=== PATIENT | female | born 2005 | race Two or more races ===

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

== ENCOUNTER 2023-04-12 14:16 | Outpatient (OUT) | payer OTHER, SELFPAY ==
--- NOTE | 2023-04-12 14:18 | US_ITS ---
[address] [address] Patient Name: YVON SYED MRN: [id number] date: 2005 Sex: F Assigned Patient Location: US Current Patient Location: US Accession/Order Number: [id number] Exam Date: 04/12/2023 14:18 Report Date: 04/12/2023 15:01 At the request of: PAPI LESTER Procedure: US OB transvaginal EXAMINATION: US OB transvaginal HISTORY: MISSED MENSES COMPARISON: No relevant comparison available. FINDINGS: Rivero intrauterine gestation Gestational sac: 4.32 cm, 9 weeks 5 days CRL: 3.27 cm, 10 weeks 1 day Yolk sac: 4 mm Heart rate: 157 bpm Cervix: Closed, 4.6 cm The uterus is normal, anteverted The ovaries are normal Clinical age: 9 weeks 3 days Clinical ROB: 11/12/2023 Ultrasound age: 10 weeks 1 day Ultrasound ROB: 11/07/2023 US/US OB transvaginal IMPRESSION: Viable rivero intrauterine gestation measuring 10 weeks 1 day Electronically authenticated by: CHARLES BONDS Date: 04/12/2023 15:01
== END 2023-04-12 14:17 | disposition home or self-care (01) ==
LOC: US 14:16
PROVIDERS: Visit Provider Obstetrics & Gynecology
DX: O20.0 Threatened abortion (principal); Z3A.10 10 weeks gestation of pregnancy; N92.6 Irregular menstruation, unspecified
CPT/HCPCS: 76817

== ENCOUNTER 2023-04-20 11:00 | Outpatient (OUT) | payer OTHER, SELFPAY ==
[2023-04-20 11:36] LABS: BOX Test Sent Out Y
[2023-04-20 11:39] LABS: Basophils Percent Auto 0.1 % (0.2-2.0); Eosinophils Percent Auto 0.4 % (0.9-7.0); Hematocrit 39.9 % (36.0-48.0); Hemoglobin 13.5 g/dL (12.0-16.0); Immature Granulocytes Abs Auto 0.02 10^3/uL (0.00-0.03); Immature Granulocytes Pct Auto 0.2 % (0.0-0.5); Lymphocytes Absolute Auto 1.9 10^3/uL (1.2-3.8); Lymphocytes Percent Auto 23.4 % (20.5-60.0); Mean Corpuscular HGB Conc 33.8 g/dL (29.9-35.2); Mean Corpuscular Hemoglobin 31.9 pg (26.7-34.0); Mean Corpuscular Volume 94.3 fL (81.0-99.0); Mean Platelet Volume 9.5 fL (9.5-13.5); Monocytes Absolute Auto 0.4 10^3/uL (0.3-0.8); Monocytes Percent Auto 4.7 % (1.7-12.0); Neutrophils Absolute Auto 5.8 10^3/uL (1.4-6.5); Neutrophils Percent Auto 71.2 % (43.0-75.0); Platelet Count 313 10^3/uL (150-450); Red Blood Count 4.23 10^6/uL (4.20-5.40); Red Cell Distribution Width 11.4 % (11.0-15.0); White Blood Count 8.1 10^3/uL (4.0-11.0)
[2023-04-20 12:38] LABS: Thyroid Stimulating Hormone 0.124 uIU/mL (0.516-4.130)
[2023-04-20 12:46] LABS: Estimated Average Glucose 74 mg/dL; Glycohemoglobin A1C 4.2 % (4.5-6.2)
[2023-04-21 10:49] LABS: HBsAg Screen Negative (Negative); HCV Ab Non Reactive (Non Reactive); HIV Ab/p24 Ag Screen Non Reactive (Non Reactive)
[2023-04-21 11:04] LABS: Rapid Plasma Reagin, Quant Non Reactive titer (NonRea<1:1)
== END 2023-04-20 11:01 | disposition home or self-care (01) ==
LOC: LAB 11:02
PROVIDERS: Visit Provider Obstetrics & Gynecology
DX: N92.6 Irregular menstruation, unspecified (principal); Z36.0 Encounter for antenatal screening for chromosomal anomalies
CPT/HCPCS: 36415; 83036; 84443; 85025; 86592; 86762; 86803; 86850; 86900; 86901; 87086; 87340; 87389

== ENCOUNTER 2023-07-02 08:09 | Outpatient (OUT) | payer OTHER, SELFPAY ==
--- NOTE | 2023-07-02 08:13 | US_ITS ---
[address] [address] Patient Name: YVON SYED MRN: [id number] date: 2005 Sex: F Assigned Patient Location: [facility] Current Patient Location: [facility] Accession/Order Number: [id number] Exam Date: 07/02/2023 08:13 Report Date: 07/02/2023 09:16 At the request of: SHIVAM BLACK Procedure: US OB cervical length EXAMINATION: US OB cervical length, US OB anatomy HISTORY: CERVICAL LENGTH COMPARISON: No relevant comparison available. TECHNIQUE: Transabdominal sonographic examination was performed for obstetrical and evaluation. FINDINGS: Number: 1 Heart Rate: 140.0 bpm H.B. /min Amniotic Fluid Volume: Subjectively normal position: Cephalic presentation. Longitudinal lie Placental Location: ANTERIOR, the placental edge is 1.7 cm from the internal os Cervix Length: 4 cm , closed Normal anatomy: Lateral ventricles, cerebellum, posterior fossa, nose, lips, orbits, four-chamber heart, RVOT, LVOT, diaphragm, stomach, kidneys, abdominal insertion, bladder, umbilical arteries, three-vessel cord, spine, extremities BIOMETRY: BPD: 5.2 cm 21 weeks 5 days , 74% HC: 19.5 cm 21 weeks 5 days, 71% AC: 17.5 cm 22 weeks 3 days, 85% FL: 3.9 cm 22 weeks 3 days , 86% EFW:494.7 grams; 1 lb. 1 oz., greater than 97% FL/AC: 22.2 FL/BPD: 75.2 HC/AC: 1.1 GESTATIONAL AGE: Age by EDC: 21 weeks 0 days Age by current US: 22 weeks 1 days ROB by current US: 11/04/2023 ROB by EDC: 11/12/2023 US/US OB cervical length IMPRESSION: Marginal placenta previa. The placental edge is 1.7 cm from the internal os Closed cervix measuring 4 cm Otherwise normal anatomy scan *Reference: [employer] Practice Guideline for the performance of Obstetric Ultrasound Examinations, January 07, 2007. Electronically authenticated by: CHARLES BONDS Date: 07/02/2023 09:16
--- NOTE | 2023-07-02 08:13 | US_ITS ---
[address] [address] Patient Name: YVON SYED MRN: [id number] date: 2005 Sex: F Assigned Patient Location: [facility] Current Patient Location: [facility] Accession/Order Number: [id number] Exam Date: 07/02/2023 08:13 Report Date: 07/02/2023 09:16 At the request of: SHIVAM BLACK Procedure: US OB anatomy EXAMINATION: US OB cervical length, US OB anatomy HISTORY: CERVICAL LENGTH COMPARISON: No relevant comparison available. TECHNIQUE: Transabdominal sonographic examination was performed for obstetrical and evaluation. FINDINGS: Number: 1 Heart Rate: 140.0 bpm H.B. /min Amniotic Fluid Volume: Subjectively normal position: Cephalic presentation. Longitudinal lie Placental Location: ANTERIOR, the placental edge is 1.7 cm from the internal os Cervix Length: 4 cm , closed Normal anatomy: Lateral ventricles, cerebellum, posterior fossa, nose, lips, orbits, four-chamber heart, RVOT, LVOT, diaphragm, stomach, kidneys, abdominal insertion, bladder, umbilical arteries, three-vessel cord, spine, extremities BIOMETRY: BPD: 5.2 cm 21 weeks 5 days , 74% HC: 19.5 cm 21 weeks 5 days, 71% AC: 17.5 cm 22 weeks 3 days, 85% FL: 3.9 cm 22 weeks 3 days , 86% EFW:494.7 grams; 1 lb. 1 oz., greater than 97% FL/AC: 22.2 FL/BPD: 75.2 HC/AC: 1.1 GESTATIONAL AGE: Age by EDC: 21 weeks 0 days Age by current US: 22 weeks 1 days ROB by current US: 11/04/2023 ROB by EDC: 11/12/2023 US/US OB anatomy IMPRESSION: Marginal placenta previa. The placental edge is 1.7 cm from the internal os Closed cervix measuring 4 cm Otherwise normal anatomy scan *Reference: [facility] Practice Guideline for the performance of Obstetric Ultrasound Examinations, January 07, 2007. Electronically authenticated by: CHARLES BONDS Date: 07/02/2023 09:16
--- OUTSIDE RECORDS SUMMARY | 2023-07-02 08:13 | XMS_ITS | CCD ---
Author Organization [facility] Care Team Providers Care Dip Stand Loader Name Role Phone Rosalinda Rodrigues Primary Care Provider DANELLE SALDAÑA Primary Care Unavailable SELF, REFERRED Referring Unavailable RONNY ARAUJO Attending Unavailable URIAH LEUNG Admitting Unavailable Lilia VISUAL MERCHANDISING MANAGER - TESTER/LIFT TRUCKER, Rosalinda C Primary Care Provi rashaad Unavailable LILIA, ROSALINDA C Primary Care Unavailable VIJAY RUSSELL Attending Unavailable LILIA, ROSALINDA C Primary Care Unavailable VIJAY RUSSELL Attending Unavailable LILIA, ROSALINDA C Referring Unavailable LILIA, ROSALINDA C Primary Care Unavailable LILIA, ROSALINDA C Referring Unavailable LILIA, ROSALINDA C Primary Care Unavailable LILIA, ROSALINDA C Primary Care Unavailable SHIVA BAILEY Attending Unavailable Dayanara HARRELL, Roland Primary Care Provider RICKY ALBERT Referring Unavailable ROLAND KRAUS Primary Care UnavailROLAND Martines Referring Unavailabl ROLAND Sanchez Primary Care Unavailabl ROULA Vaughan Referring Unavailable ROLAND KRAUS Primary Care Unavailivory KUMAR, DR SHAHEEN Nassar Admitting Unavailabl e SOFIA .SHIVAM Consulting Unavailable JOSÉ, DR SHAHEEN Nassar Attending Unavailabl e KARDANITZA ., DR HESTER Attending Unavailabl e KARASIK ., DR HESTER Admitting Unavailabl e KARASIK ., DR HESTER Consulting Unavailabl e KARASIK ., DR HESTER Consulting Unavailabl e KARASIK ., DR HESTER Attending Unavailabl e KARASIK ., DR HESTER Admitting Unavailabl e NONE, XXXX Primary Care Physician Unavailab Marvin Roque Attending Unavailable PAPI LESTER Attending Unavailable SHIVAM BLACK Attending Unavailable Medications Current Medications Medication Drug Class(es) Dates Sig (Normalized) Sig (Original) acetaminophen 500 mg oral tablet (3 sources) Start: 04-10-2020 take 1 tablet by mouth every six hours as needed for pain acetaminophen (TYLENOL) 500 MG tablet Take 1 tablet by mouth every 6 hours as needed for Pain 60 tablet 0 04/10/2020 Active [id number] 200 actuat albuterol 0.09 mg/actuat metered dose inhaler (2 sources) beta2-Adrenergic Agonist Start: 03-04-2021 take 2 puff(s) by inhalation every four hours as needed for wheezing albuterol sulfate HFA 108 (90 Base) MCG/ACT inhaler Indications: Mild intermittent asthma without complication Inhale 2 puffs into the lungs every 4 hours as needed for Wheezing or Shortness of Breath 1 each 1 03/04/2021 Active Start: 03-20-2019 take 2 puff(s) by in halation every six hours as needed for wheezing albuterol sulfate HFA 108 (90 Base) MCG/ACT inhaler Indications: Acute bronchitis, unspecified organism Inhale 2 puffs into the lungs every 6 hours as needed for Wheezing 1 Inhaler 0 03/20/2019 Active albuterol sulfate HFA 108 (90 Base) MCG/ACT inhaler (6 sources) Start: 03-20-2019 take 2 puff(s) by inhalation every six hours as needed for wheezing albuterol sulfate HFA 108 (90 Base) MCG/ACT inhaler Indications: Acute bronchitis, unspecified organism Inhale 2 puffs into the lungs every 6 hours as needed for Wheezing 1 Inhaler 0 03/20/2019 Active cetirizine hydrochloride 10 mg oral tablet (1 source) Histamine-1 Receptor Antagonist Start: 09-27-2022 take 1 tablet by mouth once daily cetirizine 10 mg Tab 10 mg = 1 tab(s), Oral, Daily, # 30 tab(s), Refills(s) 0 Start Date: 09/27/22 Status: Ordered docusate sodium 50 mg / sennosides, intermediate 8.6 mg oral tablet (3 sources) Start: 04-14-2020 take 8.6-50 mg by mouth once as needed senna-docusate (PERICOLACE) 8.6-50 MG per tablet Indications: Constipation, unspecified constipation type Take 1 tablet by mouth daily as needed for Constipation 20 tablet 0 04/14/2020 Active fluconazole 100 mg oral tablet (1 source) Azole Antifungal Start: 09-14-2020 End: 09-21-2020 take 1 tablet by mouth once daily fluconazole (DIFLUCAN) 100 MG tablet Indications: Acute vaginitis Take 1 tablet by mouth daily for 7 days 7 tablet 0 09/14/2020 09/21/2020 Active ibuprofen 400 mg oral tablet (5 sources) Nonsteroidal Anti-inflammatory Drug Start: 03-31-2020 End: 04-10-2020 take 1 tablet by mouth every six hours as needed for pain ibuprofen (IBU) 400 MG tablet Take 1 tablet by mouth every 6 hours as needed for Pain 30 tablet 0 04/10/2020 Active 1 ml medroxyPROGESTERone acetate 150 mg/ml injection (6 sources) Progestin Start: 04-10-2019 medroxyPROGESTERone (DEPO-PROVERA) 150 MG/ML injection Inject 1 mL into the muscle every 3 months for 1 dose 1 mL 1 04/10/2019 Active metroNIDAZOLE 500 mg oral tablet (1 source) Nitroimidazole Antimicrobial Start: 09-14-2020 End: 09-21-2020 take 1 tablet by mouth twice daily metroNIDAZOLE (FLAGYL) 500 MG tablet Indications: Acute vaginitis Take 1 tablet by mouth 2 times daily for 7 days 14 tablet 0 09/14/2020 09/21/2020 Active 3 ml sodium chloride 9 mg/ml injection (3 sources) Start: 04-10-2020 sodium chloride flush 0.9 % injection 10 mL Start: 04-10-2020 End: 04-10-2020 0.9 % sodium chloride bolus Completed/Discontinued Medications Medication Drug Class(es) Dates Sig (Normalized) Sig (Original) cephalexin 250 mg oral capsule (3 sources) Cephalosporin Antibacterial Start: 04-10-2020 End: 04-10-2020 cephALEXin (KEFLEX) capsule 500 mg Start: 04-10-2020 End: 04-15-2020 take 1 capsule by mouth three times daily cephALEXin (KEFLEX) 500 MG capsule Take 1 capsule by mouth 3 times daily for 5 days 15 capsule 0 04/10/2020 04/15/2020 Active iopamidol (ISOVUE-370) 76 % injection 75 mL (1 source) Start: 04-10-2020 End: 04-10-2020 iopamidol (ISOVUE-370) 76 % injection 75 mL 1 ml morphine sulfate 4 mg/ml injection (1 source) Opioid Agonist Start: 04-10-2020 End: 04-10-2020 morphine sulfate (PF) injection 4 mg 2 ml ondansetron 2 mg/ml injection (3 sources) Serotonin-3 Receptor Antagonist Start: 04-10-2020 End: 04-10-2020 ondansetron (ZOFRAN) injection 4 mg Start: 03-31-2020 ondansetron (Z OFRAN ODT) [address] 1 tablet under the tongue every 8 hours as needed for Nausea or Vomiting 10 tablet 0 03/31/2020 Active predniSONE 20 mg oral tablet (1 source) Start: 09-27-2022 take 1 tablet by mouth once daily predniSONE 20 mg Tab 20 mg = 1 tab(s), Oral, As Directed, Take two tabs by mouth daily for three days, then one tab daily for three days, # 9 tab(s), Refills(s) 0 Start Date: 09/27/22 Status: Ordered Problems Active Problems Problem Classification Problem Date Documented Date Episodic/Chronic Abdominal pain (3 sources) Right lower quadrant pain; Translations: [Suprapubic pain] Episodic Allergic reactions (2 sources) Urticaria; Translations: [Contact dermatitis] Onset: 09-27-2022 Episodic Asthma (8 sources) Exercise-induced asthma; Translations: [Exercise induced bronchospasm] Onset: 01-02-2018 01-02-2018 Chronic Headache; including migraine (3 sources) Headache; including migraine; Translations: [HEADACHE UNSPECIFIED] Onset: 03-19-2022 Other female genital disorders (1 source) Vaginal discharge; Translations: [Other specified noninflammatory disorders of vagina] Episodic Other female genital disorders (4 sources) Other specified noninflammatory disorders of vagina; Translations: [OTH SPEC NONINFLAMMATORY D/O VAGINA] Onset: 07-10-2022 Episodic Other upper respiratory infections (1 source) Viral upper respiratory tract infection; Translations: [Viral URI with cough] Episodic Ovarian cyst (1 source) Cyst of ovary; Translations: [Cyst of ovary, unspecified laterality] Episodic Residual codes; unclassified (1 source) Unprotected sexual intercourse; Translations: [Unprotected sexual intercourse] Episodic Unclassified (1 source) Patient encounter status; Translations: [Well adolescent visit] Urinary tract infections (1 source) Acute cystitis; Translations: [Acute cystitis with hematuria] Episodic Past or Other Problems Problem Classification Problem Date Documented Date Episodic/Chronic Genitourinary symptoms and ill-defined conditions (3 sources) Dysuria; Translations: [Dysuria] Onset: 07-26-2020 07-26-2020 Episodic Immunizations and screening for infectious disease (5 sources) Patient encounter status; Translations: [Encounter for screening for infections with a predominantly sexual mode of transmission] Onset: 03-28-2022 Episodic Inflammatory diseases of female pelvic organs (3 sources) Acute vaginitis; Translations: [Acute vaginitis] Onset: 03-18-2021 Episodic Influenza (1 source) Influenza due to other identified influenza virus with other respiratory manifestations; Translations: [FLU D/T OTH ID FLU VIR OTH RSP MANF] Onset: 03-22-2022 Episodic Other lower respiratory disease (8 sources) Dyspnea on exertion; Translations: [Dyspnea, unspecified] Onset: 12-26-2016 12-26-2016 Episodic Other screening for suspected conditions (not mental disorders or infectious disease) (8 sources) Special examination status; Translations: [Encounter for examination for participation in sport] Onset: 01-02-2018 01-02-2018 Episodic Other skin disorders (8 sources) Dry skin; Translations: [Xerosis cutis] Onset: 12-26-2016 12-26-2016 Episodic Results Test Name Value Interpretation Reference Range [facility] ED Note-Physicianon 10-08-19 ED Note-Physician Basic Information Time Seen: Be XIONG, Ruperto Luna. 09/27/2022 11:08 Chief Complaint c/o intermittent rash and itching ponset 2 days ago no relief carly houston denied any difficulty breathing History of Present Illness 17-year-old female reports emerged department with chief complaint of a rash with itching that started about 2 days ago. States that she has no relief. Denies any known contact with anything. Denies any new soaps detergents or shampoos. States it just itches. Reports that is not really helping with Benadryl, she does not like to take Benadryl. Denies any trouble breathing, nausea or vomiting. Denies any other symptoms at this time. Reports that mostly behind her ears, neck, goes down onto her chest. States is on her hands as well. Review of Systems A 10 point review of systems is negative except as noted above. Medical and Surgical History: Reviewed and noted Social history: Lives at home Family History: Reviewed. Tobacco: Denies Physical Exam Vitals & Measurements T: 37.0 ?C(Oral) HR: 80(Peripheral) RR: 16 BP: 103/63 SpO2: 98% HT: 162.56 cm WT: 55.3 kg BMI: 20.93 General: The patient appears well and in no apparent distress. Patient is resting comfortably in chair. Afebrile Skin: Warm, dry, no pallor noted. There is very mild erythema, and a urticarial type fashion around the patient's bilateral ears, and extending onto her chest. Small areas around the arm. No warmth with palpation. Blanches when palpated. Head: Normocephalic, atraumatic Neck: No JVD Eye: PERRLA, EOMI ENT: Moist mucus membranes Cardiovascular: Regular rate normal peripheral perfusion Respiratory: No respiratory distress no accessory muscle use no obvious audible wheezing Chest Wall: no deformity Musculoskeletal: normal ROM, no deformity, no swelling GI: No obvious distention soft nontender nondistended no guarding rebounding or rigidity Neurological: A&O moves all extremities equal strength and symmetry Psychiatric: Cooperative and appropriate Medical Decision Making MEDICAL DECISION MAKING Number and Complexity of Problems Differential Diagnosis: [] [facility] Data External documents reviewed: [] My EKG interpretation: [] My CT interpretation: [] My X-ray interpretation: [] My Ultrasound interpretation: [] Decision rules/scores evaluated: [] Discussed with: [] Treatment and Disposition ED Course: 17-year-old female reports emergency department with chief complaint of a rash on her ears, going down onto her face and chest. States that she is not sure why she got into. Reports itching. States been gone for 2 days. Denies any other symptoms with this. Denies any fevers chills nausea or vomiting. On physical exam it does appear to be urticarial. Blanches when palpated. I believe that this is a contact dermatitis that she may have gotten something into. Unknown what she may have been exposed to. Nevertheless, patient be started on cetirizine, as well as prednisone to help with symptoms. Discussed return precautions. Follow-up with your primary care provider in 3 to 5 days. If symptoms worsen, do not improve, or new symptoms arise please report back to emergency department for further evaluation. The patient was understanding and agreeable to plan moving forward. Shared decision making: [] Code status: [] Assessment/Plan Contact dermatitis (L25.9: Unspecified contact dermatitis, unspecified cause) Orders: cetirizine, 10 mg = 1 tab(s), Oral, Daily, # 30 tab(s), Refills(s) 0 predniSONE, 20 mg = 1 tab(s), Oral, As Directed, Take two tabs by mouth daily for three days, then one tab daily for three days, # 9 tab(s), Refills(s) 0 Disposition Plan Patient Discharge Condition Stable Discharge Disposition To home Discharge Prescription List Prescriptions cetirizine 10 mg Tab, 10 mg= 1 tab(s), Oral, Daily predniSONE 20 mg Tab, 20 mg= 1 tab(s), Oral, As Directed Follow-up With When Contact Information Anaid LUTZ In 3 days 09/30/2022 EDT [address] [facility] [address] [place] [id number] Business (1) Additional Instructions: Follow-up with your primary care provider in 3 to 5 days. If symptoms worsen, do not improve, or new symptoms arise please report back to emergency department for further evaluation. Patient Education Contact Dermatitis, [id number] Attestation Patient seen and evaluated by the physician resident programs assistant. Attending physician was present in the emergency department and supervised care. This visit was performed by both the physician and an APC. I performed all aspects of the MDM as documented. This report was transcribed using voice recognition software. Every effort was made to ensure accuracy, however, inadvertently computerized ent physician mistakes may be present. Appropriate healthcare PPE was used in evaluating this patient. The patient was placed in a mask. The healthcare provider was wearing mask, gloves, an (more content not included)... [facility] Comment on above: Result Comment: Elec tronically Signed By: Ruperto Lr PA-C\.br\Date and Time Signed: 09/27/22 11:48 EDT\.br\Electronically Co-Signed By: Marvin Bartlett MD\.br\Date and Time Co-Signed: 10/07/22 08:14 EDT Consent for Treatmenton 09-08 Consent for Treatment [id number] .[id number]:127 [facility] Discharge Instructionson Discharge Instructions [id number] 1.00CD:127 [facility] ED Clinical Summaryon 2022 ED Clinical Summary [place] [id number] ED Clinical Summary Person Information Name: YVON SMALLS [facility] Age: 17 Years : 2005 Sex: Female Language: Estonian PCP: NONE, XXXX Marital Status: Single Visit Id: Visit Reason: Rash; RASH ON FACE Speciality: Acuity: 4 Enc Type: Emergency Med Service: Emergency Arrival: 09/27/2022 10:57:13 Discharge: 09/27/2022 11:39:30 LOS: 000 00:42 Checkin: 09/27/2022 10:57:13 Checkout: 09/27/2022 11:39:30 Dispo Type: Home (Routine DC) EVENTS: Event Name Event Status Request Date/Time Start Date/Time Complete Date/Time Arrive Complete 09/27/2022 10:57:13 09/27/2022 10:57:13 09/27/2022 10:57:13 Document Home Meds Request 09/27/2022 10:57:13 Triage Complete 09/27/2022 10:57:13 09/27/2022 11:05:49 09/27/2022 11:05:49 Bed Assign Complete 09/27/2022 11:06:00 09/27/2022 11:06:00 09/27/2022 11:06:00 Dr Exam Complete 09/27/2022 11:06:00 09/27/2022 11:08:06 09/27/2022 11:08:06 RN Exam Complete 09/27/2022 11:06:00 09/27/2022 11:38:49 09/27/2022 11:38:49 Registration Complete 09/27/2022 11:08:06 09/27/2022 11:30:19 09/27/2022 11:30:19 Discharge Complete 09/27/2022 11:28:23 09/27/2022 11:39:35 09/27/2022 11:39:35 Reg Complete Request 09/27/2022 11:30:19 Reg Bed Request Complete 09/27/2022 11:30:19 09/27/2022 11:30:19 09/27/2022 11:30:19 Transfer Complete 09/27/2022 11:39:35 09/27/2022 11:39:35 09/27/2022 11:39:35 ADDRESS: [address] [place] [phone] PHYS DOC NOTES: MEDICAL INFORMATION: Prescriptions Given: New Medications Printed Prescriptions cetirizine (cetirizine 10 mg Tab) 1 Tablets By Mouth every day. Refills: 0. predniSONE (predniSONE 20 mg Tab) 1 Tablets By Mouth As Directed. Take two tabs by mouth daily for three days, then one tab daily for three days. Refills: 0. PATIENT EDUCATION INFORMATION: Instructions: Contact Dermatitis, [id number] Follow up: With: Address: When: Anaid LUTZ [address] [place] [address] [address], [place] [address] Business (1) In 3 days 09/30/2022 Comments: Follow-up with your primary care provider in 3 to 5 days. If symptoms worsen, do not improve, or new symptoms arise please report back to emergency department for further evaluation. DIAGNOSIS: Contact dermatitis [facility] ED Patient Education Noteon 09-27-2022 ED Patient Education Note Dermatology Contact Dermatitis Dermatitis is redness, soreness, and swelling (inflammation) of the skin. Contact dermatitis is a reaction to something that touches the skin. There are two types of contact dermatitis: ? Irritant contact dermatitis. This happens when something bothers (irritates) your skin, like soap. ? Allergic contact dermatitis. This is caused when you are exposed to something that you are allergic to, such as poison joaquin. What are the causes? ? Common causes of irritant contact dermatitis include: ? Makeup. ? Soaps. ? Detergents. ? Bleaches. ? Acids. ? Metals, such as nickel. ? Common causes of allergic contact dermatitis include: ? Plants. ? Chemicals. ? Jewelry. ? Latex. ? Medicines. ? Preservatives in products, such as clothing. What increases the risk? ? Having a job that exposes you to things that bother your skin. ? Having asthma or eczema. What are the signs or symptoms? Symptoms may happen anywhere the irritant has touched your skin. Symptoms include: ? Dry or flaky skin. ? Redness. ? Cracks. ? Itching. ? Pain or a burning feeling. ? Blisters. ? Blood or clear fluid draining from skin cracks. With allergic contact dermatitis, swelling may occur. This may happen in places such as the eyelids, mouth, or genitals. How is this treated? ? This condition is treated by checking for the cause of the reaction and protecting your skin. Treatment may also include: ? Steroid creams, ointments, or medicines. ? Antibiotic medicines or other ointments, if you have a skin infection. ? Lotion or medicines to help with itching. ? A bandage (dressing). Follow these instructions at home: Skin care ? Moisturize your skin as needed. ? Put cool cloths on your skin. ? Put a baking soda paste on your skin. Stir water into baking soda until it looks like a paste. ? Do not scratch your skin. ? Avoid having things rub up against your skin. ? Avoid the use of soaps, perfumes, and dyes. Medicines ? Take or apply lnxz-web-qnxyscj and prescription medicines only as told by your doctor. ? If you were prescribed an antibiotic medicine, take or apply it as told by your doctor. Do not stop using it even if your condition starts to get better. Bathing ? Take a bath with: ? Epsom salts. ? Baking soda. ? Colloidal oatmeal. ? Bathe less often. ? Bathe in warm water. Avoid using hot water. Bandage care ? If you were given a bandage, change it as told by your doctor. ? Wash your hands with soap and water before and after you change your bandage. If soap and water are not available, use hand rotary kiln operator. General instructions ? Avoid the things that caused your reaction. If you do not know what caused it, keep a journal. Write down: ? What you eat. ? What skin products you use. ? What you drink. ? What you wear in the area that has symptoms. This includes jewelry. ? Check the affected areas every day for signs of infection. Check for: ? More redness, swelling, or pain. ? More fluid or blood. ? Warmth. ? Pus or a bad smell. ? Keep all follow-up visits as told by your doctor. This is important. Contact a doctor if: ? You do not get better with treatment. ? Your condition gets worse. ? You have signs of infection, such as: ? More swelling. ? Tenderness. ? More redness. ? Soreness. ? Warmth. ? You have a fever. ? You have new symptoms. Get help right away if: ? You have a very bad headache. ? You have neck pain. ? Your neck is stiff. ? You throw up (vomit). ? You feel very sleepy. ? You see red streaks coming from the area. ? Your bone or joint near the area hurts after the skin has healed. ? The area turns darker. ? You have trouble breathing. Summary ? Dermatitis is redness, soreness, and swelling of the skin. ? Symptoms may occur where the irritant has touched you. ? Treatment may include medicines and skin care. ? If you do not know what caused your reaction, keep a journal. ? Contact a doctor if your condition gets worse or you have signs of infection. This information is not intended to replace advice given to you by your health care provider. Make sure you discuss any questions you have with your health care provider. Document Revised: 01/09/2022 Document Reviewed: 01/09/2022 [employer] Content Patient Education ? 2022 [employer]. [facility] ED Patient Summaryon 023 ED Patient Summary [address] [address] Patient Discharge Instructions Person Information Name: YVON SMALLS Age: 17 Years Arrival Date: 09/27/2022 10:57:13 Discharge Diagnosis: Contact dermatitis Primary Care Physician: NONE, XXXX Provider Information Primary Provider: Advanced Fare Enforcement Officer:None The exam and treatment you received in the Emergency Department were for an urgent problem and are not intended as complete care. It is important that you follow up with a doctor, nurse practitioner, or physician?s resident programs assistant for ongoing care. If your symptoms become worse or you do not improve as expected and you are unable to reach your usual health care provider, you should return to the Emergency Department. We are available 24 hours a day. YVON SMALLS has been given the following list of patient education materials, prescriptions and follow-up instructions: Follow-up Instructions: With: Address: When: Anaid LUTZ [address] [place] [address] [address] [phone] Business (1) In 3 days 09/30/2022 Comments: Follow-up with your primary care provider in 3 to 5 days. If symptoms worsen, do not improve, or new symptoms arise please report back to emergency department for further evaluation. In the event that this physician does not participate in your insurance network, please consult with your insurance company to find a nearby participating provider. Patient Education Materials: Contact Dermatitis, Yicx-vz-Jhyn A MESSAGE TO ALL PATIENTS REGARDING OPIOIDS PRESCRIPTION OPIOIDS: WHAT YOU NEED TO KNOW Prescription opioids can be used to help relieve rydkwele-zc-fziqnn pain and are often prescribed following a surgery or injury, or for certain health conditions. These medications can be an important part of the treatment but also come with serious risks. It is important to work with your healthcare provider to make sure you are getting the safest, most effective care. WHAT ARE THE RISKS AND SIDE EFFECTS OF OPIOID USE? Prescription opioids carry serious risks of addiction and overdose, especially with prolonged use. An opioid overdose, often marked by slowed breathing, can cause sudden . The use of prescription opioids can have a number of side effects as well, even when taken as directed: ? Tolerance?meaning you might need to take more of the medication for the same pain relief ? Physical dependence?meaning you have symptoms of withdrawal when a medication is stopped ? Increased sensitivity to pain ? Constipation ? Nausea, vomiting, and dry mouth ? Sleepiness and dizziness ? Confusion ? Depression ? Low levels of testosterone that can result in lower sex drive, energy, and strength ? Itching and sweating RISKS ARE GREATER WITH: ? History of drug misuse, substance use disorder, or overdose ? Mental health conditions (such as depression or anxiety) ? Sleep apnea ? Older age (65 years and older) ? Avoid alcohol while taking prescription opioids. Also, unless specifically advised by your health care provider, medications to avoid include: ? Benzodiazepines (such as Xanax or Valium) ? Muscle relaxants (such as Soma or Flexeril) ? Hypnotics (such as Ambien or Lunesta) ? Other prescription opioids KNOW YOUR OPTIONS Talk to your health care provider about ways to manage your pain that don?t involve prescription opioids. Some of these options may actually work better and have fewer risks and side effects. Options may include: ? Pain relievers such as acetaminophen, ibuprofen, and naproxen ? Some medication that are also used for depression or seizures ? Physical therapy and exercise ? Cognitive behavioral therapy, a psychological, goal-directed approach, in which patients learn how to modify physical, behavioral, and emotional triggers of pain and stress. IF YOU ARE PRESCRIBED OPIOIDS FOR PAIN: ? Never take opioids in greater amounts or more often than prescribed. ? Follow up with your primary health care provider. o Work together to create a plan on how to manage your pain. o Talk about ways to help manage your pain that don?t involve prescription opioids. o Talk about any and all concerns and side effects. ? Help prevent misuse and abuse o Never sell or share prescription opioids. o Never use another person?s prescription opioids. ? Store prescription opioids in a secure place and out of reach of others (this may include visitors, children, friends, and family). ? Safely dispose of unused prescription opioids: Find your community drug take-back program or your pharmacy mail-back program, or flush them down the toilet, following guidance from the Food and Drug Administration (www.fda.gov/Drugs/Re sourcesForYou). ? Visit www.cdc.gov/drugoverd ose to learn about the (more content not included)... Normal [facility] CHLAMYDIA/GONOCOCCUS RANJAN (SW AB/URINE/PAPon 07-13-2022 Chlamydia trachomatis, RANJAN Negative Normal Negative [facility] Comment on above: Performed By: #### C T/NGNA #### [facility] [address] [place] [address] Dr. Marbella Campos Neisseria gonorrhoeae, RANJAN Negative Normal Negative [facility] Comment on above: Performed By: #### C T/NGNA #### [facility] [address] [place] [address] Dr. Marbella Campos VAGINITIS/VAGINOSIS DNA PROB David 07-12-2022 Otto species Negative Normal Negative [facility] Comment on above: Performed By: #### V AGINT #### [facility] [address] [place] [address] Dr. Marbella Campos Gardnerella vaginalis Positive Abnormal Negative [facility] Comment on above: Performed By: #### V AGINT #### [facility] [address] [place] [address] Dr. Marbella Campos Trichomonas vaginalis Negative Normal Negative [facility] Comment on above: Performed By: #### V AGINT #### [facility] [address] [place] [address] Dr. Marbella Campos CHLAMYDIA/GONOCOCCUS RANJAN (SW AB/URINE/PAPon 03-31-2022 Chlamydia trachomatis, RANJAN Negative Normal Negative [facility] Comment on above: Performed By: #### C T/NGNA #### [facility] [address] [place] [address] Dr. Marbella Campos Neisseria gonorrhoeae, RANJAN Negative Normal Negative [facility] Comment on above: Performed By: #### C T/NGNA #### [facility] [address] [place] [address] Dr. Marbella Campos VAGINITIS/VAGINOSIS DNA PROB David 03-30-2022 Otto species Negative Normal Negative [facility] Comment on above: Performed By: #### V AGINT #### [facility] [address] [place] [address] Dr. Marbella Campos Gardnerella vaginalis Positive Abnormal Negative [facility] Comment on above: Performed By: #### V AGINT #### [facility] [address] [place] [address] Dr. Marbella Campos Trichomonas vaginalis Negative Normal Negative [facility] Comment on above: Performed By: #### V AGINT #### [facility] [address] [place] [address] Dr. Marbella Campos INFLUENZA A AND B AGon 03-19 INFLUBNEG SEE BELOW Normal [facility] Comment on above: Result Comment: Nega tive for Flu B protein antigen. Infection due to Flu B cannot be ruled out. Flu B antigen in the sample may be below the detection limit of the test. Performed By: #### I NFLUAB #### [facility] [address] [place] [address] Dr. Marbella Campos INFLUENZA A AG Positive Abnormal NEGATIVE SEE COMMENT [facility] Comment on above: Performed By: #### I NFLUAB #### [facility] [address] [place] [address] Dr. Marbella Campos INFLUENZA B AG Negative Normal NEGATIVE SEE COMMENT [facility] Comment on above: Performed By: #### I NFLUAB #### [facility] [address] [place] [address] Dr. Marbella Campos INFLUPOS SEE BELOW Normal [facility] Comment on above: Result Comment: NOTE : Live attenuated influenzae vaccine viruses can cause a positive result for a rapid influenza diagnostic test if administered up to 7 days prior to rapid testing. Performed By: #### I NFLUAB #### [facility] [address] [place] [address] Dr. Marbella Campos INTERNAL CONTROLS Within Normal Limits Normal Wi thin Normal Limits [facility] Comment on above: Performed By: #### I NFLUAB #### [facility] [address] [place] [address] Dr. Marbella Campos C.trachomatis N.gonorrhoeae DNAon 01-17-2022 C. trachomatis DNA RANJAN+probe Ql (Genital specimen) POSITIVE: CHLAMYDIA TRACHOMATIS DNA detected by nucleic acid amplification. Abnormal NEGATIVE [facility] Comment on above: This test is intended for medical purposes only and is not valid for the evaluation of suspected sexual abuse or for other forensic purposes. In certain contexts, culture may be required to meet applicable laws and regulations for diagnosis of C. trachomatis and N. gonorrhoeae infections. Per 2014 CDC recommendations, this test does not include confirmation of positive results by an alternative nucleic acid target. Results reported to the appropriate Health Department Interpretation and review of laboratory results Abnormal [facility] N. gonorrhoeae DNA Negative NEGATIVE [facility] Comment on above: NEISSERIA GONORRHOEA E DNA not detected by nucleic acid amplification. This test is intended for medical purposes only and is not valid for the evaluation of suspected sexual abuse or for other forensic purposes. In certain contexts, culture may be required to meet applicable laws and regulations for diagnosis of C. trachomatis and N. gonorrhoeae infections. Per 2014 CDC recommendations, this test does not include confirmation of positive results by an alternative nucleic acid target. Specimen Description .CERVIX [facility] Chlamydia/GC,DNA Ampon 01-17 Chlamydia Probe POSITIVE: CHLAMYDIA TRACHOMATIS DNA detected by nucleic acid amplification. Abnormal NEG [facility] Comment on above: Result Comment: This test is intended for medical purposes only and is not valid for the evaluation of suspected sexual abuse or for other forensic purposes. In certain contexts, culture may be required to meet applicable laws and regulations for diagnosis of C. trachomatis and N. gonorrhoeae infections. Per 2014 CDC recommendations, this test does not include confirmation of positive results by an alternative nucleic acid target. Results reported to the appropriate Health Department Performed By: #### S [facility] #### [facility] [place] [address] Metal Trimmer: Yeyo Spencer MD Gonorrhea Probe Negative Normal NEG [facility] Comment on above: Result Comment: NEIS SERIA GONORRHOEAE DNA not detected by nucleic acid amplification. This test is intended for medical purposes only and is not valid for the evaluation of suspected sexual abuse or for other forensic purposes. In certain contexts, culture may be required to meet applicable laws and regulations for diagnosis of C. trachomatis and N. gonorrhoeae infections. Per 2014 CDC recommendations, this test does not include confirmation of positive results by an alternative nucleic acid target. Performed By: #### S WCGP #### [facility] [address] [place] [id number] Metal Trimmer: Yeyo Spencer MD Vaginitis DNA Probeon 2021 Otto Negative Normal NEG [facility] Comment on above: Result Comment: for Otto sp. Method of testing is a DNA probe intended for detection and identification of Otto species, Gardnerella vaginalis, and Trichomonas vaginalis nucleic acid in vaginal fluid specimens from patients with symptoms of vaginitis/vaginosis. Performed By: #### V AGP #### [facility] [address] [place] [id number] Metal Trimmer: Yeyo Spencer MD Gardnerella Positive Abnormal NEG [facility] Comment on above: Result Comment: for Gardnerella vaginalis Performed By: #### V AGP #### [facility] [address] [place] [address] Metal Trimmer: Yeyo Spencer MD Trichomonas Negative Normal NEG [facility] Comment on above: Result Comment: for Trichomonas Vaginalis Performed By: #### V AGP #### [facility] [address] [place] [id number] Metal Trimmer: Yeyo Spencer MD OTTO SPECIES, DNA PROBE Negative NEGATIVE [facility] Comment on above: for Otto sp. Method of testing is a DNA probe intended for detection and identification of Otto species, Gardnerella vaginalis, and Trichomonas vaginalis nucleic acid in vaginal fluid specimens from patients with symptoms of vaginitis/vaginosis. GARDNERELLA VAGINALIS, DNA PROBE Positive Abnormal NEGATIVE [facility] Comment on above: for Gardnerella vagi nalis Interpretation and review of laboratory results Abnormal [facility] Source .VAGINAL SWAB [facility] Trichomonas Vaginalis DNA Negative NEGATIVE [facility] Comment on above: for Trichomonas Vagi nalis [facility] Source .VAGINAL SWAB Normal [facility] Comment on above: Performed By: #### V AGP #### [facility] [address] [id number] Metal Trimmer: Yeyo Spencer MD Chlamydia/GC,DNA Ampon 03-21 Chlamydia Probe Negative Normal NEG [facility] Comment on above: Result Comment: CHLA MYDIA TRACHOMATIS DNA not detected by nucleic acid amplification. This test is intended for medical purposes only and is not valid for the evaluation of suspected sexual abuse or for other forensic purposes. In certain contexts, culture may be required to meet applicable laws and regulations for diagnosis of C. trachomatis and N. gonorrhoeae infections. Per 2014 CDC recommendations, this test does not include confirmation of positive results by an alternative nucleic acid target. Performed By: #### S WCGP #### [facility] [address] [place] [address] [id number] Metal Trimmer: Yeyo Spencer MD Gonorrhea Probe Negative Normal NEG [facility] Comment on above: Result Comment: NEIS SERIA GONORRHOEAE DNA not detected by nucleic acid amplification. This test is intended for medical purposes only and is not valid for the evaluation of suspected sexual abuse or for other forensic purposes. In certain contexts, culture may be required to meet applicable laws and regulations for diagnosis of C. trachomatis and N. gonorrhoeae infections. Per 2014 CDC recommendations, this test does not include confirmation of positive results by an alternative nucleic acid target. Performed By: #### S WCGP #### [facility] [address] [place] [id number] Metal Trimmer: Yeyo Spencer MD Vaginitis DNA Probeon 2020 Vaginitis DNA Probe Specimen Description .VAGINA Special Requests NOT REPORTED Direct Exam POSITIVE for Otto sp. NEGATIVE for Gardnerella vaginalis NEGATIVE for Trichomonas vaginalis Method of testing is a DNA probe intended for detection and identification of Otto species, Gardnerella vaginalis, and Trichomonas vaginalis nucleic acid in vaginal fluid specimens from patients with symptoms of vaginitis/vaginosis. Report Status FINAL 03/18/2021 Normal [facility] Comment on above: Performed By: #### V AGDNA #### [address] [address] Metal Trimmer: Yeyo Spencer MD Cult,Urineon 03-05-2021 Cult,Urine Specimen Description .CLEAN CATCH URINE Special Requests NOT REPORTED Culture NO SIGNIFICANT GROWTH Report Status FINAL 03/05/2021 Normal [facility] Comment on above: Performed By: #### U RC #### [address] [address] Metal Trimmer: Yeyo Spencer MD Urinalysis w/ Microon 2020 ----- Normal [facility] Comment on above: Performed By: #### U AMIC #### [address] [address] Metal Trimmer: Yeyo Spencer MD Bacteria None Normal NONE [facility] Comment on above: Performed By: #### U AMIC #### [address] [address] Metal Trimmer: Yeyo Spencer MD Casts 0 TO 2 Normal 0-2 [facility] Comment on above: Result Comment: HYAL INE Performed By: #### U AMIC #### [address] [address] Metal Trimmer: Yeyo Spencer MD Crystals LM Nom (Urine sed) FEW Abnormal NONE [facility] Comment on above: Result Comment: CALC IUM OXALATE Performed By: #### U AMIC #### [address] [address] Metal Trimmer: Yeyo Spencer MD Epithelial cells LM Ql (Urine sed) 2 TO 5 Normal 0-5 [facility] Comment on above: Performed By: #### U AMIC #### [address] [address] Metal Trimmer: Yeyo Spencer MD Mucus Strands 2+ Abnormal NONE [facility] Comment on above: Performed By: #### U AMIC #### [address] [address] Metal Trimmer: Yeyo Spencer MD Urine RBC's 0 TO 2 Normal 0-2 [facility] Comment on above: Performed By: #### U AMIC #### [address] [address] Metal Trimmer: Yeyo Spencer MD Urine WBC's 0 TO 2 Normal 0-5 [facility] Comment on above: Performed By: #### U AMIC #### [address] [address] Metal Trimmer: Yeyo Spencer MD Bilirubin, SemiQt,Ur Negative Normal NEG [facility] Comment on above: Performed By: #### U AMIC #### [address] [address] Metal Trimmer: Yeyo Spencer MD Blood, Urine Negative Normal NEG [facility] Comment on above: Performed By: #### U AMIC #### [address] [address] Metal Trimmer: Yeyo Spencer MD Clarity (U) Clear Normal CLEAR [facility] Comment on above: Performed By: #### U AMIC #### [address] [address] Metal Trimmer: Yeyo Spencer MD Color (U) Yellow Normal YEL [facility] Comment on above: Performed By: #### U AMIC #### [address] [address] Metal Trimmer: Yeyo Spencer MD Glucose Ql (U) Negative Normal NEG [facility] Comment on above: Performed By: #### U AMIC #### [address] [address] Metal Trimmer: Yeyo Spencer MD Ketones Ql (U) Negative Normal NEG [facility] Comment on above: Performed By: #### U AMIC #### [address] [address] Metal Trimmer: Yeyo Spencer MD Leukocyte esterase Test strip Ql (U) Negative Normal NEG [facility] Comment on above: Performed By: #### U AMIC #### [address] [address] Metal Trimmer: Yeyo Spencer MD Nitrite,Ur Negative Normal NEG [facility] Comment on above: Performed By: #### U AMIC #### [address] [address] Metal Trimmer: Yeyo Spencer MD PH,Ur 6.0 Normal 5.0-8.0 [facility] Comment on above: Performed By: #### U AMIC #### [address] [address] Metal Trimmer: Yeyo Spencer MD Protein Ql (U) Negative Normal NEG [facility] Comment on above: Performed By: #### U AMIC #### [address] [address] Metal Trimmer: Yeyo Spencer MD Spec. Manti,Ur 1.027 Normal 1.005-1.030 [facility] Comment on above: Performed By: #### U AMIC #### [address] [address] Metal Trimmer: Yeyo Spencer MD Urobilinogen,Ur Normal Normal NORM [facility] Comment on above: Performed By: #### U AMIC #### [address] [address] Metal Trimmer: Yeyo Spencer MD Amorphous sediment LM Ql (Urine sed) NOT REPORTED Normal NONE [facility] Comment on above: Performed By: #### U AMIC #### [address] [address] Metal Trimmer: Yeyo Spencer MD Epithelial, Renal NOT REPORTED Normal 0 [facility] Comment on above: Performed By: #### U AMIC #### [address] [address] Metal Trimmer: Yeyo Spencer MD Other Observations NOT REPORTED Normal NREQ [facility] Comment on above: Performed By: #### U AMIC #### [address] [address] Metal Trimmer: Yeyo Spencer MD Trichomonas NOT REPORTED Normal NONE [facility] Comment on above: Performed By: #### U AMIC #### [address] [address] Metal Trimmer: Yeyo Spencer MD Yeast NOT REPORTED Normal NONE [facility] Comment on above: Performed By: #### U AMIC #### [address] [address] Metal Trimmer: Yeyo Spencer MD [id number] 12-07-2020 SARS-CoV-2 (COVID-19) RNA RANJAN+probe Ql (Unsp spec) Detected Abnormal NOTDET [facility] Comment on above: Result Comment: Rapid NAAT: The specimen is POSITIVE for SARS-Cov-2, the novel coronavirus associated with COVID-19. This test has been authorized by the FDA under an Emergency Use Authorization (EUA) for use by authorized laboratories. The ID NOW COVID-19 assay is designed to detect the virus that causes COVID-19 in patients with signs and symptoms of infection who are suspected of COVID-19. An individual without symptoms of COVID-19 and who is not shedding SARS-CoV-2 virus would expect to have a negative (not detected) result in this assay. Fact sheet for Healthcare Providers: https://www.fda.gov/media/786068/download Fact sheet for Patients: https://www.fda.gov/media/860728/download Methodology: Isothermal Nucleic Acid Amplification Results reported to the appropriate Health Department Performed By: #### C OVRB ####[facility] [id number] [place] [address] Lab Director: Gamaliel Calderon DO HIV Ag/Abon 04-27-2020 HIV Ag/Ab Non-Reactive Normal NR [facility] Comment on above: Result Comment: No l aboratory evidence of HIV infection. If acute HIV infection is suspected, consider testing for HIV-1 RNA. Performed By: #### H IVCMB #### [facility] [address] [place] [address] Metal Trimmer: Yeyo Spencer MD HIV Screenon 04-27-2020 HIV Ag/Ab NONREACTIVE NONREACTIVE [place], [place] Comment on above: No laboratory eviden ce of HIV infection. If acute HIV infection is suspected, consider testing for HIV-1 RNA. US PELVIS COMPLETEon 021 US PELVIS COMPLETE EXAMINATION: PELVIC ULTRASOUND 04/27/2020 TECHNIQUE: Transabdominal pelvic ultrasound was performed. COMPARISON: CT 04/10/2020 HISTORY: ORDERING SYSTEM PROVIDED HISTORY: Abdominal pain, suprapubic TECHNOLOGIST PROVIDED HISTORY: This procedure can be scheduled via [facility]. Access your [facility] account by visiting [employer]. ovarian cyst, abdominal pain FINDINGS: Measurements: Uterus: 7.9 x 3.2 x 4.7 cm Endometrial stripe: 7.6 mm Right Ovary: 2.3 x 2.4 x 2 cm Left Ovary: 2.2 x 1.2 x 2 cm Ultrasound Findings: Uterus: Uterus demonstrates normal myometrial echotexture. Endometrial stripe: Endometrial stripe is within normal limits. Right Ovary: Right ovary is within normal limits. Left Ovary: Left ovary is within normal limits. Free Fluid: Minimal free fluid in the cul-de-sac is likely physiologic IMPRESSION: Unremarkable pelvic ultrasound. Interpreted by: Juan Melgar MD Signed by: Juan Melgar MD 1/19/21 Final result Normal [facility] Unremarkable pelvic ultrasound. [place], [place] EXAMINATION: PELVIC ULTRASOUND 04/27/2020 TECHNIQUE: Transabdominal pelvic ultrasound was performed. COMPARISON: CT 04/10/2020 HISTORY: ORDERING SYSTEM PROVIDED HISTORY: Abdominal pain, suprapubic TECHNOLOGIST PROVIDED HISTORY: This procedure can be scheduled via [facility]. Access your [employer] account by visiting [employer]. ovarian cyst, abdominal pain FINDINGS: Measurements: Uterus: 7.9 x 3.2 x 4.7 cm Endometrial stripe: 7.6 mm Right Ovary: 2.3 x 2.4 x 2 cm Left Ovary: 2.2 x 1.2 x 2 cm Ultrasound Findings: Uterus: Uterus demonstrates normal myometrial echotexture. Endometrial stripe: Endometrial stripe is within normal limits. Right Ovary: Right ovary is within normal limits. Left Ovary: Left ovary is within normal limits. Free Fluid: Minimal free fluid in the cul-de-sac is likely physiologic [place], [place], [employer] Incoming Radiant Results From [employer] - 04/27/2020 11:11 AM EST EXAMINATION: PELVIC ULTRASOUND 04/27/2020 TECHNIQUE: Transabdominal pelvic ultrasound was performed. COMPARISON: CT 04/10/2020 HISTORY: ORDERING SYSTEM PROVIDED HISTORY: Abdominal pain, suprapubic TECHNOLOGIST PROVIDED HISTORY: This procedure can be scheduled via [facility]. Access your [employer] account by visiting [employer]. ovarian cyst, abdominal pain FINDINGS: Measurements: Uterus: 7.9 x 3.2 x 4.7 cm Endometrial stripe: 7.6 mm Right Ovary: 2.3 x 2.4 x 2 cm Left Ovary: 2.2 x 1.2 x 2 cm Ultrasound Findings: Uterus: Uterus demonstrates normal myometrial echotexture. Endometrial stripe: Endometrial stripe is within normal limits. Right Ovary: Right ovary is within normal limits. Left Ovary: Left ovary is within normal limits. Free Fluid: Minimal free fluid in the cul-de-sac is likely physiologic IMPRESSION: Unremarkable pelvic ultrasound. [place], [place] Microscopic Urinalysison Amorphous, UA NOT REPORTED None [place], [place] Bacteria, UA MODERATE Abnormal None [place], [place] Casts UA 5 TO 10 HYALINE Reference range defined for non-centrifuged specimen. [place], [place] Crystals, UA NOT REPORTED None /HPF [place], [place] Epithelial Cells UA 20 TO 50 [place], [place] Interpretation and review of laboratory results Abnormal [place], [place] Mucus, UA NOT REPORTED None [place], [place] Other Observations UA NOT REPORTED NOT REQ. [place], [place] RBC (U) [#/Vol] 2 TO 5 [place], [place] Comment on above: Reference range defi marlen for non-centrifuged specimen. Renal Epithelial, UA NOT REPORTED 0 /HPF [place], [place] Trichomonas, UA NOT REPORTED None [place], [place] WBC, UA 10 TO 20 [place], [place] Yeast, UA NOT REPORTED None [place], [place] - [place], [place] Urinalysison 04-14-2020 Bilirubin Urine Negative NEGATIVE [place], [place] Color, UA YELLOW YELLOW [place], [place] Glucose, Ur Negative NEGATIVE [place] Interpretation and review of laboratory results Abnormal [place], [place] Ketones Ql (U) Negative NEGATIVE [place], [place] Leukocyte esterase Test strip Ql (U) TRACE Abnormal NEGATIVE [place] Nitrite, Urine Negative NEGATIVE [place], [place] pH, UA 6.5 [place], [place] Protein (U) [Mass/Vol] Negative NEGATIVE [place], [place] Specific Manti, UA 1.026 [place], [place] Turbidity UA CLOUDY Abnormal CLEAR [place], [place] Urinalysis Comments NOT REPORTED [place], [place] Urine Hgb Negative NEGATIVE [place] Urobilinogen, Urine Normal Normal [place] Chlamydia/GC,DNA Ampon 04-12 Chlamydia Probe Negative Normal NEG [facility] Comment on above: Result Comment: CHLA MYDIA TRACHOMATIS DNA not detected by nucleic acid amplification. This test is intended for medical purposes only and is not valid for the evaluation of suspected sexual abuse or for other forensic purposes. In certain contexts, culture may be required to meet applicable laws and regulations for diagnosis of C. trachomatis and N. gonorrhoeae infections. Per 2014 CDC recommendations, this test does not include confirmation of positive results by an alternative nucleic acid target. Performed By: #### S WCGP #### [facility] HeTexted [address] [place], [place] [id number] Metal Trimmer: Yeyo Spencer MD Gonorrhea Probe Negative Normal NEG [facility] Comment on above: Result Comment: NEIS SERIA GONORRHOEAE DNA not detected by nucleic acid amplification. This test is intended for medical purposes only and is not valid for the evaluation of suspected sexual abuse or for other forensic purposes. In certain contexts, culture may be required to meet applicable laws and regulations for diagnosis of C. trachomatis and N. gonorrhoeae infections. Per 2014 CDC recommendations, this test does not include confirmation of positive results by an alternative nucleic acid target. Performed By: #### S WCGP #### [facility] HeTexted [address] [place], [place] [id number] Metal Trimmer: Yeyo Spencer MD CBC Auto Differentialon Basophils (Bld) [#/Vol] 0.00 10*3/uL [place] Basophils/100 WBC (Bld) 0 % 0 - 2 % [place] Differential Type NOT REPORTED [place] Eosinophils (Bld) [#/Vol] 0.10 10*3/uL [place] Eosinophils/100 WBC (Bld) 1 % 0 - 4 % [place] Erythrocyte distribution width (RBC) [Ratio] 11.7 % 11.5 - 14.9 % [place] Hematocrit (Bld) [Volume fraction] 39.8 % 36 - 46 % [place] Hemoglobin (Bld) [Mass/Vol] 13.3 g/dL 12 - 16 g/dL [place] Interpretation and review of laboratory results Abnormal [place] Lymphocytes (Bld) [#/Vol] 1.60 10*3/uL [place] Lymphocytes/100 WBC (Bld) 15 % Low 25 - 45 % [place] MCH (RBC) [Entitic mass] 31.7 pg 25 - 35 pg [place] MCHC (RBC) [Mass/Vol] 33.5 g/dL 31 - 37 g/dL [place] MCV (RBC) [Entitic vol] 94.5 fL 78 - 102 fL [place] Monocytes (Bld) [#/Vol] 0.60 10*3/uL [place] Monocytes/100 WBC (Bld) 6 % 2 - 8 % [place] Platelet mean volume (Bld) [Entitic vol] 7.1 fL 6 - 12 fL [place] Platelets (Bld) [#/Vol] 322 10*3/uL [place] Platelets (Bld) [#/Vol] NOT REPORTED [place] RBC (Bld) [#/Vol] 4.21 10*6/uL 4 - 5.2 m/uL [place] RBC morphology finding Nom (Bld) NOT REPORTED [place] Segmented neutrophils/100 WBC (Bld) 78 % High 34 - 64 % [place] Segs Absolute 8.50 [place] WBC (Bld) [#/Vol] NOT REPORTED per 100 WBC [place] WBC (Bld) [#/Vol] 10.8 10*3/uL [place] WBC Morphology NOT REPORTED [place], [place] CBC with Diffon 04-10-2020 Abs. Basophil 0.00 k/uL Normal 0.0-0.2 [facility] Comment on above: Performed By: #### M Cesario, CDP, CP, HCG, LIP ####[facility] Wft[address] [place] [address] Lab Director: Gamaliel Calderon DO Abs.Neutrophil (Seg) 8.50 k/uL Normal 1.3-9.1 [facility] Comment on above: Performed By: #### M Cesario, CDP, CP, HCG, LIP ####[facility] Zfk3709 [place] [address] Lab Director: Gamaliel Calderon DO Basophils/100 WBC (Bld) 0 % Normal 0-2 [facility] Comment on above: Performed By: #### M G, CDP, CP, HCG, LIP ####[facility] [address], [place] [phone] Director: Gamaliel Calderon DO Eosinophils (Bld) [#/Vol] 0.10 10*3/uL Normal 0.0-0.4 [facility] Comment on above: Performed By: #### M G, CDP, CP, HCG, LIP ####[facility] [id number], [place] [phone] Director: Gamaliel Calderon DO Eosinophils/100 WBC (Bld) 1 % Normal 0-4 [facility] Comment on above: Performed By: #### M G, CDP, CP, HCG, LIP ####[facility] [address], [place] [phone] Director: Gamaliel Calderon DO Erythrocyte distribution width (RBC) [Ratio] 11.7 % Normal 11.5-14.9 [facility] Comment on above: Performed By: #### M G, CDP, CP, HCG, LIP ####[facility] [address], [place] [phone] Director: Gamaliel Calderon DO Hematocrit (Bld) [Volume fraction] 39.8 % Normal 36-46 [facility] Comment on above: Performed By: #### M G, CDP, CP, HCG, LIP ####[facility] [address], [place] [phone] Director: Gamaliel Calderon DO Hemoglobin (Bld) [Mass/Vol] 13.3 g/dL Normal 12.0-16.0 [facility] Comment on above: Performed By: #### M G, CDP, CP, HCG, LIP ####[facility] [address] [place] [address] Lab Director: Gamaliel Calderon DO Lymphocytes (Bld) [#/Vol] 1.60 10*3/uL Normal 1.2-5.2 [facility] Comment on above: Performed By: #### M G, CDP, CP, HCG, LIP ####[facility] [address] [place] [address] lab Director: Gamaliel Calderon DO Lymphocytes/100 WBC (Bld) 15 % Low 25-45 [facility] Comment on above: Performed By: #### M G, CDP, CP, HCG, LIP ####[facility] [address] [facility].[place], [place] [phone] Director: Gamaliel Calderon DO MCH (RBC) [Entitic mass] 31.7 pg Normal 25-35 [facility] Comment on above: Performed By: #### Prateek G, CDP, CP, HCG, LIP ####[facility] Cue[address] [facility], [place] [phone] Director: Gamaliel Calderon DO MCHC (RBC) [Mass/Vol] 33.5 g/dL Normal 31-37 [facility] Comment on above: Performed By: #### Prateek G, CDP, CP, HCG, LIP ####[facility] Rms[address] [facility].[place], [place] [phone] Director: Gamaliel Calderon DO MCV (RBC) [Entitic vol] 94.5 fL Normal 78-102 [facility] Comment on above: Performed By: #### M G, CDP, CP, HCG, LIP ####[facility] [id number] [facility].[place], [place] [phone] Director: Gamaliel Calderon DO Monocytes (Bld) [#/Vol] 0.60 10*3/uL Normal 0.1-1.3 [facility] Comment on above: Performed By: #### M G, CDP, CP, HCG, LIP ####[facility] [address] [place] [address] Lab Director: Gamaliel Calderon DO Monocytes/100 WBC (Bld) 6 % Normal 2-8 [facility] Comment on above: Performed By: #### M G, CDP, CP, HCG, LIP ####[facility] [address], [place] [phone] Director: Gamaliel Calderon DO Neutrophil (Seg) 78 % High 34-64 [facility] Comment on above: Performed By: #### M G, CDP, CP, HCG, LIP ####[facility] [address], [place] [phone] Director: Gamaliel Calderon DO Platelet mean volume (Bld) [Entitic vol] 7.1 fL Normal 6.0-12.0 [facility] Comment on above: Performed By: #### Prateek G, CDP, CP, HCG, LIP ####[facility] [address] [facility].[place], [place] [phone] Director: Gamaliel Calderon DO Platelets (Bld) [#/Vol] 322 10*3/uL Normal 150-450 [facility] Comment on above: Performed By: #### M G, CDP, CP, HCG, LIP ####[facility] [address], [place] [phone] Director: Gamaliel Calderon DO RBC (Bld) [#/Vol] 4.21 10*6/uL Normal 4.0-5.2 [facility] Comment on above: Performed By: #### M G, CDP, CP, HCG, LIP ####[facility] [address], [place] [phone] Director: Gamaliel Calderon DO WBC (Bld) [#/Vol] 10.8 10*3/uL Normal 4.5-13.5 [facility] Comment on above: Performed By: #### M G, CDP, CP, HCG, LIP ####[facility] [address] [facility].[place], [place] [phone] Director: Gamaliel Calderon DO Abs.Imm.Granulocyte NOT REPORTED Normal 0.00-0.30 [facility] Comment on above: Performed By: #### M G, CDP, CP, HCG, LIP ####[facility] Feg[address] [facility] [place] [address] Lab Director: Gamaliel Calderon DO Auto Diff Performed NOT REPORTED Normal [facility] Comment on above: Performed By: #### M G, CDP, CP, HCG, LIP ####[facility] [id number] [place] [address].[place], [place] [phone] Director: Gamaliel Calderon DO Immature Granulocyte NOT REPORTED Normal 0 [facility] Comment on above: Performed By: #### M G, CDP, CP, HCG, LIP ####[facility] [address] [place], [place] [phone] Director: Gamaliel Calderon DO NRBC Automated NOT REPORTED Normal [facility] Comment on above: Performed By: #### M G, CDP, CP, HCG, LIP ####[facility] [address] [place] [address] Lab Director: Gamaliel Calderon DO Platelet Estimate NOT REPORTED Normal [facility] Comment on above: Performed By: #### M G, CDP, CP, HCG, LIP ####[facility] Wgk0769 [place], [place] [phone] Director: Gamaliel Calderon DO RBC morphology finding Nom (Bld) NOT REPORTED Normal [facility] Comment on above: Performed By: #### M G, CDP, CP, HCG, LIP ####[facility] [address] [place] [address] Lab Director: Gamaliel Calderon DO WBC Morphology NOT REPORTED Normal [facility] Comment on above: Performed By: #### M G, CDP, CP, HCG, LIP ####[facility] [address] [place] [address] Lab Director: Gamaliel Calderon DO CT ABDOMEN PELVIS W IV CONTR Gino 04-10-2020 CT ABDOMEN PELVIS W IV CONTRAST EXAMINATION: CT OF THE ABDOMEN AND PELVIS WITH CONTRAST 04/10/2020 3:23 pm TECHNIQUE: CT of the abdomen and pelvis was performed with the administration of intravenous contrast. Multiplanar reformatted images are provided for review. COMPARISON: None. HISTORY: ORDERING SYSTEM PROVIDED HISTORY: rlq pain, appendicitis TECHNOLOGIST PROVIDED HISTORY: rlq pain, appendicitis Reason for Exam: RLQ pain, pt denies any n/v/d/c Acuity: Acute Type of Exam: Initial Relevant Medical/Surgical History: no known surgeries to area of interest FINDINGS: Lower Chest: No acute abnormality in the included lung bases. Organs: Liver, spleen, pancreas, gallbladder,, adrenals and kidneys are unremarkable. GI/Bowel: Increased colonic stool is noted with constipated appearance. No free fluid, free air or bowel obstruction is noted. Scattered fluid-filled bowel loops are present which may be related to enteritis. Appendix is visualized. Appendix is normal in diameter without evidence of appendicitis, best visualized on coronal reconstructed images. Pelvis: Uterus is deviated to the right of midline. Multiple adnexal hypodensities are noted, largest of 15 mm in the right side, consistent with ovarian cysts. No further ultrasound follow-up is advised. Bladder is unremarkable. No free pelvic fluid, pelvic or inguinal adenopathy is seen. Peritoneum/Retroperit oneum: No aortic aneurysm, retroperitoneal or mesenteric adenopathy is seen. Bones/Soft Tissues: No acute osseous or soft tissue abnormality. IMPRESSION: Scattered fluid-filled small bowel loops favoring enteritis. No small bowel obstruction, gallstones, or appendicitis. No urinary obstruction. Hypodensities in the adnexal areas compatible with cysts. RECOMMENDATIONS: No further ultrasound evaluation for appearance of ovarian cysts of less than 2 cm. Interpreted by: Radhika Sloan MD Signed by: Radhika Sloan MD 04/10/20 Final result Normal [facility] CT ABDOMEN PELVIS W IV CONTR AST Additional Contrast? Noneon 04-10-2020 [place], Mhpn Incoming Radiant Results From [place]acs - 04/10/2020 3:44 PM EST EXAMINATION: CT OF THE ABDOMEN AND PELVIS WITH CONTRAST 04/10/2020 3:23 pm TECHNIQUE: CT of the abdomen and pelvis was performed with the administration of intravenous contrast. Multiplanar reformatted images are provided for review. COMPARISON: None. HISTORY: ORDERING SYSTEM PROVIDED HISTORY: rlq pain, appendicitis TECHNOLOGIST PROVIDED HISTORY: rlq pain, appendicitis Reason for Exam: RLQ pain, pt denies any n/v/d/c Acuity: Acute Type of Exam: Initial Relevant Medical/Surgical History: no known surgeries to area of interest FINDINGS: Lower Chest: No acute abnormality in the included lung bases. Organs: Liver, spleen, pancreas, gallbladder,, adrenals and kidneys are unremarkable. GI/Bowel: Increased colonic stool is noted with constipated appearance. No free fluid, free air or bowel obstruction is noted. Scattered fluid-filled bowel loops are present which may be related to enteritis. Appendix is visualized. Appendix is normal in diameter without evidence of appendicitis, best visualized on coronal reconstructed images. Pelvis: Uterus is deviated to the right of midline. Multiple adnexal hypodensities are noted, largest of 15 mm in the right side, consistent with ovarian cysts. No further ultrasound follow-up is advised. Bladder is unremarkable. No free pelvic fluid, pelvic or inguinal adenopathy is seen. Peritoneum/Retroperit oneum: No aortic aneurysm, retroperitoneal or mesenteric adenopathy is seen. Bones/Soft Tissues: No acute osseous or soft tissue abnormality. IMPRESSION: Scattered fluid-filled small bowel loops favoring enteritis. No small bowel obstruction, gallstones, or appendicitis. No urinary obstruction. Hypodensities in the adnexal areas compatible with cysts. RECOMMENDATIONS: No further ultrasound evaluation for appearance of ovarian cysts of less than 2 cm. [facility] [place], [place] EXAMINATION: CT OF THE ABDOMEN AND PELVIS WITH CONTRAST 04/10/2020 3:23 pm TECHNIQUE: CT of the abdomen and pelvis was performed with the administration of intravenous contrast. Multiplanar reformatted images are provided for review. COMPARISON: None. HISTORY: ORDERING SYSTEM PROVIDED HISTORY: rlq pain, appendicitis TECHNOLOGIST PROVIDED HISTORY: rlq pain, appendicitis Reason for Exam: RLQ pain, pt denies any n/v/d/c Acuity: Acute Type of Exam: Initial Relevant Medical/Surgical History: no known surgeries to area of interest FINDINGS: Lower Chest: No acute abnormality in the included lung bases. Organs: Liver, spleen, pancreas, gallbladder,, adrenals and kidneys are unremarkable. GI/Bowel: Increased colonic stool is noted with constipated appearance. No free fluid, free air or bowel obstruction is noted. Scattered fluid-filled bowel loops are present which may be related to enteritis. Appendix is visualized. Appendix is normal in diameter without evidence of appendicitis, best visualized on coronal reconstructed images. Pelvis: Uterus is deviated to the right of midline. Multiple adnexal hypodensities are noted, largest of 15 mm in the right side, consistent with ovarian cysts. No further ultrasound follow-up is advised. Bladder is unremarkable. No free pelvic fluid, pelvic or inguinal adenopathy is seen. Peritoneum/Retroperit oneum: No aortic aneurysm, retroperitoneal or mesenteric adenopathy is seen. Bones/Soft Tissues: No acute osseous or soft tissue abnormality. [place] Scattered fluid-filled small bowel loops favoring enteritis. No small bowel obstruction, gallstones, or appendicitis. No urinary obstruction. Hypodensities in the adnexal areas compatible with cysts. RECOMMENDATIONS: No further ultrasound evaluation for appearance of ovarian cysts of less than 2 cm. [place], [place] Comp Metabolic Profon 2020 (cont.) Normal [facility] Comment on above: Result Comment: Aver age GFR for <20 years old not available. Chronic Kidney Disease: <60 mL/min/1.73sq m Kidney failure: <15 mL/min/1.73sq m eGFR calculated using average adult body mass. Additional eGFR calculator available at: http://www.[employer].com/multiple_crcl_2011.htm Performed By: #### M G, CDP, CP, HCG, LIP ####[facility] [id number] [place] [address] Lab Director: Fanelly, Gamaliel, DO Albumin [Mass/Vol] 4.1 g/dL Normal 3.2-4.5 [facility] Comment on above: Performed By: #### M G, CDP, CP, HCG, LIP ####[facility] [address] [place] [address] Lab Director: Gamaliel Calderon DO Alkaline Phos 77 U/L Normal 47-119 [facility] Comment on above: Performed By: #### M G, CDP, CP, HCG, LIP ####[facility] [address], [place] [phone] Director: Gamaliel Calderon DO ALT [Catalytic activity/Vol] 10 U/L Normal 5-33 [facility] Comment on above: Performed By: #### M G, CDP, CP, HCG, LIP ####[facility] [address], [place] [phone] Director: Gamaliel Calderon DO Anion gap [Moles/Vol] 9 mmol/L Normal 9-17 [facility] Comment on above: Performed By: #### M G, CDP, CP, HCG, LIP ####[facility] [address], [place] [phone] Director: Gamaliel Calderon DO AST [Catalytic activity/Vol] 14 U/L Normal <32 [facility] Comment on above: Performed By: #### M G, CDP, CP, HCG, LIP ####[facility] [address], [place] [phone] Director: Gamaliel Calderon DO Bilirubin [Mass/Vol] 0.54 mg/dL Normal 0.3-1.2 [facility] Comment on above: Performed By: #### M G, CDP, CP, HCG, LIP ####[facility] [address] [address] lab Director: Gamaliel Calderon DO Calcium [Mass/Vol] 9.2 mg/dL Normal 8.4-10.2 [facility] Comment on above: Performed By: #### M G, CDP, CP, HCG, LIP ####[facility] [address] [place] [address] lab Director: Gamaliel Calderon DO Chloride [Moles/Vol] 105 mmol/L Normal 98-107 [facility] Comment on above: Performed By: #### M G, CDP, CP, HCG, LIP ####[facility] [address]ex[address] [facility] [place] [address] lab Director: Gamaliel Calderon DO CO2 [Moles/Vol] 25 mmol/L Normal 20-31 [facility] Comment on above: Performed By: #### M G, CDP, CP, HCG, LIP ####[facility] Vhc[address] [facility] [place] [address] lab Director: Gamaliel Calderon DO Creatinine [Mass/Vol] 0.54 mg/dL Normal 0.50-0.90 [facility] Comment on above: Performed By: #### M G, CDP, CP, HCG, LIP ####[facility] [address] [facility] [place] [address] Lab Director: Gamaliel Calderon DO GFR,non Amer Pediatric GFR requires additional information. Refer to NKDEP website for Normal >60 [facility] Comment on above: Result Comment: calc ulator. Performed By: #### M G, CDP, CP, HCG, LIP ####[facility] [address] [facility] [place] [address] lab Director: Gamaliel Calderon DO Glucose [Mass/Vol] 98 mg/dL Normal 60-100 [facility] Comment on above: Performed By: #### M G, CDP, CP, HCG, LIP ####[facility] [address] [place] [address] Lab Director: Gamaliel Calderon DO Potassium [Moles/Vol] 4.2 mmol/L Normal 3.6-4.9 [facility] Comment on above: Performed By: #### M G, CDP, CP, HCG, LIP ####[facility] [address], [place] [phone] Director: Gamaliel Calderon DO Protein [Mass/Vol] 6.8 g/dL Normal 6.0-8.0 [facility] Comment on above: Performed By: #### M G, CDP, CP, HCG, LIP ####[facility] [id number], [place] [phone] Director: Gamaliel Calderon DO Sodium [Moles/Vol] 139 mmol/L Normal 135-144 [facility] Comment on above: Performed By: #### M G, CDP, CP, HCG, LIP ####[facility] [address] [place] [address] Lab Director: Gamaliel Calderon DO Urea nitrogen [Mass/Vol] 10 mg/dL Normal 5-18 [facility] Comment on above: Performed By: #### M G, CDP, CP, HCG, LIP ####[facility] [address] [facility] [place] [address] Lab Director: Gamaliel Calderon DO Albumin/Glob Ratio NOT REPORTED Normal 1.0-2.5 [facility] Comment on above: Performed By: #### M G, CDP, CP, HCG, LIP ####[facility] [address], [place] [phone] Director: Gamaliel Calderon DO BUN/CRE Ratio NOT REPORTED Normal 9-20 [facility] Comment on above: Performed By: #### M G, CDP, CP, HCG, LIP ####[facility] [address] [facility] [place] [address] Lab Director: Gamaliel Calderon DO GFR, Amer NOT REPORTED Normal >60 [facility] Comment on above: Performed By: #### M G, CDP, CP, HCG, LIP ####[facility] Gad[address] [facility] [place] [address] Lab Director: Gamaliel Calderon DO Staging: NOT REPORTED Normal [facility] Comment on above: Performed By: #### M G, CDP, CP, HCG, LIP ####[facility] Eet[address] [facility] [place] [address] Lab Director: Gamaliel Calderon DO Comprehensive Metabolic Pane tommy 04-10-2020 Albumin [Mass/Vol] 4.1 g/dL 3.2 - 4.5 g/dL [place], [place] Albumin/Globulin [Mass ratio] NOT REPORTED [place] ALP [Catalytic activity/Vol] 77 U/L 47 - 119 U/L [place] ALT [Catalytic activity/Vol] 10 U/L 5 - 33 U/L [place] Anion gap [Moles/Vol] 9 mmol/L 9 - 17 mmol/L [place] AST [Catalytic activity/Vol] 14 U/L <32 [place] Bilirubin Ql (U) 0.54 mg/dL 0.3 - 1.2 mg/dL [place] Bun/Cre Ratio NOT REPORTED [place], [place] Calcium [Mass/Vol] 9.2 mg/dL 8.4 - 10.2 mg/dL [place] Chloride [Moles/Vol] 105 mmol/L 98 - 107 mmol/L [place] CO2 [Moles/Vol] 25 mmol/L 20 - 31 mmol/L [place] Creatinine [Mass/Vol] 0.54 mg/dL 0.5 - 0.9 mg/dL [place] GFR NOT REPORTED >60 mL/min [place] GFR Non- Pediatric GFR requires additional information. Refer to NKDEP website for calculator. >60 mL/min [place] GFR/1.73 sq M predicted among non-blacks MDRD (S/P/Bld) [Vol rate/Area] [place] Comment on above: Average GFR for <20 years old not available. Chronic Kidney Disease: <60 mL/min/1.73sq m Kidney failure: <15 mL/min/1.73sq m eGFR calculated using average adult body mass. Additional eGFR calculator available at: http://www.[employer]/multiple_crcl_2012.htm GFR/1.73 sq M predicted among non-blacks MDRD (S/P/Bld) [Vol rate/Area] NOT REPORTED [place] Glucose [Mass/Vol] 98 mg/dL 60 - 100 mg/dL [place] Potassium [Moles/Vol] 4.2 mmol/L 3.6 - 4.9 mmol/L [place] Protein [Mass/Vol] 6.8 g/dL 6 - 8 g/dL [place] Sodium [Moles/Vol] 139 mmol/L 135 - 144 mmol/L [place] Urea nitrogen [Mass/Vol] 10 mg/dL 5 - 18 mg/dL [place] HCG Qualitative, Serumon hCG Qual Negative NEGATIVE [place] Comment on above: Specimens with hCG l evels near the threshold of the test (25 mIU/mL) may give a negative or indeterminate result. In such cases, another test should be performed with a new specimen in 48-72 hours. If early is suspected clinically in this setting, correlation with quantitative serum b-hCG level is suggested. HCG Screen, Bloodon 04-10-19 HCG Screen, Blood Negative Normal [facility] Comment on above: Result Comment: Spec imens with hCG levels near the threshold of the test (25 mIU/mL) may give a negative or indeterminate result. In such cases, another test should be performed with a new specimen in 48-72 hours. If early is suspected clinically in this setting, correlation with quantitative serum b-hCG level is suggested. Performed By: #### M G, CDP, CP, HCG, LIP ####[facility] [address] [facility] [place] [address] Lab Director: Gamaliel Cadleron DO Lipaseon 04-10-2020 Lipase [Catalytic activity/Vol] 16 U/L Normal 13-60 [facility] Comment on above: Performed By: #### M G, CDP, CP, HCG, LIP ####[facility] [id number] [facility] [place] [address] Lab Director: Gamaliel Calderon DO Lipase [Catalytic activity/Vol] 16 U/L 13 - 60 U/L [place] Magnesiumon 04-10-2020 Magnesium [Mass/Vol] 2.0 mg/dL Normal 1.7-2.2 [facility] Comment on above: Performed By: #### M G, CDP, CP, HCG, LIP ####[facility] K[address] [facility] [place] [address] Lab Director: Gamaliel Calderon DO Magnesium [Mass/Vol] 2.0 mg/dL 1.7 - 2.2 mg/dL [place] Microscopic Urinalysison Amorphous, UA 1+ Abnormal None [place] Bacteria, UA FEW Abnormal None [facility], [place] Casts UA NOT REPORTED /LPF [place] Crystals, UA NOT REPORTED None /HPF [place], [place] Epithelial Cells UA 0 TO 2 /HPF [place], [place] Interpretation and review of laboratory results Abnormal [place], [place] Mucus, UA NOT REPORTED None [place], [place] Other Observations UA NOT REPORTED NOT REQ. [place], [place] RBC (U) [#/Vol] 20 TO 50 /HPF [place], [place] Renal Epithelial, UA NOT REPORTED 0 /HPF [place], [place] Trichomonas, UA NOT REPORTED None [facility] [place] WBC, UA 10 TO 20 /HPF [place], [place] Yeast, UA NOT REPORTED None [facility], [place] Otheron 04-10-2020 Direct Exam Negative [place], [place] Immature granulocytes (Bld) [#/Vol] NOT REPORTED [place] Urinalysison 04-10-2020 Bilirubin Urine Negative NEGATIVE [facility] [place] Color, UA YELLOW YELLOW [place], [place] Glucose, Ur Negative NEGATIVE [place] Interpretation and review of laboratory results Abnormal [place], [place] Ketones Ql (U) Negative NEGATIVE [place], [place] Leukocyte esterase Test strip Ql (U) MOD Abnormal NEGATIVE [place], [place] Nitrite, Urine Positive Abnormal NEGATIVE [place], [place] pH, UA 7.0 [place], [place] Protein (U) [Mass/Vol] 1+ Abnormal NEGATIVE [place], [place] Specific Manti, UA 1.018 [place], [place] Turbidity UA CLEAR CLEAR [place] Urinalysis Comments NOT REPORTED [place], [place] Urine Hgb LARGE Abnormal NEGATIVE [place], [place] Urobilinogen, Urine Normal Normal [place], [place] Urinalysis, Routineon 2020 Acetoacetic Acid,Ur Negative Normal NEG [facility] Comment on above: Performed By: #### CHASE Delaney #### [facility] [address] [place] [address] [phone] Metal Trimmer: Gamaliel Calderon DO Bilirubin, SemiQt,Ur Negative Normal NEG [facility] Comment on above: Performed By: #### CHASE Delaney #### [facility] [address] [place], [place] [phone] Metal Trimmer: Gamaliel Calderon DO Color (U) YELLOW Normal YEL [facility] Comment on above: Performed By: #### CHASE Delaney #### [facility] [address] [place] [address] Metal Trimmer: Gamaliel Calderon DO Glucose Ql (U) Negative Normal NEG [facility] Comment on above: Performed By: #### CHASE Delaney #### [facility] [address] [place] [address] Metal Trimmer: Gamaliel Calderon DO Hemoglobin, Ur LARGE Abnormal NEG [facility] Comment on above: Performed By: #### CHASE Delaney #### [facility] [address] [place] [address] 87[address] Metal Trimmer: Gamaliel Calderon DO Leukocyte esterase Test strip Ql (U) MOD Abnormal NEG [facility] Comment on above: Performed By: #### CHASE Delaney #### [facility] [address] [place] [address] 9[address] Metal Trimmer: Gamaliel Calderon DO Nitrite,Ur Positive Abnormal NEG [facility] Comment on above: Performed By: #### CHASE Delaney #### [facility] [address] [place] [address] 75[address] Metal Trimmer: Gamaliel Calderon DO PH,Ur 7.0 Normal 5.0-8.0 [facility] Comment on above: Performed By: #### CHASE Delaney #### [facility] [address] [place] [address] 324[address] Metal Trimmer: Gamaliel Calderon DO Protein Ql (U) 1+ Abnormal NEG [facility] Comment on above: Performed By: #### CHASE Delaney #### [facility] [address] [place] [address] 27[address] Metal Trimmer: Gamaliel Calderon DO Spec. Manti,Ur 1.018 Normal 1.000-1.030 [facility] Comment on above: Performed By: #### CHASE Delaney #### [facility] [address] [facility] [place] [address] Metal Trimmer: Gamaliel Calderon DO Turbidity CLEAR Normal CLEAR [facility] Comment on above: Performed By: #### CHASE Delaney #### [facility] [address] [place] [address] Metal Trimmer: Gamaliel Calderon DO Urobilinogen,Ur Normal Normal NORM [facility] Comment on above: Performed By: #### CHASE Delaney #### [facility] [address] [place] [address] Metal Trimmer: Gamaliel Calderon DO Comment NOT REPORTED Normal [facility] Comment on above: Performed By: #### CHASE Delaney #### [facility] [address] [place] [address] Metal Trimmer: Gamaliel Calderon DO Urinalysis,Microon 1 ----- Normal [facility] Comment on above: Performed By: #### CHASE Delaney ####[facility] [id number] [place], [place] [phone] Director: Gamaliel Calderon DO Amorphous sediment LM Ql (Urine sed) 1+ Abnormal NONE [facility] Comment on above: Performed By: #### CHASE Delaney ####[facility] [id number] [place] [address] Lab Director: Gamaliel Caldeorn DO Bacteria FEW Abnormal NONE [facility] Comment on above: Performed By: #### CHASE Delaney ####[facility] [id number] [place] [address] Lab Director: Gamaliel Calderon DO Epithelial cells LM Ql (Urine sed) 0 TO 2 Normal [facility] Comment on above: Performed By: #### U CHASE Diez ####[facility] [id number] [facility] [place] [address] Lab Director: Gamaliel Calderon DO Urine RBC's 20 TO 50 Normal [facility] Comment on above: Performed By: #### CHASE Delaney ####[facility] [id number] [facility], [place] [phone] Director: Gamaliel Calderon DO Urine WBC's 10 TO 20 Normal [facility] Comment on above: Performed By: #### CHASE Delaney ####[facility] [id number] [place] [address].[place], [place] [phone] Director: Gamaliel Calderon DO Casts NOT REPORTED Normal [facility] Comment on above: Performed By: #### U CHASE Diez ####[facility] [id number] [facility], [place]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 disease) Vaginal discharge 1 Occurrences starting 09/14/2020 until 09/14/2020 [facility] [employer] Work Phone: Comment on above: 1 Occurrences starti ng 09/14/2020 until 09/14/2020 End: 04-14-2020 Culture, Urine Culture, Urine Microbiology Routine Abdominal pain, suprapubic 1 Occurrences starting 04/14/2020 until 04/14/2020 [place], [place] Comment on above: 1 Occurrences starti ng 04/14/2020 until 04/14/2020 Culture, Urine Culture, Urine Microbiology Routine Abdominal pain, suprapubic 04/14/2020 8:53 PM [place], [place] End: 03-31-2020 Strep A DNA probe, amplification Strep A DNA probe, amplification Lab Routine Once for 1 Occurrences starting 03/31/2020 until 03/31/2020 [place] Comment on above: Once for 1 Occurrenc es starting 03/31/2020 until 03/31/2020 Strep A DNA probe, amplification Strep A DNA probe, amplification Lab Routine 03/31/2020 12:18 PM [place] End: 09-14-2020 VAGINITIS DNA PROBE VAGINITIS DNA PROBE Microbiology Routine Screen for STD (sexually transmitted disease) Vaginal discharge 1 Occurrences starting 09/14/2020 until 09/14/2020 [facility] [employer] Phone: Comment on above: 1 Occurrences starti ng 09/14/2020 until 09/14/2020 VAGINITIS DNA PROBE VAGINITIS DN A PROBE Microbiology Routine Screen for STD (sexually transmitted disease) Vaginal discharge 09/14/2020 12:03 AM EDT [facility] Work Phone: Immunizations Immunization Date Immunization Notes Care Provider Fa [facility] 03-04-2021 influenza, injectabl e, quadrivalent, preservative free Roland Kraus MD Work Phone: [facility] Work Phone: 04-14-2020 meningococcal B vacc ine, recombinant, OMV, adjuvanted [place], [place] 04-14-2020 meningococcal oligosaccharide (groups A, C, Y and W-135) diphtheria toxoid conjugate vaccine (MCV4O) [facility] 10-23-2017 hepatitis A vaccine, pediatric/adolescent dosage, 2 dose schedule [facility] 03-05-2017 influenza, injectabl e, quadrivalent, preservative free [facility] 12-26-2016 hepatitis A vaccine, pediatric/adolescent dosage, 2 dose schedule [place], [place] 12-26-2016 Human Papillomavirus 9-valent vaccine [facility] 05-31-2016 human papilloma viru s vaccine, quadrivalent [place], [place] 05-31-2016 meningococcal polysaccharide (groups A, C, Y and W-135) diphtheria toxoid conjugate vaccine (MCV4P) [place], [place] 05-31-2016 tetanus toxoid, redu ginna diphtheria toxoid, and acellular pertussis vaccine, adsorbed [place], [place] 05-31-2016 meningococcal vaccin e of unknown formulation and unknown serogroups [facility], [place] 11-26-2008 diphtheria, tetanus toxoids and acellular pertussis vaccine [facility], [place] 11-26-2008 measles, mumps and rubella virus vaccine [facility], [place] 11-26-2008 poliovirus vaccine, inactivated [facility], [place] 11-26-2008 varicella virus vaccine [facility], [place] 08-09-2006 diphtheria, tetanus toxoids and acellular pertussis vaccine [facility], [place] 12-05-2005 diphtheria, tetanus toxoids and acellular pertussis vaccine [facility], [place] 12-05-2005 Hepatitis B Ped/Adol (Recombivax HB) [facility], [place] 12-05-2005 measles, mumps and rubella virus vaccine [facility], [place] 12-05-2005 poliovirus vaccine, inactivated [facility], [place] 12-05-2005 varicella virus vaccine [facility], [place] 05-24-2004 diphtheria, tetanus toxoids and acellular pertussis vaccine [facility], [place] 05-24-2004 Hepatitis B Ped/Adol (Recombivax HB) [facility], [place] 05-24-2004 poliovirus vaccine, inactivated [facility], [place] 2003 diphtheria, tetanus toxoids and acellular pertussis vaccine [facility] 2003 poliovirus vaccine, inactivated [facility], [place] 2003 Hepatitis B Ped/Adol (Recombivax HB) [facility], [place] Payers Date Payer Category Payer Unknown [employer] [place] MEDICA[place] xxxxxxxxxxx 2019-Present [phone] CLAIMS DEPARTMENT [address] [place] [address] xxxxxxxxxxx [id number] 2003 Unknown [id number] 2003 Unknown [id number] 2003 Unknown [id number] [id number] 2003 Unknown [id number] [id number] 2003 Unknown [id number] [id number] 2003 Unknown [id number] [id number] 2003 Unknown [id number] [id number] 2003 Unknown [id number] [id number] 1984 Unknown [id number] 2.16.840.1.262765.3.579.2.647 1982 Unknown [id number] [id number] 1982 Unknown [id number] [id number] 1982 Unknown [id number] [id number] 1982 Unknown [id number] [id number] 1982 Unknown [id number] [id number] 1982 Unknown [id number] [id number] 1982 Unknown [id number] [id number] 1959 Unknown [id number]. [id number] 1959 Unknown [id number] Social History Date Type Detail Facility Start: 08-19-2019 End: 01-16-2022 Tobacco smoking status NHIS Never smoker [facility] Start: 08-19-2019 End: 01-16-2022 Alcohol intake Current non-drinker of alcohol (finding) [facility] [place] [place] Start: 2003 [facility]igned At [facility] [place] [place] Exposure to SARS-CoV -2 (event) Unable to assess [facility] [employer] [employer] [place] Start: 03-31-2020 End: 01-16-2022 Tobacco use and exposure Never used [facility] [place] Exposure to SARS-CoV -2 (event) Not sure [facility] [employer] [place] Start: 04-29-2020 History SDOH Financial 5 [facility] [employer] [facility] [place] Start: 04-29-2020 History SDOH Food Worry 1 [facility] [place] Start: 04-29-2020 History SDOH Transpo rt Med 2 [facility] [place] History of tobacco use Passive smoker [facility] Work Phone: Tobacco smoking status No Smokin g Status Entered [facility] Sex Assigned At Female [facility] Functional Status Date Assessment Result Facility 09-27-2022 Functional Status N/A [facility] Discharge instructions 09-27-2022 Note Date & Type Note Facility 09-27-2022 Hospital Discharg e instructions Patient Education 09/27/2022 11:39:36 Contact Dermatitis, [id number] Contact Dermatitis Dermatitis is redness, soreness, and swelling (inflammation) of the skin. Contact dermatitis is a reaction to something that touches the skin. There are two types of contact dermatitis: Irritant contact dermatitis. This happens when something bothers (irritates) your skin, like soap. Allergic contact dermatitis. This is caused when you are exposed to something that you are allergic to, such as poison joaquni. What are the causes? Common causes of irritant contact dermatitis include: ?Makeup. ?Soaps. ?Detergents. ?Bleaches. ?Acids. ?Metals, such as nickel. Common causes of allergic contact dermatitis include: ?Plants. ?Chemicals. ?Jewelry. ?Latex. ?Medicines. ?Preservatives in products, such as clothing. What increases the risk? Having a job that exposes you to things that bother your skin. Having asthma or eczema. What are the signs or symptoms? Symptoms may happen anywhere the irritant has touched your skin. Symptoms include: Dry or flaky skin. Redness. Cracks. Itching. Pain or a burning feeling. Blisters. Blood or clear fluid draining from skin cracks. With allergic contact dermatitis, swelling may occur. This may happen in places such as the eyelids, mouth, or genitals. How is this treated? This condition is treated by checking for the cause of the reaction and protecting your skin. Treatment may also include: ?Steroid creams, ointments, or medicines. ?Antibiotic medicines or other ointments, if you have a skin infection. ?Lotion or medicines to help with itching. ?A bandage (dressing). Follow these instructions at home: Skin care Moisturize your skin as needed. Put cool cloths on your skin. Put a baking soda paste on your skin. Stir water into baking soda until it looks like a paste. Do not scratch your skin. Avoid having things rub up against your skin. Avoid the use of soaps, perfumes, and dyes. Medicines Take or apply [id number] and prescription medicines only as told by your doctor. If you were prescribed an antibiotic medicine, take or apply it as told by your doctor. Do not stop using it even if your condition starts to get better. Bathing Take a bath with: ?Epsom salts. ?Baking soda. ?Colloidal oatmeal. Bathe less often. Bathe in warm water. Avoid using hot water. Bandage care If you were given a bandage, change it as told by your doctor. Wash your hands with soap and water before and after you change your bandage. If soap and water are not available, use hand rotary kiln operator. General instructions Avoid the things that caused your reaction. If you do not know what caused it, keep a journal. Write down: ?What you eat. ?What skin products you use. ?What you drink. ?What you wear in the area that has symptoms. This includes jewelry. Check the affected areas every day for signs of infection. Check for: ?More redness, swelling, or pain. ?More fluid or blood. ?Warmth. ?Pus or a bad smell. Keep all follow-up visits as told by your doctor. This is important. Contact a doctor if: You do not get better with treatment. Your condition gets worse. You have signs of infection, such as: ?More swelling. ?Tenderness. ?More redness. ?Soreness. ?Warmth. You have a fever. You have new symptoms. Get help right away if: You have a very bad headache. You have neck pain. Your neck is stiff. You throw up (vomit). You feel very sleepy. You see red streaks coming from the area. Your bone or joint near the area hurts after the skin has healed. The area turns darker. You have trouble breathing. Summary Dermatitis is redness, soreness, and swelling of the skin. Symptoms may occur where the irritant has touched you. Treatment may include medicines and skin care. If you do not know what caused your reaction, keep a journal. Contact a doctor if your condition gets worse or you have signs of infection. This information is not intended to replace advice given to you by your health care provider. Make sure you discuss any questions you have with your health care provider. Document Revised: 01/09/2022 Document Reviewed: 01/09/2022 [employer] Patient Education 2022 [employer]. Follow Up Care 09/27/2022 11:01:54 With:Anaid LUTZ Address: [address] [place], [place] [id number]- Business (1) When:09/30/2022 11:28:16 Comments:Follow-up with your primary care provider in 3 to 5 days. If symptoms worsen, do not improve, or new symptoms arise please report back to emergency department for further evaluation. [facility] Evaluation + Plan note Note Date & Type Note Facility Evaluation + Plan note No data available for this section [facility] Evaluation note Note Date & Type Note Facility Evaluation note Diagnosis Screen for STD (sexually transmitted disease) Screening examination for venereal disease Vaginal discharge Leukorrhea, not specified as infective documented in this encounter [employer] Phone: Evaluation note Note Date & Type Note Facility Evaluation note Diagnosis Acute vaginitis Vaginitis and vulvovaginitis, unspecified documented in this encounter LETI SERRANO [employer] Phone: Progress note Note Date & Type Note Facility Progress note No data available for this section [facility] Assessments Diagnosis Unprotected sexual intercourse Problems related to high-risk sexual behavior Diagnosis Urticaria- Primary Urticaria, unspecified Viral URI with cough Acute upper respiratory infections of unspecified site Diagnosis Right lower quadrant abdominal pain- Primary Abdominal pain, right lower quadrant Acute cystitis with hematuria Acute cystitis Diagnosis Abdominal pain, suprapubic Abdominal pain, other specified site Diagnosis Well adolescent visit Routine or child health check Diagnosis Abdominal pain, suprapubic Abdominal pain, other specified site Cyst of ovary, unspecified laterality Advance Directives No Advanced Directives Records FoundDocuments on File Type Date Recorded Patient Tool And Die Maker Level Five Expl anation Advance Directives and Living Will Power of Interior Surface Insulation Worker Documents on File Type Date Recorded Patient Tool And Die Maker Level Five Expl anation ACP-Advance Directive ACP-Power of Interior Surface Insulation Worker Documents on File Type Date Recorded Patient Tool And Die Maker Level Five Expl anation ACP-Advance Directive ACP-Power of Interior Surface Insulation Worker Healthcare Agents on File Name Relationship Healthcare Agent Relationshi p Communication Sonia Freeman Parent Primary Decision Maker Discharge Instructions * Instructions* Ilene Tapia PA-C - 03/31/2020 If you develop fever, worsening abd pain, right lower abdominal pain, vaginal bleeding/ discharge, chest pain, vomiting please return to ED. Recommend outpatient COVID test. * Attachments The following attachments cannot be sent through Care Everywhere. * URI (Upper Respiratory Infection): Pediatric (Estonian) * Urticaria: Teen (Estonian) documented in this encounter* Attachments The following attachments cannot be sent through Care Everywhere. * UTI (Urinary Tract Infection): Female: Teen (Estonian) * Abdominal Pain: Pediatric (Estonian) documented in this encounter Reason for Referral Status Reason Specialty Diagnoses / Procedures Referre d By Contact Referred To Contact Closed Radiology Diagnoses Abdominal pain, suprapubic Cyst of ovary, unspecified laterality Procedures US PELVIS COMPLETE US PELVIS LIMITED Rosalinda Rodrigues, VISUAL MERCHANDISING MANAGER - TESTER/LIFT TRUCKER [address] [place] [address] Summary Purpose Family History No Family History Records FoundNo Family History Records FoundNo Family History Records FoundNo Family History Records FoundNo Family History Records FoundNo Family History Records Found Additional Source Comments Reason for Visit (unrecogniz ed section and content) Reason Comments Abdominal Pain Cough Pharyngitis Urticaria Reason Comments Abdominal Pain Status Reason Specialty Diagnoses / Procedures Referre d By Contact Referred To Contact Closed Radiology Diagnoses Abdominal pain, suprapubic Cyst of ovary, unspecified laterality Procedures US PELVIS COMPLETE US PELVIS LIMITED Rosalinda Rodrigues, VISUAL MERCHANDISING MANAGER - TESTER/LIFT TRUCKER [address] [place] [address] Ordered Prescriptions (unrec ognized section and content) Prescription Sig Dispensed Refills Start Date End Da te ibuprofen (IBU) 400 MG tablet Take 1 tablet by mouth every 6 hours as needed for Pain 20 tablet 0 03/31/2020 ondansetron (ZOFRAN ODT) [address] 1 tablet under the tongue every 8 hours as needed for Nausea or Vomiting 10 tablet 0 03/31/2020 Prescription Sig Dispensed Refills Start Date End Da te ibuprofen (IBU) 400 MG tablet Take 1 tablet by mouth every 6 hours as needed for Pain 30 tablet 0 04/10/2020 acetaminophen (TYLENOL) 500 MG tablet Take 1 tablet by mouth every 6 hours as needed for Pain 60 tablet 0 04/10/2020 cephALEXin (KEFLEX) 500 MG capsule Take 1 capsule by mouth 3 times daily for 5 days 15 capsule 0 04/10/2020 04/15/2020 INFORMATION SOURCE (unrecogn ized section and content) DATE CREATED AUTHOR 06/17/2020 [facility] DATE CREATED AUTHOR AUTHOR'S ORGANIZ ATION 12/08/2020 [facility] DATE CREATED AUTHOR AUTHOR'S ORGANIZ ATION 01/18/2022 [facility] DATE CREATED AUTHOR AUTHOR'S ORGANIZ ATION 07/15/2022 [facility] DATE CREATED AUTHOR AUTHOR'S ORGANIZ ATION 10/08/2022 [facility] DATE CREATED AUTHOR AUTHOR'S ORGANIZ ATION 06/12/[address] [facility] EPIC Care Teams (unrecognized sec tion and content) Dip Stand Loader Relationship Specialty Start Date End Date Roland Kraus MD [address] [place] [address] PCP - General Pediatrics 03/04/21 FOR RECORDS PERTAINING TO PATIENTS WHO ARE OR HAVE BEEN ENROLLED IN A CHEMICAL DEPENDENCY/SUBSTANCEABUSE PROGRAM, SOME INFORMATION MAY BE OMITTED. This clinical summary was aggregated from multiple sources. Caution should be exercised in using it in the provision of clinical care. This summary normalizes information from multiple sources, and as a consequence, information in this document may materially change the coding, format and clinical context of patient data. In addition, data may be omitted in some cases. CLINICAL DECISIONS SHOULD BE BASED ON THE PRIMARY CLINICAL RECORDS. [employer] [facility]. provides no warranty or guarantee of the accuracy or completeness of information in this document.
== END 2023-07-02 08:10 | disposition home or self-care (01) ==
LOC: NOMS 08:10
PROVIDERS: Visit Provider Physician Assistant
DX: Z36.89 Encounter for other specified antenatal screening (principal); Z3A.22 22 weeks gestation of pregnancy
CPT/HCPCS: 76805; 76817

== ENCOUNTER 2023-08-20 09:11 | Outpatient (OUT) | payer OTHER, SELFPAY ==
--- NOTE | 2023-08-20 09:14 | US_ITS ---
[address] [address] Patient Name: YVON SYED MRN: [id number] date: 2005 Sex: F Assigned Patient Location: [facility] Current Patient Location: [facility] Accession/Order Number: [id number] Exam Date: 08/20/2023 09:17 Report Date: 08/20/2023 10:57 At the request of: PAPI LESTER Procedure: US OB placenta EXAM: US OB placenta HISTORY: MARGINAL PLACENTA PREVIA COMPARISON: None. TECHNIQUE: Transabdominal and transvaginal FINDINGS: position: Cephalic presentation, longitudinal lie Placenta: Anterior. No intraplacental or retroplacental echogenic abnormality The placental edge is 7.1 cm from the internal os Heart rate: 144 beats minute Cervix: 5 cm, closed US/US OB placenta IMPRESSION: Placental edge is 7.1 cm from the internal os Electronically authenticated by: CHARLES BONDS Date: 08/20/2023 10:57
== END 2023-08-20 09:12 | disposition home or self-care (01) ==
LOC: NOMS 09:11
PROVIDERS: Visit Provider Obstetrics & Gynecology
DX: O44.20 Partial placenta previa NOS or without hemorrhage, unspecified trimester (principal); Z13.1 Encounter for screening for diabetes mellitus
CPT/HCPCS: 36415; 76815; 82950; 85025

== ENCOUNTER 2023-08-20 10:59 | Outpatient (OUT) | payer OTHER, SELFPAY ==
--- OUTSIDE RECORDS SUMMARY | 2023-08-20 11:23 | XMS_ITS | CCD ---
Author Organization [facility] Care Team Providers Care Inspector Metal Can Name Role Phone Rosalinda Rodrigues Primary Care Provider DANELLE SALDAÑA Primary Care Unavailable SELF, REFERRED Referring Unavailable RONNY ARAUJO Attending Unavailable URIAH LEUNG Admitting Unavailable Lilia DOLL WIG MAKER - LEAD SYSTEMS DEVELOPER, Rosalinda C Primary Care Provi rashaad Unavailable LILIA, ORSALINDA C Primary Care Unavailable VIJAY RUSSELL Attending [...] LESTER Attending Unavailable SHIVAM BLACK Attending Unavailable PAPI LESTER Attending Unavailable Medications Current Medications Medication Drug Class(es) Dates Sig (Normalized) Sig (Original) acetaminophen 500 mg oral tablet (3 sources) Start: 04-10-2020 take 1 tablet by mouth every six hours as needed for pain acetaminophen (TYLENOL) 500 MG tablet Take 1 tablet by mouth every 6 hours as needed for Pain 60 tablet 0 04/10/2020 Active [id number] 200 actuat albuterol 0.09 mg/actuat metered dose [...] Ordered docusate sodium 50 mg / sennosides, mcfp 8.6 mg oral tablet (3 sources) Start: [...] Results Test Name Value Interpretation Reference Range Facil ity ED Note-Physicianon 10-08-19 ED Note-Physician Basic Information Time Seen: Be XIONG, Ruperto Chilel 09/27/2022 11:08 Chief Complaint c/o intermittent rash [...] and Complexity of Problems Differential Diagnosis: [] [facility] Data External documents reviewed: [...] LUTZ In 3 days 09/30/2022 EDT [address] [place] [id number]- Business (1) Additional Instructions: Follow-up with your primary care provider in 3 to 5 days. If symptoms worsen, do not improve, or new symptoms arise please report back to emergency department for further evaluation. Patient Education Contact Dermatitis, Qaii-dh-Vgel Attestation Patient seen and evaluated by the physician field administrative assistant. Attending physician was present in the emergency department and supervised care. This visit was performed by both the physician and an APC. I performed all aspects of the MDM as documented. This report was transcribed using voice recognition software. Every effort was made to ensure accuracy, however, inadvertently computerized drive in teller mistakes may be present. Appropriate healthcare PPE was used in evaluating this patient. The patient was placed in a mask. The healthcare provider was wearing mask, gloves, an (more content not included)... Normal [facility] Comment on above: Result Comment: Elec tronically Signed By: Ruperto Lr PA-C\.br\Date and Time Signed: 09/27/22 11:48 EDT\.br\Electronically Co-Signed By: Marvin Bartlett MD\.br\Date and Time Co-Signed: 10/07/22 08:14 EDT Consent for Treatmenton 09-08 Consent for Treatment [id number] .[id number]:127 Normal [facility] Discharge Instructionson Discharge Instructions [id number]# 1.00CD:127 Normal [facility] ED Clinical Summaryon 2022 ED Clinical Summary [place] [address] ED Clinical Summary Person Information Name: YVON SMALLS INCUATEClaudio [facility] Age: 17 Years : 2005 Sex: Female Language: Khmer PCP: NONE, XXXX Marital Status: Single Visit [...] 09/27/2022 11:39:35 09/27/2022 11:39:35 09/27/2022 11:39:35 ADDRESS: [address] [place] [phone] PHYS DOC NOTES: MEDICAL INFORMATION: Prescriptions Given: New Medications Printed Prescriptions cetirizine (cetirizine 10 mg Tab) 1 Tablets By Mouth every day. Refills: 0. predniSONE (predniSONE 20 mg Tab) 1 Tablets By Mouth As Directed. Take two tabs by mouth daily for three days, then one tab daily for three days. Refills: 0. PATIENT EDUCATION INFORMATION: Instructions: Contact Dermatitis, Yuze-io-Vkqy Follow up: With: Address: When: Anaid LUTZ [address] [place] [address] [address], [place] [phone] [facility] (2) In 3 days 09/30/2022 Comments: Follow-up with your primary care provider in 3 to 5 days. If symptoms worsen, do not improve, or new symptoms arise please report back to emergency department for further evaluation. DIAGNOSIS: Contact dermatitis Normal [facility] ED Patient Education Noteon 09-27-2022 ED Patient [...] and dyes. Medicines ? Take or apply drzp-wll-wupgmrx and prescription medicines only as told by [...] and water are not available, use hand corrosion prevention metal sprayer. General instructions ? Avoid the things that [...] provider. Document Revised: 01/09/2022 Document Reviewed: 01/09/2022 Elsevier Patient Education ? 2022 [employer] Normal [facility] ED Patient Summaryon 023 ED Patient Summary [address] [address] Patient Discharge Instructions Person Information Name: YVON SMALLS Age: 17 Years Arrival Date: 09/27/2022 10:57:13 Discharge Diagnosis: Contact dermatitis Primary Care Physician: NONE, XXXX Provider Information Primary Provider: [employer] Supervisor:None The exam and treatment you received in the Emergency Department were for an urgent problem and are not intended as complete care. It is important that you follow up with a doctor, nurse practitioner, or physician?s field administrative assistant for ongoing care. If your symptoms [...] Follow-up Instructions: With: Address: When: Anaid LUTZ [address] [place] [address] [address] [place] [phone] Business (1) In 3 days 09/30/2022 Comments: [...] participating provider. Patient Education Materials: Contact Dermatitis, Yasn-fo-Kfxo A MESSAGE TO ALL PATIENTS REGARDING OPIOIDS PRESCRIPTION OPIOIDS: WHAT YOU NEED TO KNOW Prescription opioids can be used to help relieve ywzidtyl-gr-hqyxhn pain and are often prescribed following a [...] about the (more content not included)... Normal [facility] CHLAMYDIA/GONOCOCCUS RANJAN (SW AB/URINE/PAPon 07-13-2022 Chlamydia trachomatis, RANJAN Negative Normal Negative [facility] Comment on above: Performed By: #### C T/NGNA #### [facility] [address] [place] [address] Dr. Marbella Campos Neisseria gonorrhoeae, RANJAN Negative Normal Negative [facility] Comment on above: Performed By: #### C T/NGNA #### [facility] [address] [place] [address] Dr. Marbella Campos VAGINITIS/VAGINOSIS DNA PROB David 07-12-2022 Otto species Negative Normal Negative [facility] Comment on above: Performed By: #### V AGINT #### [facility] [address] [place] [address] Dr. Marbella Campos Gardnerella vaginalis Positive Abnormal Negative [facility] Comment on above: Performed By: #### V AGINT #### [facility] [address] [place] [address] Dr. Marbella Campos Trichomonas vaginalis Negative Normal Negative [facility] Comment on above: Performed By: #### V AGINT #### [facility] [address] [place] [address] Dr. Marbella Campos CHLAMYDIA/GONOCOCCUS RANJAN (SW AB/URINE/PAPon 03-31-2022 Chlamydia trachomatis, RANJAN Negative Normal Negative [facility] Comment on above: Performed By: #### C T/NGNA #### [facility] [address] [place] [address] Dr. Marbella Campos Neisseria gonorrhoeae, RANJAN Negative Normal Negative [facility] Comment on above: Performed By: #### C T/NGNA #### [facility] [address] [place] [address] Dr. Marbella Campos VAGINITIS/VAGINOSIS DNA PROB David 03-30-2022 Otto species Negative Normal Negative [facility] Comment on above: Performed By: #### V AGINT #### [facility] [address] [address] [address] Marbella Campos Gardnerella vaginalis Positive Abnormal Negative [facility] Comment on above: Performed By: #### V AGINT #### [facility] [address] [place] [address] [address] Marbella Campos Trichomonas vaginalis Negative Normal Negative [facility] Comment on above: Performed By: #### V AGINT #### [facility] [address] [place] [address] Dr. Marbella Campos INFLUENZA A AND B AGon 03-19 INFLUBNEG SEE BELOW Normal [facility] Comment on above: Result Comment: Nega tive for Flu B protein antigen. Infection due to Flu B cannot be ruled out. Flu B antigen in the sample may be below the detection limit of the test. Performed By: #### I NFLUAB #### [facility] [address] [place] [address] Dr. Marbella Campos INFLUENZA A AG Positive Abnormal NEGATIVE SEE COMMENT [facility] Comment on above: Performed By: #### I NFLUAB #### [facility] [address] [place] [address] Dr. Marbella Campos INFLUENZA B AG Negative Normal NEGATIVE SEE COMMENT [facility] Comment on above: Performed By: #### I NFLUAB #### [facility] [address] [place] [address] Dr. Marbella Campos INFLUPOS SEE BELOW Normal [facility] Comment on above: Result Comment: NOTE : Live attenuated influenzae vaccine viruses can cause a positive result for a rapid influenza diagnostic test if administered up to 7 days prior to rapid testing. Performed By: #### I NFLUAB #### [facility] [address] [place] [address] Dr. aMrbella Campos INTERNAL CONTROLS Within Normal Limits Normal Wi thin Normal Limits [facility] Comment on above: Performed By: #### I NFLUAB #### [facility] [address] [place] [address] Dr. Marbella Campos C.trachomatis N.gonorrhoeae DNAon 01-17-2022 C. trachomatis DNA RANJAN+probe Ql (Genital specimen) POSITIVE: CHLAMYDIA TRACHOMATIS DNA detected by nucleic acid amplification. Abnormal NEGATIVE [facility] Comment on above: This test is [...] Interpretation and review of laboratory results Abnormal [facility] N. gonorrhoeae DNA Negative NEGATIVE [facility] Comment on above: NEISSERIA GONORRHOEA E [...] alternative nucleic acid target. Specimen Description .[facility] Chlamydia/GC,DNA Ampon 01-17 Chlamydia Probe POSITIVE: CHLAMYDIA TRACHOMATIS DNA detected by nucleic acid amplification. Abnormal NEG [facility] Comment on above: Result Comment: This test [...] appropriate Health Department Performed By: #### S [facility] #### [facility] [place] [id number] Test Design Engineer: Yeyo Spencer MD Gonorrhea Probe Negative Normal NEG [facility] Comment on above: Result Comment: NEIS [...] target. Performed By: #### S WCGP #### [facility] [employer] [address] [place] [address] Test Design Engineer: Yeyo Spencer MD Vaginitis DNA Probeon 2021 Otto Negative Normal NEG [facility] Comment on above: Result Comment: for Otto sp. Method of testing is a DNA probe intended for detection and identification of Otto species, Gardnerella vaginalis, and Trichomonas vaginalis nucleic acid in vaginal fluid specimens from patients with symptoms of vaginitis/vaginosis. Performed By: #### V AGP #### [facility] [employer] [address] [place] [address] Test Design Engineer: Yeyo Spencer MD Gardnerella Positive Abnormal NEG [facility] Comment on above: Result Comment: for Gardnerella vaginalis Performed By: #### V AGP #### [facility] [employer] [address] [place] [address] Test Design Engineer: Yeyo Spencer MD Trichomonas Negative Normal NEG [facility] Comment on above: Result Comment: for Trichomonas Vaginalis Performed By: #### V AGP #### [facility] [employer] [address] [place] [address] Test Design Engineer: Yeyo Spencer MD OTTO SPECIES, DNA PROBE Negative NEGATIVE [facility] Comment on above: for Otto sp. Method of testing is a DNA probe intended for detection and identification of Otto species, Gardnerella vaginalis, and Trichomonas vaginalis nucleic acid in vaginal fluid specimens from patients with symptoms of vaginitis/vaginosis. GARDNERELLA VAGINALIS, DNA PROBE Positive Abnormal NEGATIVE [facility] Comment on above: for Gardnerella vagi nalis Interpretation and review of laboratory results Abnormal [facility] Source .VAGINAL SWAB [facility] Trichomonas Vaginalis DNA Negative NEGATIVE [facility] Comment on above: for Trichomonas Vagi nalis [facility] Source .VAGINAL SWAB Normal [facility] Comment on above: Performed By: #### V AGP #### [address] [id number] Test Design Engineer: Yeyo Spencer MD Chlamydia/GC,DNA Ampon 03-21 Chlamydia Probe Negative Normal NEG [facility] Comment on above: Result Comment: CHLA [...] target. Performed By: #### S WCGP #### [address] [id number] Test Design Engineer: Yeyo Spencer MD Gonorrhea Probe Negative Normal NEG [facility] Comment on above: Result Comment: NEIS [...] target. Performed By: #### S WCGP #### [address] [id number] Test Design Engineer: Yeyo Spencer MD Vaginitis DNA Probeon 2020 [...] symptoms of vaginitis/vaginosis. Report Status FINAL 03/18/2021 [facility] Comment on above: Performed By: #### V AGDNA #### [address] [address] Test Design Engineer: Yeyo Spencer MD Cult,Urineon 03-05-2021 Cult,Urine Specimen Description .CLEAN CATCH URINE Special Requests NOT REPORTED Culture NO SIGNIFICANT GROWTH Report Status FINAL 03/05/2021 Normal [facility] Comment on above: Performed By: #### U RC #### [address] [address] Test Design Engineer: Yeyo Spencer MD Urinalysis w/ Microon 2020 ----- Normal [facility] Comment on above: Performed By: #### U AMIC #### [address] [address] Test Design Engineer: Yeyo Spencer MD Bacteria None Normal NONE [facility] Comment on above: Performed By: #### U AMIC #### [address] [address] Test Design Engineer: Yeyo Spencer MD Casts 0 TO 2 Normal 0-2 [facility] Comment on above: Result Comment: HYAL INE Performed By: #### U AMIC #### [address] [address] Test Design Engineer: Yeyo Spencer MD Crystals LM Nom (Urine sed) FEW Abnormal NONE [facility] Comment on above: Result Comment: CALC IUM OXALATE Performed By: #### U AMIC #### [address] [address] Test Design Engineer: Yeyo Spencer MD Epithelial cells LM Ql (Urine sed) 2 TO 5 Normal 0-5 [facility] Comment on above: Performed By: #### U AMIC #### [address] [address] Test Design Engineer: Yeyo Spencer MD Mucus Strands 2+ Abnormal NONE [facility] Comment on above: Performed By: #### U AMIC #### [address] [address] Test Design Engineer: Yeyo Spencer MD Urine RBC's 0 TO 2 Normal 0-2 [facility] Comment on above: Performed By: #### U AMIC #### [address] [address] Test Design Engineer: Yeyo Spencer MD Urine WBC's 0 TO 2 Normal 0-5 [facility] Comment on above: Performed By: #### U AMIC #### [address] [address] Test Design Engineer: Yeyo Spencer MD Bilirubin, SemiQt,Ur Negative Normal NEG [facility] Comment on above: Performed By: #### U AMIC #### [address] [address] Test Design Engineer: Yeyo Spencer MD Blood, Urine Negative Normal NEG [facility] Comment on above: Performed By: #### U AMIC #### [address] [address] Test Design Engineer: Yeyo Spencer MD Clarity (U) Clear Normal CLEAR [facility] Comment on above: Performed By: #### U AMIC #### [address] [address] Test Design Engineer: Yeyo Spencer MD Color (U) Yellow Normal YEL [facility] Comment on above: Performed By: #### U AMIC #### [address] [address] Test Design Engineer: Yeyo Spencer MD Glucose Ql (U) Negative Normal NEG [facility] Comment on above: Performed By: #### U AMIC #### [address] [address] Test Design Engineer: Yeyo Spencer MD Ketones Ql (U) Negative Normal NEG [facility] Comment on above: Performed By: #### U AMIC #### [address] [address] Test Design Engineer: Yeyo Spencer MD Leukocyte esterase Test strip Ql (U) Negative Normal NEG [facility] Comment on above: Performed By: #### U AMIC #### [address] [address] Test Design Engineer: Yeyo Spencer MD Nitrite,Ur Negative Normal NEG [facility] Comment on above: Performed By: #### U AMIC #### [address] [address] Test Design Engineer: Yeyo Spencer MD PH,Ur 6.0 Normal 5.0-8.0 [facility] Comment on above: Performed By: #### U AMIC #### [address] [address] Test Design Engineer: Yeyo Spencer MD Protein Ql (U) Negative Normal NEG [facility] Comment on above: Performed By: #### U AMIC #### [address] [address] Test Design Engineer: Yeyo Spencer MD Spec. [place],Ur 1.027 Normal 1.005-1.030 [facility] Comment on above: Performed By: #### U AMIC #### [address] [address] Test Design Engineer: Yeyo Spencer MD Urobilinogen,Ur Normal Normal NORM [facility] Comment on above: Performed By: #### U AMIC #### [address] [address] Test Design Engineer: Yeyo Spencer MD Amorphous sediment LM Ql (Urine sed) NOT REPORTED Normal NONE [facility] Comment on above: Performed By: #### U AMIC #### [address] [address] Test Design Engineer: Yeyo Spencer MD Epithelial, Renal NOT REPORTED Normal 0 [facility] Comment on above: Performed By: #### U AMIC #### [address] [address] Test Design Engineer: Yeyo Spencer MD Other Observations NOT REPORTED Normal NREQ [facility] Comment on above: Performed By: #### U AMIC #### [address] [address] Test Design Engineer: Yeyo Spencer MD Trichomonas NOT REPORTED Normal NONE [facility] Comment on above: Performed By: #### U AMIC #### [address] [address] Test Design Engineer: Yeyo Spencer MD Yeast NOT REPORTED Normal NONE [facility] Comment on above: Performed By: #### U AMIC #### [address] [address] Test Design Engineer: Yeyo Spencer MD [id number] 12-07-2020 SARS-CoV-2 (COVID-19) RNA RANJAN+probe Ql (Unsp spec) Detected Abnormal NOTDET [facility] Comment on above: Result Comment: Rapid [...] this assay. Fact sheet for Healthcare Providers: https://www.fda.gov/media/936884/download Fact sheet for Patients: https://www.fda.gov/media/736799/download Methodology: Isothermal Nucleic Acid Amplification Results reported to the appropriate Health Department Performed By: #### C OVRB ####[facility] [id number] [place] [address] Lab Director: Gamaliel Calderon DO HIV Ag/Abon 04-27-2020 HIV Ag/Ab Non-Reactive Normal NR [facility] Comment on above: Result Comment: No l aboratory evidence of HIV infection. If acute HIV infection is suspected, consider testing for HIV-1 RNA. Performed By: #### H IVCMB #### [facility] [address] [place] [address] Test Design Engineer: Yeyo Spencer MD HIV Screenon 04-27-2020 HIV Ag/Ab NONREACTIVE NONREACTIVE [place], [place] Comment on above: No laboratory eviden ce of HIV infection. If acute HIV infection is suspected, consider testing for HIV-1 RNA. US PELVIS COMPLETEon 021 US PELVIS COMPLETE EXAMINATION: PELVIC ULTRASOUND 04/27/2020 TECHNIQUE: Transabdominal pelvic ultrasound was performed. COMPARISON: CT 04/10/2020 HISTORY: ORDERING SYSTEM PROVIDED HISTORY: Abdominal pain, suprapubic TECHNOLOGIST PROVIDED HISTORY: This procedure can be scheduled via [employer]. Access your [employer] account by visiting [email or web address]. ovarian cyst, abdominal pain FINDINGS: Measurements: Uterus: [...] Melgar MD Signed by: Juan Melgar MD 04/27/20 Final result Normal [facility] Unremarkable pelvic ultrasound. [place], [place] EXAMINATION: PELVIC ULTRASOUND 04/27/2020 TECHNIQUE: Transabdominal pelvic ultrasound was performed. COMPARISON: CT 04/10/2020 HISTORY: ORDERING SYSTEM PROVIDED HISTORY: Abdominal pain, suprapubic TECHNOLOGIST PROVIDED HISTORY: This procedure can be scheduled via [employer]. Access your [employer] account by visiting [email or web address]. ovarian cyst, abdominal pain FINDINGS: Measurements: Uterus: [...] fluid in the cul-de-sac is likely physiologic [place], [place], [employer] Incoming Radiant Results From [employer] - 04/27/2020 11:11 AM EST EXAMINATION: PELVIC ULTRASOUND 04/27/2020 TECHNIQUE: Transabdominal pelvic ultrasound was performed. COMPARISON: CT 04/10/2020 HISTORY: ORDERING SYSTEM PROVIDED HISTORY: Abdominal pain, suprapubic TECHNOLOGIST PROVIDED HISTORY: This procedure can be scheduled via [employer]. Access your [employer] account by visiting [email or web address]. ovarian cyst, abdominal pain FINDINGS: Measurements: Uterus: [...] is likely physiologic IMPRESSION: Unremarkable pelvic ultrasound. [place], [place] Microscopic Urinalysison Amorphous, UA NOT REPORTED None [place], [place] Bacteria, UA MODERATE Abnormal None [place], [place] Casts UA 5 TO 10 HYALINE Reference range defined for non-centrifuged specimen. [place], [place] Crystals, UA NOT REPORTED None /HPF [place] Epithelial Cells UA 20 TO 50 [place] Interpretation and review of laboratory results Abnormal [place] Mucus, UA NOT REPORTED None [place], [place] Other Observations UA NOT REPORTED NOT REQ. [place] RBC (U) [#/Vol] 2 TO 5 [place], [place] Comment on above: Reference range defi marlen for non-centrifuged specimen. Renal Epithelial, UA NOT REPORTED 0 /HPF Me [place], [place] Trichomonas, UA NOT REPORTED None [place], [place] WBC, UA 10 TO 20 [place] Yeast, UA NOT REPORTED None [place], [place] - [place] Urinalysison 04-14-2020 Bilirubin Urine Negative NEGATIVE [place], [place] Color, UA YELLOW YELLOW [place] Glucose, Ur Negative NEGATIVE [place] Interpretation and review of laboratory results Abnormal [place] Ketones Ql (U) Negative NEGATIVE [place] Leukocyte esterase Test strip Ql (U) TRACE Abnormal NEGATIVE [place] Nitrite, Urine Negative NEGATIVE [place] pH, UA 6.5 [place] Protein (U) [Mass/Vol] Negative NEGATIVE [place] Specific [place], UA 1.026 [place], [place] Turbidity UA CLOUDY Abnormal CLEAR [place] Urinalysis Comments NOT REPORTED [place], [place] Urine Hgb Negative NEGATIVE [place] Urobilinogen, Urine Normal Normal [place] Chlamydia/GC,DNA Ampon 04-12 Chlamydia Probe Negative Normal NEG [facility] Comment on above: Result Comment: CHLA [...] target. Performed By: #### S WCGP #### [facility] [employer] [address] [place], [place] [id number] Test Design Engineer: Yeyo Spencer MD Gonorrhea Probe Negative Normal NEG [facility] Comment on above: Result Comment: NEIS [...] target. Performed By: #### S WCGP #### [facility] [employer] [address] [place], [place] [id number] Test Design Engineer: Yeyo Spencer MD CBC Auto Differentialon Basophils (Bld) [#/Vol] 0.00 10*3/uL [place] Basophils/100 WBC (Bld) 0 % 0 - 2 % [place] Differential Type NOT REPORTED [place] Eosinophils (Bld) [#/Vol] 0.10 10*3/uL [place] Eosinophils/100 WBC (Bld) 1 % 0 - 4 % [place] Erythrocyte distribution width (RBC) [Ratio] 11.7 % 11.5 - 14.9 % [place] Hematocrit (Bld) [Volume fraction] 39.8 % 36 - 46 % [place] Hemoglobin (Bld) [Mass/Vol] 13.3 g/dL 12 - 16 g/dL [place] Interpretation and review of laboratory results Abnormal [place] Lymphocytes (Bld) [#/Vol] 1.60 10*3/uL [place] Lymphocytes/100 WBC (Bld) 15 % Low 25 - 45 % [place] MCH (RBC) [Entitic mass] 31.7 pg 25 - 35 pg [place] MCHC (RBC) [Mass/Vol] 33.5 g/dL 31 - 37 g/dL [place] MCV (RBC) [Entitic vol] 94.5 fL 78 - 102 fL [place] Monocytes (Bld) [#/Vol] 0.60 10*3/uL [place] Monocytes/100 WBC (Bld) 6 % 2 - 8 % [place] Platelet mean volume (Bld) [Entitic vol] 7.1 fL 6 - 12 fL [place], [place] Platelets (Bld) [#/Vol] 322 10*3/uL [place] Platelets (Bld) [#/Vol] NOT REPORTED [place] RBC (Bld) [#/Vol] 4.21 10*6/uL 4 - 5.2 m/uL [place] RBC morphology finding Nom (Bld) NOT REPORTED [place] Segmented neutrophils/100 WBC (Bld) 78 % High 34 - 64 % [place] Segs Absolute 8.50 [place], [place] WBC (Bld) [#/Vol] NOT REPORTED per 100 WBC [place] WBC (Bld) [#/Vol] 10.8 10*3/uL [place] WBC Morphology NOT REPORTED [place], [place] CBC with Diffon 04-10-2020 Abs. Basophil 0.00 k/uL Normal 0.0-0.2 [facility] Comment on above: Performed By: #### M Cesario, CDP, CP, HCG, LIP ####[facility] [id number] [facility] [place] [address] Lab Director: Gamaliel Calderon DO Abs.Neutrophil (Seg) 8.50 k/uL Normal 1.3-9.1 [facility] Comment on above: Performed By: #### M G, CDP, CP, HCG, LIP ####[facility] [id number] [facility] [place] [address] Lab Director: Fanelly, Gamaliel, DO Basophils/100 WBC (Bld) 0 % Normal 0-2 [facility] Comment on above: Performed By: #### M G, CDP, CP, HCG, LIP ####[facility] [id number] [facility] [place] [address] Lab Director: Gamaliel Calderon DO Eosinophils (Bld) [#/Vol] 0.10 10*3/uL Normal 0.0-0.4 [facility] Comment on above: Performed By: #### M G, CDP, CP, HCG, LIP ####[facility] [id number] [facility] [place] [address] Lab Director: Gamaliel Calderon DO Eosinophils/100 WBC (Bld) 1 % Normal 0-4 [facility] Comment on above: Performed By: #### M G, CDP, CP, HCG, LIP ####[facility] [id number] [facility] [place] [address] Lab Director: Gamaliel Calderon DO Erythrocyte distribution width (RBC) [Ratio] 11.7 % Normal 11.5-14.9 [facility] Comment on above: Performed By: #### M G, CDP, CP, HCG, LIP ####[facility] [id number] [facility] [place] [address] lab Director: Gamaliel Calderon DO Hematocrit (Bld) [Volume fraction] 39.8 % Normal 36-46 [facility] Comment on above: Performed By: #### M G, CDP, CP, HCG, LIP ####[facility] [id number] [facility] [place] [address] Lab Director: Gamaliel Calderon DO Hemoglobin (Bld) [Mass/Vol] 13.3 g/dL Normal 12.0-16.0 [facility] Comment on above: Performed By: #### M G, CDP, CP, HCG, LIP ####[facility] Oja[address] [facility].[place], [place] [phone] Director: Gamaliel Calderon DO Lymphocytes (Bld) [#/Vol] 1.60 10*3/uL Normal 1.2-5.2 [facility] Comment on above: Performed By: #### M G, CDP, CP, HCG, LIP ####[facility] [id number], [place] [phone] Director: Gamaliel Calderon DO Lymphocytes/100 WBC (Bld) 15 % Low 25-45 [facility] Comment on above: Performed By: #### M G, CDP, CP, HCG, LIP ####[facility] [id number] [place], [place] [address], [place] [phone] Director: Gamaliel Calderon DO MCH (RBC) [Entitic mass] 31.7 pg Normal 25-35 [facility] Comment on above: Performed By: #### Prateek G, CDP, CP, HCG, LIP ####[facility] [address] [facility].[place], [place] [phone] Director: Gamaliel Calderon DO MCHC (RBC) [Mass/Vol] 33.5 g/dL Normal 31-37 [facility] Comment on above: Performed By: #### M G, CDP, CP, HCG, LIP ####[facility] [address]kh[address] [facility].[place], [place] [phone] Director: Gamaliel Calderon DO MCV (RBC) [Entitic vol] 94.5 fL Normal 78-102 [facility] Comment on above: Performed By: #### M G, CDP, CP, HCG, LIP ####[facility] [id number], [place] [phone] Director: Gamaliel Calderon DO Monocytes (Bld) [#/Vol] 0.60 10*3/uL Normal 0.1-1.3 [facility] Comment on above: Performed By: #### M G, CDP, CP, HCG, LIP ####[facility] [id number], [place] [phone] Director: Gamaliel Calderon DO Monocytes/100 WBC (Bld) 6 % Normal 2-8 [facility] Comment on above: Performed By: #### M G, CDP, CP, HCG, LIP ####[facility] [id number] [facility].[place], [place] [phone] Director: Gamaliel Calderon DO Neutrophil (Seg) 78 % High 34-64 [facility] Comment on above: Performed By: #### M G, CDP, CP, HCG, LIP ####[facility] [id number] [facility].[place], [place] [phone] Director: Gamaliel Calderon DO Platelet mean volume (Bld) [Entitic vol] 7.1 fL Normal 6.0-12.0 [facility] Comment on above: Performed By: #### Prateek G, CDP, CP, HCG, LIP ####[facility] Eca4795 [facility].[place], [place] [phone] Director: Gamaliel Calderon DO Platelets (Bld) [#/Vol] 322 10*3/uL Normal 150-450 [facility] Comment on above: Performed By: #### M G, CDP, CP, HCG, LIP ####[facility] [id number] [facility], [place] [phone] Director: Gamaliel Calderon DO RBC (Bld) [#/Vol] 4.21 10*6/uL Normal 4.0-5.2 [facility] Comment on above: Performed By: #### M G, CDP, CP, HCG, LIP ####[facility] [id number] [facility].[place], [place] [phone] Director: Gamaliel Calderon DO WBC (Bld) [#/Vol] 10.8 10*3/uL Normal 4.5-13.5 [facility] Comment on above: Performed By: #### M G, CDP, CP, HCG, LIP ####[facility] [id number] [place] [address] Lab Director: Gamaliel Calderon DO Abs.Imm.Granulocyte NOT REPORTED Normal 0.00-0.30 [facility] Comment on above: Performed By: #### M G, CDP, CP, HCG, LIP ####[facility] [id number] [place], [place] [phone] Director: Gamaliel Calderon DO Auto Diff Performed NOT REPORTED Normal [facility] Comment on above: Performed By: #### M G, CDP, CP, HCG, LIP ####[facility] [address] [place] [address] [phone] Director: Gamaliel Calderon DO Immature Granulocyte NOT REPORTED Normal 0 [facility] Comment on above: Performed By: #### M G, CDP, CP, HCG, LIP ####[facility] [id number] [facility].[place], [place] [phone] Director: Gamaliel Calderon DO NRBC Automated NOT REPORTED Normal [facility] Comment on above: Performed By: #### M G, CDP, CP, HCG, LIP ####[facility] [id number] [place] [address] Lab Director: Gamaliel Calderon DO Platelet Estimate NOT REPORTED Normal [facility] Comment on above: Performed By: #### M G, CDP, CP, HCG, LIP ####[facility] Oxe[address]307 [place], [place] [phone] Director: Gamaliel Calderon DO RBC morphology finding Nom (Bld) NOT REPORTED Normal [facility] Comment on above: Performed By: #### M G, CDP, CP, HCG, LIP ####[facility] [address] [place] [address] Lab Director: Gamaliel Calderon DO WBC Morphology NOT REPORTED Normal [facility] Comment on above: Performed By: #### M G, CDP, CP, HCG, LIP ####[facility] [address] [place] [address] Lab Director: Gamaliel Calderon DO CT ABDOMEN [...] Radhika Sloan MD 04/10/20 Final result Normal [facility] CT ABDOMEN PELVIS W IV CONTR AST Additional Contrast? Noneon 04-10-2020 Dom[place], Mhpn Incoming Radiant Results From [employer] Videocribe/Pacs - 04/10/2020 3:44 PM EST EXAMINATION: CT [...] ovarian cysts of less than 2 cm. [facility] [place], [place] EXAMINATION: CT OF THE ABDOMEN [...] No acute osseous or soft tissue abnormality. [place], [place] Scattered fluid-filled small bowel loops favoring enteritis. No small bowel obstruction, gallstones, or appendicitis. No urinary obstruction. Hypodensities in the adnexal areas compatible with cysts. RECOMMENDATIONS: No further ultrasound evaluation for appearance of ovarian cysts of less than 2 cm. [place] Comp Metabolic Profon 2020 (cont.) Normal [facility] Comment on above: Result Comment: Aver age GFR for <20 years old not available. Chronic Kidney Disease: <60 mL/min/1.73sq m Kidney failure: <15 mL/min/1.73sq m eGFR calculated using average adult body mass. Additional eGFR calculator available at: http://www.[employer]/multiple_crcl_2011.htm Performed By: #### M G, CDP, CP, HCG, LIP ####[facility] [id number] [place] [address] lab Director: Gamaliel Calderon DO Albumin [Mass/Vol] 4.1 g/dL Normal 3.2-4.5 [facility] Comment on above: Performed By: #### M G, CDP, CP, HCG, LIP ####[facility] [id number] [place] [address] lab Director: Gamaliel Calderon DO Alkaline Phos 77 U/L Normal 47-119 [facility] Comment on above: Performed By: #### M G, CDP, CP, HCG, LIP ####[facility] [address] [place] [address] lab Director: Gamaliel Calderon DO ALT [Catalytic activity/Vol] 10 U/L Normal 5-33 [facility] Comment on above: Performed By: #### M G, CDP, CP, HCG, LIP ####[facility] [address] [place] [address] lab Director: Gamaliel Calderon DO Anion gap [Moles/Vol] 9 mmol/L Normal 9-17 [facility] Comment on above: Performed By: #### M G, CDP, CP, HCG, LIP ####[facility] [id number] [place] [address] lab Director: Gamaliel Calderon DO AST [Catalytic activity/Vol] 14 U/L Normal <32 [facility] Comment on above: Performed By: #### M G, CDP, CP, HCG, LIP ####[facility] [address] [place] [address] lab Director: Gamaliel Calderon DO Bilirubin [Mass/Vol] 0.54 mg/dL Normal 0.3-1.2 [facility] Comment on above: Performed By: #### M G, CDP, CP, HCG, LIP ####[facility] [address] [place] [address] Lab Director: Gamaliel Calderon DO Calcium [Mass/Vol] 9.2 mg/dL Normal 8.4-10.2 [facility] Comment on above: Performed By: #### M G, CDP, CP, HCG, LIP ####[facility] [id number] [place] [address] Lab Director: Gamaliel Calderon DO Chloride [Moles/Vol] 105 mmol/L Normal 98-107 [facility] Comment on above: Performed By: #### M G, CDP, CP, HCG, LIP ####[facility] [id number] [place] [address] lab Director: Gamaliel Calderon DO CO2 [Moles/Vol] 25 mmol/L Normal 20-31 [facility] Comment on above: Performed By: #### M G, CDP, CP, HCG, LIP ####[facility] [address] [place] [address] lab Director: Gamaliel Calderon DO Creatinine [Mass/Vol] 0.54 mg/dL Normal 0.50-0.90 [facility] Comment on above: Performed By: #### M G, CDP, CP, HCG, LIP ####[facility] [id number] [facility], [place] [phone] Director: Gamaliel Calderon DO GFR,non Amer Pediatric GFR requires additional information. Refer to NKDEP website for Normal >60 [facility] Comment on above: Result Comment: calc ulator. Performed By: #### M G, CDP, CP, HCG, LIP ####[facility] [id number] [place] [address] lab Director: Gamaliel Calderon DO Glucose [Mass/Vol] 98 mg/dL Normal 60-100 [facility] Comment on above: Performed By: #### M G, CDP, CP, HCG, LIP ####[facility] [id number] [place] [address] Lab Director: Gamaliel Calderon DO Potassium [Moles/Vol] 4.2 mmol/L Normal 3.6-4.9 [facility] Comment on above: Performed By: #### M G, CDP, CP, HCG, LIP ####[facility] [id number] [place] [address] Lab Director: Gamaliel Calderon DO Protein [Mass/Vol] 6.8 g/dL Normal 6.0-8.0 [facility] Comment on above: Performed By: #### M G, CDP, CP, HCG, LIP ####[facility] [id number] [place] [address] Lab Director: Gamaliel Calderon DO Sodium [Moles/Vol] 139 mmol/L Normal 135-144 [facility] Comment on above: Performed By: #### M G, CDP, CP, HCG, LIP ####[facility] [address] [place] [address] Lab Director: Gamaliel Calderon DO Urea nitrogen [Mass/Vol] 10 mg/dL Normal 5-18 [facility] Comment on above: Performed By: #### M G, CDP, CP, HCG, LIP ####[facility] [id number] [place] [address] Lab Director: Gamaliel Calderon DO Albumin/Glob Ratio NOT REPORTED Normal 1.0-2.5 [facility] Comment on above: Performed By: #### M G, CDP, CP, HCG, LIP ####[facility] [id number] [place] [address] Lab Director: Gamaliel Calderon DO BUN/CRE Ratio NOT REPORTED Normal 9-20 [facility] Comment on above: Performed By: #### M G, CDP, CP, HCG, LIP ####[facility] [id number] [facility] [place] [address] Lab Director: Gamaliel Calderon DO GFR, Amer NOT REPORTED Normal >60 [facility] Comment on above: Performed By: #### M G, CDP, CP, HCG, LIP ####[facility] [id number] [facility] [place] [address] Lab Director: Gamaliel Calderon DO Staging: NOT REPORTED Normal [facility] Comment on above: Performed By: #### M G, CDP, CP, HCG, LIP ####[facility] [address] [facility] [place] [address] lab Director: Gamaliel Calderon DO Comprehensive Metabolic Pane tommy 04-10-2020 Albumin [Mass/Vol] 4.1 g/dL 3.2 - 4.5 g/dL [place] Albumin/Globulin [Mass ratio] NOT REPORTED [place] ALP [Catalytic activity/Vol] 77 U/L 47 - 119 U/L [place] ALT [Catalytic activity/Vol] 10 U/L 5 - 33 U/L [place] Anion gap [Moles/Vol] 9 mmol/L 9 - 17 mmol/L [place] AST [Catalytic activity/Vol] 14 U/L <32 [place] Bilirubin Ql (U) 0.54 mg/dL 0.3 - 1.2 mg/dL [place], [place] Bun/Cre Ratio NOT REPORTED [place] Calcium [Mass/Vol] 9.2 mg/dL 8.4 - 10.2 mg/dL [place] Chloride [Moles/Vol] 105 mmol/L 98 - 107 mmol/L [place] CO2 [Moles/Vol] 25 mmol/L 20 - 31 mmol/L [place] Creatinine [Mass/Vol] 0.54 mg/dL 0.5 - 0.9 mg/dL [place] GFR NOT REPORTED >60 mL/min [place] GFR Non- Pediatric GFR requires additional information. Refer to NKDEP website for calculator. >60 mL/min [place] GFR/1.73 sq M predicted among non-blacks MDRD (S/P/Bld) [Vol rate/Area] [place] Comment on above: Average GFR for <20 years old not available. Chronic Kidney Disease: <60 mL/min/1.73sq m Kidney failure: <15 mL/min/1.73sq m eGFR calculated using average adult body mass. Additional eGFR calculator available at: http://www.[employer]/multiple_crcl_2012.htm GFR/1.73 sq M predicted among non-blacks MDRD (S/P/Bld) [Vol rate/Area] NOT REPORTED [place] Glucose [Mass/Vol] 98 mg/dL 60 - 100 mg/dL [place] Potassium [Moles/Vol] 4.2 mmol/L 3.6 - 4.9 mmol/L [place] Protein [Mass/Vol] 6.8 g/dL 6 - 8 g/dL [place] Sodium [Moles/Vol] 139 mmol/L 135 - 144 mmol/L [place] Urea nitrogen [Mass/Vol] 10 mg/dL 5 - 18 mg/dL [place] HCG Qualitative, Serumon hCG Qual Negative NEGATIVE [place] Comment on above: Specimens with hCG [...] 04-10-19 HCG Screen, Blood Negative Normal NEG [facility] Comment on above: Result Comment: Spec [...] #### M G, CDP, CP, HCG, LIP ####[facility] [id number] [facility] [place] [address] Lab Director: Gamaliel Calderon DO Lipaseon 04-10-2020 Lipase [Catalytic activity/Vol] 16 U/L Normal 13-60 [facility] Comment on above: Performed By: #### M G, CDP, CP, HCG, LIP ####[facility] [id number] [facility] [place] [address] Lab Director: Gamaliel Calderon DO Lipase [Catalytic activity/Vol] 16 U/L 13 - 60 U/L [place] Magnesiumon 04-10-2020 Magnesium [Mass/Vol] 2.0 mg/dL Normal 1.7-2.2 [facility] Comment on above: Performed By: #### M G, CDP, CP, HCG, LIP ####[facility] [id number] [facility] [place] [address] lab Director: Gamaliel Calderon DO Magnesium [Mass/Vol] 2.0 mg/dL 1.7 - 2.2 mg/dL [place] Microscopic Urinalysison Amorphous, UA 1+ Abnormal None [facility], [place] Bacteria, UA FEW Abnormal None [place], [place] Casts UA NOT REPORTED /LPF [place] Crystals, UA NOT REPORTED None /HPF [place] Epithelial Cells UA 0 TO 2 /HPF [place] Interpretation and review of laboratory results Abnormal [place] Mucus, UA NOT REPORTED None [place], [place] Other Observations UA NOT REPORTED NOT REQ. [place] RBC (U) [#/Vol] 20 TO 50 /HPF [place] Renal Epithelial, UA NOT REPORTED 0 /HPF [place] Trichomonas, UA NOT REPORTED None [facility] [place] WBC, UA 10 TO 20 /HPF [place] Yeast, UA NOT REPORTED None [facility], [place] - [place], [place] Otheron 04-10-2020 Direct Exam Negative [place] Immature granulocytes (Bld) [#/Vol] NOT REPORTED [place] Urinalysison 04-10-2020 Bilirubin [facility] [place] [place] Color, UA YELLOW YELLOW [place] Glucose, Ur Negative NEGATIVE [place] Interpretation and review of laboratory results Abnormal [place] Ketones Ql (U) Negative NEGATIVE [place] Leukocyte esterase Test strip Ql (U) MOD Abnormal NEGATIVE [place] Nitrite, Urine Positive Abnormal NEGATIVE [place] pH, UA 7.0 [place], [place] Protein (U) [Mass/Vol] 1+ Abnormal NEGATIVE [place] Specific [place], UA 1.018 [place], [place] Turbidity UA CLEAR CLEAR [place], [place] Urinalysis Comments NOT REPORTED [place] Urine Hgb LARGE Abnormal NEGATIVE [place] Urobilinogen, Urine Normal Normal [place] Urinalysis, Routineon 2020 Acetoacetic Acid,Ur Negative Normal NEG [facility] Comment on above: Performed By: #### CHASE Delaney #### [facility] Lab [address] [place] [address] Test Design Engineer: Gamaliel Calderon DO Bilirubin, SemiQt,Ur Negative Normal NEG [facility] Comment on above: Performed By: #### CHASE Delaney #### [facility] Lab [address] [place], [place] [phone] Test Design Engineer: Gamaliel Calderon DO Color (U) YELLOW Normal YEL [facility] Comment on above: Performed By: #### CHASE Delaney #### [facility] Lab [address] [facility] [place] [address] Test Design Engineer: Gamaliel Calderon DO Glucose Ql (U) Negative Normal NEG [facility] Comment on above: Performed By: #### CHASE Delaney #### [facility] Lab [address] [facility] [place] [address] Test Design Engineer: Gamaliel Calderon DO Hemoglobin, Ur LARGE Abnormal NEG [facility] Comment on above: Performed By: #### CHASE Delaney #### [facility] Lab [address] [place] [address] Test Design Engineer: Gamaliel Calderon DO Leukocyte esterase Test strip Ql (U) MOD Abnormal NEG [facility] Comment on above: Performed By: #### CHASE Delaney #### [facility] Lab [facility] [place] [place] [address] Test Design Engineer: Gamaliel Calderon DO Nitrite,Ur Positive Abnormal NEG [facility] Comment on above: Performed By: #### CHASE Delaney #### [facility] Lab [address] [facility] [place] [address] Test Design Engineer: Gamaliel Calderon DO PH,Ur 7.0 Normal 5.0-8.0 [facility] Comment on above: Performed By: #### CHASE Delaney #### [facility] Lab [facility] [place] [facility] [place] [address] Test Design Engineer: Gamaliel Calderon DO Protein Ql (U) 1+ Abnormal NEG [facility] Comment on above: Performed By: #### CHASE Delaney #### [facility] Lab [address] [place] [address] Test Design Engineer: Gamaliel Calderon DO Spec. [place],Ur 1.018 Normal 1.000-1.030 [facility] Comment on above: Performed By: #### CHASE Delaney #### [facility] Lab [address] [place] [address] Test Design Engineer: Gamaliel Calderon DO Turbidity CLEAR Normal CLEAR [facility] Comment on above: Performed By: #### CHASE Delaney #### [facility] Lab [address] [place] [address] Test Design Engineer: Gamaliel Calderon DO Urobilinogen,Ur Normal Normal NORM [facility] Comment on above: Performed By: #### CHASE Delaney #### [facility] Lab [address] [place] [address] Test Design Engineer: Gamaliel Calderon DO Comment NOT REPORTED Normal [facility] Comment on above: Performed By: #### CHASE Delaney #### [facility] Lab [address] [place] [address] Test Design Engineer: Gamaliel Calderon DO Urinalysis,Microon 1 ----- Normal [facility] Comment on above: Performed By: #### CHASE Delaney ####[facility] [id number] [place] [address] Lab Director: Gamaliel Calderon DO Amorphous sediment LM Ql (Urine sed) 1+ Abnormal NONE [facility] Comment on above: Performed By: #### CHASE Delaney ####[facility] [id number] [place] [address] Lab Director: Gamaliel Calderon DO Bacteria FEW Abnormal NONE [facility] Comment on above: Performed By: #### CHASE Delaney ####[facility] [id number] [place] [address] Lab Director: Gamaliel Calderon DO Epithelial cells LM Ql (Urine sed) 0 TO 2 Normal [facility] Comment on above: Performed By: #### CHASE Delaney ####[facility] [address] [facility], [place] [phone] Director: Gamaliel Calderon DO Urine RBC's 20 TO 50 Normal [facility] Comment on above: Performed By: #### CHASE Delaney ####[facility] [address] [place] [address].[place], [place] [phone] Director: Gamaliel Calderon DO Urine WBC's 10 TO 20 Normal [facility] Comment on above: Performed By: #### CHASE Delaney ####[facility] [id number] [place] [address].[place], [place] [phone] Director: Gamaliel Calderon DO Casts NOT REPORTED Normal [facility] Comment on above: Performed By: #### CHASE Delaney ####[facility] [id number] [place] [address].[place] [address] Lab Director: Gamaliel Calderon DO Crystals LM Nom (Urine sed) NOT REPORTED Normal NONE [facility] Comment on above: Performed By: #### CHASE Delaney ####[facility] [id number] [place] [address].[place], [place] [phone] Director: Gamaliel Calderon DO Epithelial, Renal NOT REPORTED Normal 0 [facility] Comment on above: Performed By: #### CHASE Delaney ####[facility] [address] [place] [address].[place], [place] [phone] Director: Gamaliel Calderon DO Mucus Strands NOT REPORTED Normal NONE [facility] Comment on above: Performed By: #### CHASE Delaney ####[facility] [address] [place] [address].[place] [address] Lab Director: Gamaliel Calderon DO Other Observations NOT REPORTED Normal NREQ [facility] Comment on above: Performed By: #### U CHASE Diez ####[facility] [address] [facility] [place] [address] Lab Director: Gamaliel Calderon DO Trichomonas NOT REPORTED Normal NONE [facility] Comment on above: Performed By: #### U CHASE Diez ####[facility] [address] [facility] [place] [address] Lab Director: Gamaliel Calderon DO Yeast NOT REPORTED Normal NONE [facility] Comment on above: Performed By: #### U CAHSE Diez ####[facility] I[address] [facility] [place] [address] Lab Director: Gamaliel Calderon DO VAGINITIS DNA PROBEon 2020 Direct Exam Method of testing is a DNA probe intended for detection and identification of Otto species, Gardnerella vaginalis, and Trichomonas vaginalis nucleic acid in vaginal fluid specimens from patients with symptoms of vaginitis/vaginosis. [place], [place] Special Requests NOT REPORTED [place] Specimen Description .VAG[place], [place] Vaginitis DNA Probeon 2020 Vaginitis DNA [...] of vaginitis/vaginosis. Report Status FINAL 04/10/2020 Normal [facility] Comment on above: Performed By: #### V AGDNA #### [facility] Lab [address] [facility] [place] [address] Test Design Engineer: Gamaliel Caldreon DO Group A Strep DNAon 04-01-20 Group A Strep DNA Specimen Description .THROAT SWAB Special Requests NOT REPORTED Direct Exam Negative: Specimen negative for Streptococcus pyogenes by DNA amplification. Report Status FINAL 04/01/2020 Normal [facility] Comment on above: Performed By: #### G ASDNA ####[facility] [id number] [place] [address] Lab Director: Gamaliel Calderon DOMercy [address] [address] [facility] Director: Yeyo Spencer MD HCG, ,Urineon 03-31 Beta HCG ( test) Ql (U) Negative Normal NEG [facility] Comment on above: Result Comment: Spec [...] By: #### U HCG, UAX, UMICAO #### [facility] Lab [address] [place] [address] Test Design Engineer: Gamaliel Calderon DO Beta HCG ( test) Ql (U) Negative NEGATIVE [place], [place] Comment on above: Specimens with hCG l evels near the threshold of the test (25 mIU/mL) may give a negative or indeterminate result. In such cases, another test should be performed with a new specimen in 48-72 hours. If early is suspected clinically in this setting, correlation with quantitative serum b-hCG level is suggested. Microscopic Urinalysison Amorphous, UA NOT REPORTED None [facility], [place] Bacteria, UA MODERATE Abnormal None [facility], [place] Casts UA NOT REPORTED /LPF [facility], [place] Crystals, UA NOT REPORTED None /HPF [facility], [place] Epithelial Cells UA 5 TO 10 /HPF [facility], [place] Interpretation and review of laboratory results Abnormal [place], [place] Mucus, UA NOT REPORTED None [place], [place] Other Observations UA NOT REPORTED NOT REQ. [place], [place] RBC (U) [#/Vol] 0 TO 2 /HPF [facility] Kisha [place], [place] Renal Epithelial, UA NOT REPORTED 0 /HPF Me [place], [place] Trichomonas, UA NOT REPORTED None [facility] [place] WBC, UA 0 TO 2 /HPF [place] Yeast, UA NOT REPORTED None [place], [place] - [place] STREP SCREEN GROUP A THROATo n 03-31-2020 S. pyogenes Ag IA Ql (Unsp spec) Rapid Strep A negative. A negative Rapid Group A Strep Screen result does not rule out the possibility of Group A Streptococci in the specimen. The [place] [employer] recommends confirmation testing. Therefore, a Group A Strep DNA test will be performed. [place], [place] Special Requests NOT REPORTED [place] Specimen Description .THROAT [place], [place] Strep Gr A Direct Agon 03-31 Strep Gr A Direct Ag Specimen Descriptio n .THROAT Special Requests NOT REPORTED Direct Exam Rapid Strep A negative. A negative Rapid Group A Strep Screen result does not rule out the possibility of Group A Streptococci in the specimen. The [place] [employer] recommends confirmation testing. Therefore, a Group A Strep DNA test will be performed. Report Status FINAL 03/31/2020 Normal [facility] Comment on above: Performed By: #### S GPA #### [facility] Lab [address] [place] [address]. [place] [address] Test Design Engineer: Gamaliel Calderon DO UA w/Reflex Cultureon 2019 Acetoacetic Acid,Ur Negative Normal NEG [facility] Comment on above: Performed By: #### U HCG, UAX, UMICAO #### [facility] Lab [address] [place] [address] Test Design Engineer: Gamaliel Calderon DO Bilirubin, SemiQt,Ur Presumptive positiv e. Unable to confirm due to unavailability of reagent. Abnormal NEG [facility] Comment on above: Performed By: #### U HCG, UAX, UMICAO #### [facility] Lab [address] [place] [address]. [place] [address] Test Design Engineer: Gamaliel Calderon DO Color (U) YELLOW Normal YEL [facility] Comment on above: Performed By: #### U HCG, UAX, UMICAO #### [facility] Lab [address] [place] [address] Test Design Engineer: Gamaliel Calderon DO Glucose Ql (U) Negative Normal NEG [facility] Comment on above: Performed By: #### U HCG, UAX, UMICAO #### [facility] Lab [address] [place] [address] Test Design Engineer: Gamaliel Calderon DO Hemoglobin, Ur Negative Normal NEG [facility] Comment on above: Performed By: #### U HCG, UAX, UMICAO #### [facility] Lab [address] [place] [address] Test Design Engineer: Gamaliel Calderon DO Leukocyte esterase Test strip Ql (U) Negative Normal NEG [facility] Comment on above: Performed By: #### U HCG, UAX, UMICAO #### [facility] Lab [address] [place] [address] Test Design Engineer: Gamaliel Calderon DO Nitrite,Ur Negative Normal NEG [facility] Comment on above: Performed By: #### U HCG, UAX, UMICAO #### [facility] Lab [address] [place] [address] Test Design Engineer: Gamaliel Calderon DO PH,Ur 5.5 Normal 5.0-8.0 [facility] Comment on above: Performed By: #### U HCG, UAX, UMICAO #### [facility] Lab [address] [place] [address] Test Design Engineer: Gamaliel Calderon DO Protein Ql (U) Negative Normal NEG [facility] Comment on above: Performed By: #### U HCG, UAX, UMICAO #### [facility] Lab [address] [facility] [place] [address] Test Design Engineer: Gamaliel Calderon DO Spec. [place] 1.028 Normal 1.000-1.030 [facility] Comment on above: Performed By: #### U HCG, UAX, UMICAO #### [facility] Lab [address] [facility] [place] [address] Test Design Engineer: Gamaliel Calderon DO Turbidity CLOUDY Abnormal CLEAR [facility] Comment on above: Performed By: #### U HCG, UAX, UMICAO #### [facility] Lab [address] [facility] [place] [address] Test Design Engineer: Gamaliel Calderon DO Urobilinogen,Ur Normal Normal NORM [facility] Comment on above: Performed By: #### U HCG, UAX, UMICAO #### [facility] Lab [address] [place] [address] Test Design Engineer: Gamaliel Calderon DO Comment NOT REPORTED Normal [facility] Comment on above: Performed By: #### U HCG, UAX, UMICAO #### [facility] Lab [facility] [place] [place] [address] Test Design Engineer: Gamaliel Calderon DO Urinalysis Reflex to Culture on 03-31-2020 Bilirubin Urine Presumptive positive . Unable to confirm due to unavailability of reagent. Abnormal NEGATIVE [facility]- [place], [place] Color, UA YELLOW YELLOW [facility]- [place], [place] Glucose, Ur Negative NEGATIVE [facility] Interpretation and review of laboratory results Abnormal [facility] Ketones Ql (U) Negative NEGATIVE [facility]- [place] Leukocyte esterase Test strip Ql (U) Negative NEGATIVE [facility] Nitrite, Urine Negative NEGATIVE [facility] [place] pH, UA 5.5 [facility]- [place] Protein (U) [Mass/Vol] Negative NEGATIVE [facility], [place] Specific [place], UA 1.028 [facility], [place] Turbidity UA CLOUDY Abnormal CLEAR [place], [place] Urinalysis Comments NOT REPORTED [facility] [place], [place] Urine Hgb Negative NEGATIVE [facility], [place] Urobilinogen, Urine Normal Normal [place] Urinalysis,Microon 0 ----- Normal [facility] Comment on above: Performed By: #### U HCG, UAX, UMICAO #### [facility] Lab [address] [place] [address] Test Design Engineer: Gamaliel Calderon DO Bacteria MODERATE Abnormal [facility] Comment on above: Performed By: #### U HCG, UAX, UMICAO #### [facility] Lab [address] [place] [address] Test Design Engineer: Gamaliel Calderon DO Epithelial cells LM Ql (Urine sed) 5 TO 10 Normal [facility] Comment on above: Performed By: #### U HCG, UAX, UMICAO #### [facility] Lab [address] [place] [address] Test Design Engineer: Gamaliel Calderon DO Urine RBC's 0 TO 2 Normal [facility] Comment on above: Performed By: #### U HCG, UAX, UMICAO #### [facility] Lab [address] [place] [address] Test Design Engineer: Gamaliel Calderon DO Urine WBC's 0 TO 2 Normal [facility] Comment on above: Performed By: #### U HCG, UAX, UMICAO #### [facility] Lab [address] [place] [address] Test Design Engineer: Gamaliel Calderon DO Amorphous sediment LM Ql (Urine sed) NOT REPORTED Normal [facility] Comment on above: Performed By: #### U HCG, UAX, UMICAO #### [facility] Lab [address] [facility] [place] [address] Test Design Engineer: Gamaliel Calderon DO Casts NOT REPORTED Normal [facility] Comment on above: Performed By: #### U HCG, UAX, UMICAO #### [facility] Lab [facility] [place] [facility] [place] [address] Test Design Engineer: Gamaliel Calderon DO Crystals LM Nom (Urine sed) NOT REPORTED Normal NONE [facility] Comment on above: Performed By: #### U HCG, UAX, UMICAO #### [facility] Lab [facility] [place] [place] [address] Test Design Engineer: Gamaliel Calderon DO Epithelial, Renal NOT REPORTED Normal 0 [facility] Comment on above: Performed By: #### U HCG, UAX, UMICAO #### [facility] Lab [facility] [place] [place] [address] Test Design Engineer: Gamaliel Calderon DO Mucus Strands NOT REPORTED Normal NONE [facility] Comment on above: Performed By: #### U HCG, UAX, UMICAO #### [facility] Lab [facility] [place] [place] [address] Test Design Engineer: Gamaliel Calderon DO Other Observations NOT REPORTED Normal NREQ [facility] Comment on above: Performed By: #### U HCG, UAX, UMICAO #### [facility] Lab [facility] [place] [place] [address] Test Design Engineer: Gamaliel Calderon DO Trichomonas NOT REPORTED Normal NONE [facility] Comment on above: Performed By: #### U HCG, UAX, UMICAO #### [facility] Lab [facility] [place] [place] [address] Test Design Engineer: Gamaliel Calderon DO Yeast NOT REPORTED Normal NONE [facility] Comment on above: Performed By: #### U HCG, UAX, UMICAO #### [facility] Lab [address] [place] [address] Test Design Engineer: Gamaliel Calderon DO XR CHEST PORTABLEon 03-31-20 [...] F Sanchez MD 03/31/20 Final result Normal [facility] Domingo, Mhpn Incoming Radiant Results From [employer] - 03/31/2020 1:07 PM EST EXAMINATION: ONE [...] grossly intact. IMPRESSION: No acute cardiopulmonary pathology. [facility] [place], [place] EXAMINATION: ONE XRA Y VIEW [...] structures and soft tissues are grossly intact. [place], [place] No acute cardiopulmonary pathology. [place], [place] Otheron 08-19-2019 Direct Exam Positive Abnormal [place] VAGINITIS DNA PROBEon 2019 Direct Exam Negative [place] Direct Exam Method of testing is a DNA probe intended for detection and identification of Otto species, Gardnerella vaginalis, and Trichomonas vaginalis nucleic acid in vaginal fluid specimens from patients with symptoms of vaginitis/vaginosis. [place] Interpretation and review of laboratory results Abnormal [place] Special Requests NOT REPORTED [place] Specimen Description .VAGINA [place] Vital Signs Date Time Vital Sign Value Performing Clinician Facility 09-27-2022 11:05-0400 Body temperature 98.6 [degF] Marvin Bartlett [facility] 09-27-2022 11:05-0400 bodymassindex -0.22 Marvin Bartlett [facility] Comment on above: Result Comment: ^~:!ZScore [facility] 09-27-2022 11:05-0400 Diastolic blood pressure 63 mm[Hg] Marvin Bartlett [facility] 09-27-2022 11:05-0400 Heart rate 80 /min Marvin Bartlett [facility] 09-27-2022 11:05-0400 Height/Length Percentile 45.55 Marvin Bartlett [facility] Comment on above: Result Comment: ^~:!Percentile Source -[facility] 09-27-2022 11:05-0400 Height/Length Z-Score -0.11 Marvin Bartlett [facility] Comment on above: Result Comment: ^~:![facility]Score [facility] 09-27-2022 11:05-0400 Respiratory rate 16 /min Marvin Bartlett [facility] 09-27-2022 11:05-0400 SaO2% (BldA) [Mass fraction] 98 % Marvin Bartlett [facility] 09-27-2022 11:05-0400 Systolic blood pressure 103 mm[Hg] Marvin Bartlett [facility] 09-27-2022 11:05-0400 weight -0.26 Marvin Bartlett [facility] Comment on above: Result Comment: ^~:!ZScore Source -[facility] 09-27-2022 11:05-0400 Weight Percentile 39.74 % Marvin Bartlett [facility] Comment on above: Result Comment: ^~:!Percentile Source -[facility] 04-10-2020 14:06-0500 Body Temperature 98.4 [degF] Vijay Pipette [facility], [place] 04-10-2020 14:06-0500 BP Diastolic 61 mm[Hg] Vijay Pipette [facility] [place] 04-10-2020 14:06-0500 BP Systolic 118 mm[Hg] Dunreith Pipette [facility] 04-10-2020 14:06-0500 Height 160 cm Dunreith Pipette [facility] [place] 04-10-2020 14:06-0500 Pulse (Heart Rate) 84 /min Dunreith Pipette [facility] [place] 04-10-2020 14:06-0500 Pulse Oximetry 99 % Vijay Pipette [facility], [place] 04-10-2020 14:06-0500 Respiratory Rate 20 /min Vijay Pipette [facility] [place] 03-31-2020 12:06-0500 BMI (Body Mass Index) 21.46 kg/m2 Vijay Pipette [facility], [place] 03-31-2020 12:06-0500 Body Temperature 98.2 [degF] Vijay Pipette [facility], [place] 03-31-2020 12:06-0500 Body weight 56.7 kg Vijay Garcia [facility], [place] 03-31-2020 12:06-0500 BP Diastolic 60 mm[Hg] Vijay Garcia [facility], [place] 03-31-2020 12:06-0500 BP Systolic 112 mm[Hg] Vijay Garcia [facility], [place] 03-31-2020 12:06-0500 Height 162.6 cm [facility] [place] 03-31-2020 12:06-0500 Pulse (Heart Rate) 80 /min Vijay Russell [facility], [place] 03-31-2020 12:06-0500 Pulse Oximetry 99 % Vijay Russell [facility], [place] 03-31-2020 12:06-0500 Respiratory Rate 14 /min [facility] [place] [place] Encounters Encounter Date Encounter Type Care Provider Facility Start: 07-23-2023 End: 07-23-2023 ambulatory PAPI TREVON Not Available Start: 06-11-2023 End: 06-11-2023 ambulatory SHIVAM BLACK Not Available Start: 05-14-2023 End: 05-14-2023 ambulatory PAPI TREVON Not Available Start: 04-12-2023 End: 04-12-2023 ambulatory PAPI TREVON Not Available Start: 09-27-2022 End: 09-27-2022 Emergency department patient visit Marvin Bartlett Facility:[facility] Start: 09-27-2022 End: 09-27-2022 Emergency department patient visit Marvin Bartlett [facility] Start: 07-10-2022 End: 07-10-[address] KACIE HTOMAS . Facility:[facility] Start: 03-28-2022 End: 03-28-[address] KACIE THOMAS . Facility:[facility] Start: 03-19-2022 End: 03-19-[address] SHAHEEN KUMAR Facility:[facility] Start: 01-16-2022 End: 01-17-2022 ambulatory ROULA NORTON [facility] Start: 01-16-2022 End: 01-16-2022 Subsequent hospital visit by physician Roland Kraus MD Work Phone: [facility] [place] [facility] Comment on above: Acute vaginitis Start: 03-18-2021 End: 03-19-2021 ambulatory RICKY ALBERT [facility] Start: 03-04-2021 End: 03-05-2021 ambulatory ROLAND KRAUS [facility] Start: 12-07-2020 End: 12-07-2020 Emergency department patient visit [facility] Start: 09-14-2020 End: 09-14-2020 Subsequent hospital visit by physician Rosalinda [facility] Comment on above: Screen for STD (sexu ally transmitted disease); Vaginal discharge Start: 04-27-2020 End: 04-30-2020 ambulatory [facility] Start: 04-27-2020 End: 04-29-2020 Subsequent hospital visit by physician [facility] Ultrasound Rm 105 [facility] Comment on above: Well adolescent visi t Abdominal pain, supr apubic; Cyst of ovary, unspecified laterality Start: 04-14-2020 End: 04-14-2020 Subsequent hospital visit by physician Rosalinda [facility] Comment on above: Abdominal pain, supr apubic Start: 04-10-2020 End: 04-10-2020 Emergency department patient visit [facility] Start: 04-10-2020 End: 04-10-2020 Emergency department patient visit Vijay Russell Work Phone: [facility] Comment on above: Right lower quadrant abdominal pain (Primary Dx); Acute cystitis with hematuria Start: 03-31-2020 End: 03-31-2020 Emergency department patient visit Vijay Russell Work Phone: [facility] Comment on above: Urticaria (Primary D x); Viral URI with cough Start: 03-28-2020 End: 03-28-2020 Emergency department patient visit DANELLE SALDAÑA Facility:[facility] Start: 08-19-2019 End: 08-19-2019 Subsequent hospital visit by physician Rosalinda [facility] Comment on above: Unprotected sexual i ntercourse Procedures Date Procedure Procedure Detail Performing Clinician Start: 01-16-2022 Iadna otto specie s direct probe tq Roula Norton [employer] Work Phone: Start: 04-27-2020 Us pelvic nonobstetr ic real-time image complete Rosalinda Nj Lilia Start: 04-27-2020 Antibody hiv-1&hiv-2 single result Rosalinda Nj Lilia Work Phone: Start: 04-14-2020 Urinalysis microscopic only Rosalinda Nj Lilia Work Phone: Start: 04-14-2020 Urnls dip stick/tabl et rgnt auto w/o microscopy Rosalinda Nj Lilia Work Phone: Start: 04-10-2020 Iadna otto specie s direct probe tq Vijay Russell Work Phone: Start: 04-10-2020 Ct abdomen & pelvis w/contrast material Vijay Russell Work Phone: Start: 04-10-2020 Urinalysis microscopic only Vijay Russell Work Phone: Start: 04-10-2020 Urnls dip stick/tabl et rgnt auto w/o microscopy Vijay Russell Work Phone: Start: 04-10-2020 Assay of lipase Vijay Russell Work Phone: Start: 04-10-2020 Assay of magnesium Natalya Dos Santos Betty Work Phone: Start: 04-10-2020 Blood count complete auto&auto difrntl wbc Vijay Russell Work Phone: Start: 04-10-2020 Comprehensive metabo lic panel Vijay Russell Work Phone: Start: 04-10-2020 Gonadotropin chorion ic qualitative Vijay Russell Work Phone: Start: 03-31-2020 Radiologic exam ches t single view ROSALINDA RODRIGUES Start: 03-31-2020 Iaadiadoo streptococ cus group a ROSALINDAMARTIN RODRIGUES Start: 03-31-2020 Urnls dip stick/tabl et rgnt auto w/o microscopy ROSALINDA RODRIGUES Start: 03-31-2020 Radiologic exam ches t single view Ilene Nj [employer] Work Phone: Start: 03-31-2020 Iaadiadoo streptococ cus group a Ilene Nj [employer] Work Phone: Start: 03-31-2020 Urinalysis microscopic only Ilene Nj [employer] Work Phone: Start: 03-31-2020 Urine test visual color cmprsn meths Ilene Nj [employer] Work Phone: Start: 03-31-2020 Urnls dip stick/tabl et rgnt auto w/o microscopy Ilene Nj [employer] Work Phone: Start: 08-19-2019 Iadna otto specie s direct probe tq Roula Norton Work Phone: Plan of Treatment Date Care Activity Detail Author Start: 05-31-2026 DTaP/Tdap/Td vaccine (7 - Td or Tdap) DTaP/Tdap/Td vaccine (7 - Td or Tdap) [facility] Start: 05-31-2026 DTaP/Tdap/Td vaccine (7 - Td) DTaP/Tdap/Td vaccine (7 - Td) [place] Start: 01-16-2023 Depression Screen Depression Screen [facility] Start: 01-16-2023 Screening for Chlamy luz trachomatis Chlamydia/GC screen [facility] Start: 02-13-2022 End: 02-13-2022 Patient encounter procedure 02/13/2022 Office Visit Obstetrics and Gynecology Roula Norton, [employer] [address] [place] [address] [facility] [employer] Start: 11-07-2021 Influenza vaccination Flu vaccine (# 1) [facility] Start: 06-06-2021 Hepatitis C screening Hepatitis C sc reen [facility] Start: 04-10-2021 Screening for Chlamy luz trachomatis Chlamydia screen [place], [place] Start: 12-08-2020 Influenza vaccination Flu vacc ine (Season Ended) [facility] Work Phone: Start: 08-18-2020 Screening for Chlamy luz trachomatis Chlamydia screen [place] Start: 07-22-2020 End: 07-22-2020 Nurse Only 07/22/2020 Nurse Only Obstetrics and Gynecology [facility] Start: 04-29-2020 End: 04-29-2020 Office Visit 04/29/2020 Office Visit Obstetrics and Gynecology Roula Norton, DOLL WIG MAKER - LEAD SYSTEMS DEVELOPER [address] [place] [address] [phone] [facility] Start: 04-22-2020 End: 04-22-2020 Nurse Only 04/22/2020 Nurse Only Obstetrics and Gynecology [facility] Start: 04-12-2020 End: 04-12-2020 Office Visit 04/12/2020 Office Visit Pediatrics Rosalinda Rodrigues, DOLL WIG MAKER - LEAD SYSTEMS DEVELOPER [address] [place] [address] [facility] Start: 12-09-2019 Influenza vaccination [place], [place] Start: 11-04-2019 End: 11-04-2019 Nurse Only 11/04/2019 Nurse Only Obstetrics and Gynecology [facility] Start: 2019 Meningococcal (ACWY) vaccine (2 - 2-dose series) Meningococcal (ACWY) vaccine (2 - 2-dose series) [place], [place] Start: 2019 Screening for Chlamy luz trachomatis Chlamydia screen [place], [place] Start: 06-06-2018 HIV screening HIV screen [place], [place] Start: 2015 COVID-19 Vaccine (1) COVID-19 Vaccin e (1) [employer] Phone: Start: 2003 COVID-19 Vaccine (#1) COVID-19 Vacci ne (#1) LETI SERRANO [facility] [employer] End: 08-19-2019 C.trachomatis N.gonorrhoeae DNA C.trachomatis N.gonorrhoeae DNA Microbiology Routine Unprotected sexual intercourse 1 Occurrences starting 08/19/2019 until 08/19/2019 [place] Comment on above: 1 Occurrences starti ng 08/19/2019 until 08/19/2019 C.trachomatis N.gonorrhoeae DNA [place] End: 04-10-2020 C.trachomatis N.gonorrhoeae DNA C.trachomatis N.gonorrhoeae DNA Microbiology STAT One Time for 1 Occurrences starting 04/10/2020 until 04/10/2020 [place] Comment on above: One Time for 1 Occur rences starting 04/10/2020 until 04/10/2020 End: 09-14-2020 C.trachomatis N.gonorrhoeae DNA C.trachomatis N.gonorrhoeae DNA Microbiology Routine Screen for STD (sexually transmitted disease) Vaginal discharge 1 Occurrences starting 09/14/2020 until 09/14/[facility] Comment on above: 1 Occurrences starti ng 09/14/2020 until 09/14/2020 End: 04-14-2020 Culture, Urine Culture, Urine Microbiology Routine Abdominal pain, suprapubic 1 Occurrences starting 04/14/2020 until 04/14/2020 [place] Comment on above: 1 Occurrences starti ng 04/14/2020 until 04/14/2020 Culture, Urine Culture, Urine Microbiology Routine Abdominal pain, suprapubic 04/14/2020 8:53 PM EST [place] End: 03-31-2020 Strep A DNA probe, amplification Strep A DNA probe, amplification Lab Routine Once for 1 Occurrences starting 03/31/2020 until 03/31/2020 [place] Comment on above: Once for 1 Occurrenc es starting 03/31/2020 until 03/31/2020 Strep A DNA probe, amplification Strep A DNA probe, amplification Lab Routine 03/31/2020 12:18 PM EST [place] End: 09-14-2020 VAGINITIS DNA PROBE VAGINITIS DNA PROBE Microbiology Routine Screen for STD (sexually transmitted disease) Vaginal discharge 1 Occurrences starting 09/14/2020 until 09/14/2020 [facility] [employer] Phone: Comment on above: 1 Occurrences starti ng 09/14/2020 until 09/14/2020 VAGINITIS DNA PROBE VAGINITIS DN A PROBE Microbiology Routine Screen for STD (sexually transmitted disease) Vaginal discharge 09/14/2020 12:03 AM EDT [facility] Work Phone: Immunizations Immunization Date Immunization Notes Care Provider Fa mary ann 03-04-2021 influenza, injectabl e, quadrivalent, preservative free Roland Kraus MD Work Phone: [facility] Work Phone: 04-14-2020 meningococcal B vacc ine, recombinant, OMV, adjuvanted [place], [place] 04-14-2020 meningococcal oligosaccharide (groups A, C, Y and W-135) diphtheria toxoid conjugate vaccine (MCV4O) [facility] 10-23-2017 hepatitis A vaccine, pediatric/adolescent dosage, 2 dose schedule [facility] 03-05-2017 influenza, injectabl e, quadrivalent, preservative free [facility] 12-26-2016 hepatitis A vaccine, pediatric/adolescent dosage, 2 dose schedule [place], [place] 12-26-2016 Human Papillomavirus 9-valent vaccine [facility] 05-31-2016 human papilloma viru s vaccine, quadrivalent [place] 05-31-2016 meningococcal polysaccharide (groups A, C, Y and W-135) diphtheria toxoid conjugate vaccine (MCV4P) [place] 05-31-2016 tetanus toxoid, redu ginna diphtheria toxoid, and acellular pertussis vaccine, adsorbed [facility], [place] 05-31-2016 meningococcal vaccin e of unknown formulation and unknown serogroups [facility] 11-26-2008 diphtheria, tetanus toxoids and acellular pertussis vaccine [facility] 11-26-2008 measles, mumps and rubella virus vaccine [facility] 11-26-2008 poliovirus vaccine, inactivated [facility] 11-26-2008 varicella virus vaccine [facility] 08-09-2006 diphtheria, tetanus toxoids and acellular pertussis vaccine [facility] 12-05-2005 diphtheria, tetanus toxoids and acellular pertussis vaccine [facility] 12-05-2005 Hepatitis B Ped/Adol (Recombivax HB) [facility] 12-05-2005 measles, mumps and rubella virus vaccine [facility] 12-05-2005 poliovirus vaccine, inactivated [facility] 12-05-2005 varicella virus vaccine [facility] 05-24-2004 diphtheria, tetanus toxoids and acellular pertussis vaccine [facility] 05-24-2004 Hepatitis B Ped/Adol (Recombivax HB) [facility] 05-24-2004 poliovirus vaccine, inactivated [facility], [place] 2003 diphtheria, tetanus toxoids and acellular pertussis vaccine [facility] 2003 poliovirus vaccine, inactivated [facility], [place] 2003 Hepatitis B Ped/Adol (Recombivax HB) [facility] Payers Date Payer Category Payer Private Health Insurance [id number] 2019 Unknown [facility] MEDICA[facility] xxxxxxxxxxx 2019-Present [phone] CLAIMS DEPARTMENT [address] [place] [address] xxxxxxxxxxx [id number] 2003 Unknown [id number] 2.16.840.1.240795.3.579.2. 175 2003 Unknown [id number] 2.16.840.1.390986.3.579.2. 593 2003 Unknown [id number] 2.16.840.1.653680.3.579.2. 593 2003 Unknown [id number] 2.16.840.1.564452.3.579.2. 593 2003 Unknown [id number] 2.16.840.1.996768.3.579.2. 727 2003 Unknown [id number] 2.16.840.1.147434.3.579.2. 1259 2003 Unknown [id number] 2.16.840.1.720752.3.579.2. 1259 2003 Unknown [id number] 2.16.840.1.068599.3.579.2. 1259 2003 Unknown [id number] 2.16.840.1.381151.3.579.2. 1259 1984 Unknown [id number] 2.16.840.1.042407.3.579.2. 647 1982 Unknown [id number] 2.16.840.1.240709.3.579.2. 176 1982 Unknown [id number] 2.16.840.1.916500.3.579.2. 176 1982 Unknown [id number] 2.16.840.1.335914.3.579.2. 176 1982 Unknown [id number] 2.16.840.1.592611.3.579.2. 176 1982 Unknown [id number] 2.16.840.1.856767.3.579.2. 176 1982 Unknown [id number] 2.16.840.1.512495.3.579.2. 175 1982 Unknown [id number] 2.16.840.1.287652.3.579.2. 175 1959 Unknown [id number] 1.2.840.328842.1.13.239.2. 7.3.805153.315 1959 Unknown [id number] Social History Date Type Detail Facility Start: 08-19-2019 End: 01-16-2022 Tobacco smoking status NHIS Never smoker [facility] [employer] Start: 08-19-2019 End: 01-16-2022 Alcohol intake Current non-drinker of alcohol (finding) [place], [place] Start: 2003 Sex Assigned At Not on file [place] Exposure to SARS-CoV -2 (event) Unable to assess [place] Start: 03-31-2020 End: 01-16-2022 Tobacco use and exposure Never used [place], [place] Exposure to SARS-CoV -2 (event) Not sure [place] Start: 04-29-2020 History SDOH Financial 5 [place], [place] Start: 04-29-2020 History SDOH Food Worry 1 [place] Start: 04-29-2020 History SDOH Transpo rt Med 2 [place] History of tobacco use Passive smoker [facility] [employer] Work Phone: Tobacco smoking status No Smokin g Status Entered [facility] Sex Assigned At Female [facility] Functional Status Date Assessment Result Facility 09-27-2022 Functional Status N/A [facility] Hospital Discharge instructions 09-27-2022 Note Date & Type Note Facility 09-27-2022 Hospital Discharg e instructions Patient Education 09/27/2022 11:39:36 Contact Dermatitis, Ydwj-[id number] Contact Dermatitis Dermatitis is redness, soreness, and [...] as poison joaquin. What are the causes? Common causes of [...] perfumes, and dyes. Medicines Take or apply [id number] and prescription medicines only as told by [...] and water are not available, use hand corrosion prevention metal sprayer. General instructions Avoid the things that caused [...] provider. Document Revised: 01/09/2022 Document Reviewed: 01/09/2022 [employer] Patient Education 2022 [email or web address] Follow Up Care 09/27/2022 11:01:54 With:Anaid LUTZ Address: [address] [place] [address] [address] [place] [address]- Business (1) When:09/30/2022 11:28:16 Comments:Follow-up with your primary care provider in 3 to 5 days. If symptoms worsen, do not improve, or new symptoms arise please report back to emergency department for further evaluation. [facility] Evaluation + Plan note Note Date & Type Note Facility Evaluation + Plan note No data available for this section [facility] Evaluation note Note Date & Type Note Facility Evaluation note Diagnosis Screen for STD (sexually transmitted disease) Screening examination for venereal disease Vaginal discharge Leukorrhea, not specified as infective documented in this encounter [employer] Phone: Evaluation note Note Date & Type Note Facility Evaluation note Diagnosis Acute vaginitis Vaginitis and vulvovaginitis, unspecified documented in this encounter LETI SERRANO [employer] Phone: Progress note Note Date & Type Note Facility Progress note No data available for this section [facility] Assessments Diagnosis Unprotected sexual intercourse Problems related [...] FoundDocuments on File Type Date Recorded Patient Hatchery Manager Expl anation Advance Directives and Living Will Power of Lecturer Of Portuguese Documents on File Type Date Recorded Patient Hatchery Manager Expl anation ACP-Advance Directive ACP-Power of Lecturer Of Portuguese Documents on File Type Date Recorded Patient Hatchery Manager Expl anation ACP-Advance Directive ACP-Power of Lecturer Of Portuguese Healthcare Agents on File Name Relationship Healthcare Agent [facility] Communication Sonia Freeman Parent Primary Decision Maker Discharge Instructions * Instructions* Ilene Tapia PA-C - 03/31/2020 If you develop fever, worsening abd pain, right lower abdominal pain, vaginal bleeding/ discharge, chest pain, vomiting please return to ED. Recommend outpatient COVID test. * Attachments The following attachments cannot be sent through Care Everywhere. * URI (Upper Respiratory Infection): Pediatric (Khmer) * Urticaria: Teen (Khmer) documented in this encounter* Attachments The following attachments cannot be sent through Care Everywhere. * UTI (Urinary Tract Infection): Female: Teen (Khmer) * Abdominal Pain: Pediatric (Khmer) documented in this encounter Reason for Referral Status Reason Specialty Diagnoses / Procedures Referre d By Contact Referred To Contact Closed Radiology Diagnoses Abdominal pain, suprapubic Cyst of ovary, unspecified laterality Procedures US PELVIS COMPLETE US PELVIS LIMITED Rosalinda Rodrigues, DOLL WIG MAKER - LEAD SYSTEMS DEVELOPER [address] [place] [address] Summary Purpose Family History No Family History [...] PELVIS COMPLETE US PELVIS LIMITED Rosalinda Rodrigues, DOLL WIG MAKER - LEAD SYSTEMS DEVELOPER [address] [place] [address] Ordered Prescriptions (unrec ognized section and content) [...] section and content) DATE CREATED AUTHOR 06/17/2020 [facility] DATE CREATED AUTHOR AUTHOR'S ORGANIZ ATION 12/08/2020 [facility] DATE CREATED AUTHOR AUTHOR'S ORGANIZ ATION 01/18/2022 [facility] DATE CREATED AUTHOR AUTHOR'S ORGANIZ ATION 07/15/2022 [facility] DATE CREATED AUTHOR AUTHOR'S ORGANIZ ATION 10/08/2022 [facility] DATE CREATED AUTHOR AUTHOR'S ORGANIZ ATION 07/23/2023 [facility] dical Specialists [employer] Care Teams (unrecognized sec tion and content) Inspector Metal Can Relationship Specialty Start Date End Date Roland Kraus MD [address] [place] [address] PCP - General Pediatrics 03/04/21 FOR RECORDS [...] BE BASED ON THE PRIMARY CLINICAL RECORDS. [facility] [employer] [facility]. provides no warranty or guarantee of the accuracy or completeness of information in this document.
[2023-08-20 12:15] LABS: Basophils Percent Auto 0.1 % (0.2-2.0); Eosinophils Absolute Auto 0.1 10^3/uL (0.0-0.7); Eosinophils Percent Auto 0.6 % (0.9-7.0); Hematocrit 30.6 % (36.0-48.0); Hemoglobin 9.7 g/dL (12.0-16.0); Immature Granulocytes Abs Auto 0.02 10^3/uL (0.00-0.03); Immature Granulocytes Pct Auto 0.3 % (0.0-0.5); Lymphocytes Absolute Auto 1.6 10^3/uL (1.2-3.8); Lymphocytes Percent Auto 20.4 % (20.5-60.0); Mean Corpuscular HGB Conc 31.7 g/dL (29.9-35.2); Mean Corpuscular Hemoglobin 30.3 pg (26.7-34.0); Mean Corpuscular Volume 95.6 fL (81.0-99.0); Mean Platelet Volume 9.5 fL (9.5-13.5); Monocytes Absolute Auto 0.4 10^3/uL (0.3-0.8); Monocytes Percent Auto 4.7 % (1.7-12.0); Neutrophils Absolute Auto 5.8 10^3/uL (1.4-6.5); Neutrophils Percent Auto 73.9 % (43.0-75.0); Platelet Count 287 10^3/uL (150-450); Red Cell Distribution Width 11.5 % (11.0-15.0); White Blood Count 7.8 10^3/uL (4.0-11.0)
[2023-08-20 13:43] LABS: Glucose 1 Hour 130 mg/dL (<130)
== END 2023-08-20 11:00 | disposition home or self-care (01) ==
LOC: LAB 10:59
PROVIDERS: Visit Provider Obstetrics & Gynecology
DX: Z13.1 Encounter for screening for diabetes mellitus (principal)
CPT/HCPCS: 36415; 82950; 85025

== ENCOUNTER 2023-09-19 08:35 | Outpatient (OUT) | payer OTHER, SELFPAY ==
--- NOTE | 2023-09-19 08:37 | US_ITS ---
[address] [address] Patient Name: YVON SYED MRN: [id number] date: 2005 Sex: F Assigned Patient Location: [facility] Current Patient Location: [facility] Accession/Order Number: [id number] Exam Date: 09/19/2023 08:38 Report Date: 09/19/2023 09:33 At the request of: PAPI LESTER Procedure: US OB growth EXAMINATION: US OB growth HISTORY: SIZE INCONSISTENT WITH DATES COMPARISON: No relevant comparison available. FINDINGS: Heart Rate: 146.0 bpm Amniotic Fluid Volume: 15.1 cm Number: 1.0 Position: Cephalic presentation, longitudinal lie Maximum Vertical Pocket: 4.0 cm cm 4.8 cm cm 3.8 cm cm 2.5 cm cm BIOMETRY: BPD: 8.4 cm cm; 33 weeks 6 days; 84% HC: 30.2 cmcm; 33 weeks 4 days , 45% AC: 30.2 cm cm; 34 weeks 1 days, 93% FL: 6.6 cm cm; 34 weeks 0 days; 80.5 % % EFW: 2327.7 grams, 5 lbs. 2 oz., 89% FL/AC: 21.8 FL/BPD: 78.5 HC/AC: 1.0 GESTATIONAL AGE: Age by EDC: 32 weeks 2 days ROB by EDC: 11/12/2023 Age by US: 33 weeks 6 days ROB by US: 11/01/2023 US/US OB growth IMPRESSION: Normal interval growth Electronically authenticated by: CHARLES BONDS Date: 09/19/2023 09:33
--- OUTSIDE RECORDS SUMMARY | 2023-09-19 08:51 | XMS_ITS ---
Patient Summarization (C-CDA 2.1 CCD) Created on: September 19, 2023 YVON STAFFORD~NYDIA YVON : 2005 Sex: Female Author Organization Sample organization Care Team Providers Care Import Export Coordinator Name Role Phone Rosalinda Sargent Primary Care Provider DANELLE SALDAÑA Primary Care Unavailable SELF, REFERRED Referring Unavailable RONNY ARAUJO Attending Unavailable URIAH LEUNG Admitting Unavailable Rosetta NURSING UNIT CLERK - MANAGER BALANCE, Rosalinda C Primary Care Provi rashaad Unavailable ROSETTA, ROSALINDA C Primary Care Unavailable DONATO RUSSELL Attending Unavailable ROSETTA, ROSALINDA C Primary Care Unavailable DONATO RUSSELL Attending Unavailable ROSETTA, ROSALINDA C Referring Unavailable ROSETTA, ROSALINDA C Primary Care Unavailable ROSETTA, ROSALINDA C Referring Unavailable ROSETTA, ROSALINDA C Primary Care Unavailable ROSETTA, ROSALINDA C Primary Care Unavailable SHIVA BAILEY Attending Unavailable Dayanara HARRELL, Roland Primary Care Provider RICKY ALBERT Referring Unavailable ROLAND KRAUS Primary Care Unavailabl ROLAND Sanchez Referring Unavailabl e ROLAND KRAUS Primary Care Unavailabl e ROULA NORTON Referring Unavailable ROLAND KRAUS Primary Care Unavailivory [...] Unavailabl e NONE, XXXX Primary Care Physician UnavailMarvin Wilcox Attending Unavailable TREVON, PAPI Attending Unavailable SOFIA, SHIVAM Attending Unavailable TREVON, PAPI Attending Unavailable SOFIA, SHIVAM Attending Unavailable TREVON, PAPI Attending Unavailable Encounters Encounter Date Encounter Type Care Provider Facility Start: 09-05-2023 End: 09-05-2023 ambulatory PPAI TREVON Not Available Start: 08-20-2023 End: 08-20-2023 ambulatory SHIVAM SOFIA Not Available Start: 07-23-2023 End: 07-23-2023 ambulatory PAPI TREVON Not Available Start: 06-11-2023 End: 06-11-2023 ambulatory SHIVAM SOFIA Not Available Start: 05-14-2023 End: 05-14-2023 ambulatory PAPI TREVON Not Available Start: 04-12-2023 End: 04-12-2023 ambulatory PAPI TREVON Not Available Start: 09-27-2022 End: 09-27-2022 Emergency department patient visit Marvin Bartlett [place] Start: 09-27-2022 End: 09-27-2022 Emergency department patient visit Marvin Bartlett [facility] [place] Start: 07-10-2022 End: 07-10-[address] KACIE THOMAS . Facility: Start: 03-28-2022 End: 03-28-[address] KACIE THOMAS . Facility:[facility] Start: 03-19-2022 End: 03-19-[address] SHAHEEN KUMAR Facility:[facility] Start: 01-16-2022 End: 01-17-2022 ambulatory ROULARg NORTON [facility] Start: 01-16-2022 End: 01-16-2022 Subsequent hospital visit by physician Roland Kraus MD Work Phone: [facility] Comment on above: Acute vaginitis Start: 03-18-2021 End: 03-19-2021 ambulatory RICKY ALBERT [facility] Start: 03-04-2021 End: 03-05-2021 ambulatory ROLAND KRAUS [facility] Start: 12-07-2020 End: 12-07-2020 Emergency department patient visit ROSALINDA Nj [facility] Start: 09-14-2020 End: 09-14-2020 Subsequent hospital visit by physician Rosalinda Sargent APRN - [facility] [place] [facility] Comment on above: Screen for STD (sexu ally transmitted disease); Vaginal discharge Start: 04-27-2020 End: 04-30-2020 ambulatory [facility] Start: 04-27-2020 End: 04-29-2020 Subsequent hospital visit by physician [facility] Rm [facility] Comment on above: Well adolescent visi t Abdominal pain, supr apubic; Cyst of ovary, unspecified laterality Start: 04-14-2020 End: 04-14-2020 Subsequent hospital visit by physician Rosalinda [facility] Comment on above: Abdominal pain, supr apubic Start: 04-10-2020 End: 04-10-2020 Emergency department patient visit [facility] Start: 04-10-2020 End: 04-10-2020 Emergency department patient visit Donato Raya Russell Work Phone: [facility] Comment on above: Right lower quadrant abdominal pain (Primary Dx); Acute cystitis with hematuria Start: 03-31-2020 End: 03-31-2020 Emergency department patient visit Donato Russell Work Phone: [facility] Comment on above: Urticaria (Primary D x); Viral URI with cough Start: 03-28-2020 End: 03-28-2020 Emergency department patient visit DANELLE SALDAÑA Facility:[facility] Start: 08-19-2019 End: 08-19-2019 Subsequent hospital visit by physician Rosalinda [facility] Comment on above: Unprotected sexual i ntercourse Immunizations Immunization Date Immunization Notes Care Provider [facility] 03-04-2021 influenza, injectabl e, quadrivalent, preservative free Roland Kraus MD Work Phone: [facility] Work Phone: 04-14-2020 meningococcal B vacc ine, recombinant, OMV, adjuvanted [facility], [place] 04-14-2020 meningococcal oligosaccharide (groups A, C, Y and W-135) diphtheria toxoid conjugate vaccine (MCV4O) [facility] 10-23-2017 hepatitis A vaccine, pediatric/adolescent dosage, 2 dose schedule [facility] 03-05-2017 influenza, injectabl e, quadrivalent, preservative free [facility] 12-26-2016 hepatitis A vaccine, pediatric/adolescent dosage, 2 dose schedule [place], [place] 12-26-2016 Human Papillomavirus 9-valent vaccine [facility] 05-31-2016 human papilloma viru s vaccine, quadrivalent [facility], [place] 05-31-2016 meningococcal polysaccharide (groups A, C, Y and W-135) diphtheria toxoid conjugate vaccine (MCV4P) [facility] 05-31-2016 tetanus toxoid, redu ginna diphtheria toxoid, and acellular pertussis vaccine, adsorbed [facility] 05-31-2016 meningococcal vaccin e of unknown formulation and unknown serogroups [facility] 11-26-2008 diphtheria, tetanus toxoids and acellular pertussis vaccine [facility] 11-26-2008 measles, mumps and rubella virus vaccine [facility] 11-26-2008 poliovirus vaccine, inactivated [facility] 11-26-2008 varicella virus vaccine [facility], [place] 08-09-2006 diphtheria, tetanus toxoids and acellular pertussis vaccine [facility] 12-05-2005 diphtheria, tetanus toxoids and acellular pertussis vaccine [facility] 12-05-2005 Hepatitis B Ped/Adol (Recombivax HB) [facility] 12-05-2005 measles, mumps and rubella virus vaccine [facility] 12-05-2005 poliovirus vaccine, inactivated [facility] 12-05-2005 varicella virus vaccine [facility], [place] 05-24-2004 diphtheria, tetanus toxoids and acellular pertussis vaccine [facility] 05-24-2004 Hepatitis B Ped/Adol (Recombivax HB) [facility] 05-24-2004 poliovirus vaccine, inactivated [facility] 2003 diphtheria, tetanus toxoids and acellular pertussis vaccine [facility] 2003 poliovirus vaccine, inactivated [facility], [place] 2003 Hepatitis B Ped/Adol (Recombivax HB) [facility] Medications Current Medications Medication Drug Class(es) Dates Sig (Normalized) Sig (Original) acetaminophen 500 mg oral tablet (3 sources) Start: 04-10-2020 take 1 tablet by mouth every six hours as needed for pain acetaminophen (TYLENOL) 500 MG tablet Take 1 tablet by mouth every 6 hours as needed for Pain 60 tablet 0 04/10/2020 Active [id number] 200 actuat albuterol 0.09 mg/actuat metered dose [...] Ordered docusate sodium 50 mg / sennosides, detention 8.6 mg oral tablet (3 sources) Start: [...] Refills(s) 0 Start Date: 09/27/22 Status: Ordered Payers Date Payer Category Payer Private Health Insurance [id number] 2019 Unknown [facility] MEDICAID xxxxxxxxxxx 2019-Present [phone] CLAIMS DEPARTMENT [address] [place] [address] xxxxxxxxxxx [id number] 2003 Unknown [id number] 2.16.840.1.618701.3.579.2. 175 2003 Unknown [id number] 2.16.840.1.990127.3.579.2. 593 2003 Unknown [id number] 2.16.840.1.787683.3.579.2. 593 2003 Unknown [id number] 2.16.840.1.273199.3.579.2. 593 2003 Unknown [id number] 2.16.840.1.269266.3.579.2. 727 2003 Unknown [id number] 2.16.840.1.333591.3.579.2. 1259 2003 Unknown [id number] 2.16.840.1.162993.3.579.2. 1259 2003 Unknown [id number] 2.16.840.1.944256.3.579.2. 1259 2003 Unknown [id number] 2.16.840.1.127709.3.579.2. 1259 2003 Unknown [id number] 2.16.840.1.533124.3.579.2. 1259 2003 Unknown [id number] 2.16.840.1.171256.3.579.2. 1259 1984 Unknown [id number] 2.16.840.1.488686.3.579.2. 647 1982 Unknown [id number] 2.16.840.1.842703.3.579.2. 176 1982 Unknown [id number] 2.16.840.1.895928.3.579.2. 176 1982 Unknown [id number] 2.16.840.1.679989.3.579.2. 176 1982 Unknown [id number] 2.16.840.1.974136.3.579.2. 176 1982 Unknown [id number] 2.16.840.1.033543.3.579.2. 176 1982 Unknown [id number] 2.16.840.1.808469.3.579.2. 175 1982 Unknown [id number] 2.16.840.1.527734.3.579.2. 175 1959 Unknown [id number] 1.2.840.832757.1.13.239.2. 7.3.880053.315 1959 Unknown [id number] Plan of Treatment Date Care Activity Detail Author Start: 05-31-2026 DTaP/Tdap/Td vaccine (7 - Td or Tdap) DTaP/Tdap/Td vaccine (7 - Td or Tdap) [facility] Start: 05-31-2026 DTaP/Tdap/Td vaccine (7 - Td) DTaP/Tdap/Td vaccine (7 - Td) [place] Start: 01-16-2023 Depression Screen Depression Screen [facility] Start: 01-16-2023 Screening for Chlamy luz trachomatis Chlamydia/GC screen [facility] Start: 02-13-2022 End: 02-13-2022 Patient encounter procedure 02/13/2022 Office Visit Obstetrics and Gynecology Roula Norton, NURSING UNIT CLERK - MANAGER BALANCE [address] [place] [address] [facility] Start: 11-07-2021 Influenza vaccination Flu vaccine (# 1) [facility] Start: 06-06-2021 Hepatitis C screening Hepatitis C sc reen [facility] Start: 04-10-2021 Screening for Chlamy luz trachomatis Chlamydia screen [place], [place] Start: 12-08-2020 Influenza vaccination Flu vacc ine (Season Ended) [facility] Work Phone: Start: 08-18-2020 Screening for Chlamy luz trachomatis Chlamydia screen [place] Start: 07-22-2020 End: 07-22-2020 Nurse Only 07/22/2020 Nurse Only Obstetrics and Gynecology [facility] Start: 04-29-2020 End: 04-29-2020 Office Visit 04/29/2020 Office Visit Obstetrics and Gynecology Roula Norton, NURSING UNIT CLERK - MANAGER BALANCE [address] [place] [address] [phone] [facility] Start: 04-22-2020 End: 04-22-2020 Nurse Only 04/22/2020 Nurse Only Obstetrics and Gynecology [facility] Start: 04-12-2020 End: 04-12-2020 Office Visit 04/12/2020 Office Visit Pediatrics Rosalinda Sargent, NURSING UNIT CLERK - MANAGER BALANCE [address] [place] [address] [facility] Start: 12-09-2019 Influenza vaccination [place], [place] Start: 11-04-2019 End: 11-04-2019 Nurse Only 11/04/2019 Nurse Only Obstetrics and Gynecology [facility] Start: 2019 Meningococcal (ACWY) vaccine (2 - 2-dose series) Meningococcal (ACWY) vaccine (2 - 2-dose series) [place] Start: 2019 Screening for Chlamy luz trachomatis Chlamydia screen [place] Start: 06-06-2018 HIV screening HIV screen [place], [place] Start: 2015 COVID-19 Vaccine (1) COVID-19 Vaccin e (1) [facility] Phone: Start: 2003 COVID-19 Vaccine (#1) COVID-19 Vacci ne (#1) LETI SERRANO [facility] Perfect Audience End: 08-19-2019 C.trachomatis N.gonorrhoeae DNA C.trachomatis N.gonorrhoeae DNA Microbiology Routine Unprotected sexual intercourse 1 Occurrences starting 08/19/2019 until 08/19/2019 [place] Comment on above: 1 Occurrences starti ng 08/19/2019 until 08/19/2019 C.trachomatis N.gonorrhoeae DNA [place] End: 04-10-2020 C.trachomatis N.gonorrhoeae DNA C.trachomatis N.gonorrhoeae DNA Microbiology STAT One Time for 1 Occurrences starting 04/10/2020 until 04/10/2020 [place] Comment on above: One Time for 1 Occur rences starting 04/10/2020 until 04/10/2020 End: 09-14-2020 C.trachomatis N.gonorrhoeae DNA C.trachomatis N.gonorrhoeae DNA Microbiology Routine Screen for STD (sexually transmitted disease) Vaginal discharge 1 Occurrences starting 09/14/2020 until 09/14/2020 [facility] Phone: Comment on above: 1 Occurrences starti ng 09/14/2020 until 09/14/2020 End: 04-14-2020 Culture, Urine Culture, Urine Microbiology Routine Abdominal pain, suprapubic 1 Occurrences starting 04/14/2020 until 04/14/2020 [place] Comment on above: 1 Occurrences starti ng 04/14/2020 until 04/14/2020 Culture, Urine Culture, Urine Microbiology Routine Abdominal pain, suprapubic 04/14/2020 8:53 PM EST [place] End: 03-31-2020 Strep A DNA probe, amplification Strep A DNA probe, amplification Lab Routine Once for 1 Occurrences starting 03/31/2020 until 03/31/2020 [place] Comment on above: Once for 1 Occurrenc es starting 03/31/2020 until 03/31/2020 Strep A DNA probe, amplification Strep A DNA probe, amplification Lab Routine 03/31/2020 12:18 PM EST [employer] SE[facility] End: 09-14-2020 VAGINITIS DNA PROBE VAGINITIS DNA PROBE Microbiology Routine Screen for STD (sexually transmitted disease) Vaginal discharge 1 Occurrences starting 09/14/2020 until 09/14/2020 [facility] Phone: Comment on above: 1 Occurrences starti ng 09/14/2020 until 09/14/2020 VAGINITIS DNA PROBE VAGINITIS DN A PROBE Microbiology Routine Screen for STD (sexually transmitted disease) Vaginal discharge 09/14/2020 12:03 AM EDT [facility] Phone: Problems Active Problems Problem Classification Problem Date [...] Translations: [Xerosis cutis] Onset: 12-26-2016 12-26-2016 Episodic Procedures Date Procedure Procedure Detail Performing Clinician Start: 01-16-2022 Iadna prerna specie s direct probe tq Roula Norton NURSING UNIT CLERK - MANAGER BALANCE Work Phone: Start: 04-27-2020 Us pelvic nonobstetr ic real-time image complete Rosalinda Sargent Start: 04-27-2020 Antibody hiv-1&hiv-2 single result Rosalinda Sargent Work Phone: Start: 04-14-2020 Urinalysis microscopic only Rosalinda Sargent Work Phone: Start: 04-14-2020 Urnls dip stick/tabl et rgnt auto w/o microscopy Rosalinda Sargent Work Phone: Start: 04-10-2020 Iadna prerna specie s direct probe tq Donato Russell Work Phone: Start: 04-10-2020 Ct abdomen & pelvis w/contrast material Donato Russell Work Phone: Start: 04-10-2020 Urinalysis microscopic only Donato Russell Work Phone: Start: 04-10-2020 Urnls dip stick/tabl et rgnt auto w/o microscopy Donato Russell Work Phone: Start: 04-10-2020 Assay of lipase Donato Russell Work Phone: Start: 04-10-2020 Assay of magnesium Natalya Russell Work Phone: Start: 04-10-2020 Blood count complete auto&auto difrntl wbc Donato Russell Work Phone: Start: 04-10-2020 Comprehensive metabo lic panel Donato Russell Work Phone: Start: 04-10-2020 Gonadotropin chorion ic qualitative Donato Russell Work Phone: Start: 03-31-2020 Radiologic exam ches t single view ROSALINDA ROSETTA Start: 03-31-2020 Iaadiadoo streptococ cus group a ROSALINDA ROSETTA Start: 03-31-2020 Urnls dip stick/tabl et rgnt auto w/o microscopy ROSALINDA ROSETTA Start: 03-31-2020 Radiologic exam ches t single view Ilene Ondina Regina Work Phone: Start: 03-31-2020 Iaadiadoo streptococ cus group a Ilene Ondina Regina Work Phone: Start: 03-31-2020 Urinalysis microscopic only Ilene Ondina Regina Work Phone: Start: 03-31-2020 Urine test visual color cmprsn meths Ilene Nj Regina Work Phone: Start: 03-31-2020 Urnls dip stick/tabl et rgnt auto w/o microscopy Ilene Nj Regina Work Phone: Start: 08-19-2019 Iadna prerna specie s direct probe tq Roula L Leese Work Phone: Results Test Name Value Interpretation Reference Range Facil ity ED Note-Physicianon 10-08-19 ED Note-Physician Basic Information Time Seen: Ruperto Lr PA-C 09/27/2022 11:08 Chief Complaint c/o intermittent rash [...] and Complexity of Problems Differential Diagnosis: [] [facility] Data External documents reviewed: [] [...] LUTZ In 3 days 09/30/2022 EDT [address] [facility] [place] [address]- Business (1) Additional Instructions: Follow-up with your primary care provider in 3 to 5 days. If symptoms worsen, do not improve, or new symptoms arise please report back to emergency department for further evaluation. Patient Education Contact Dermatitis, Libx-rx-Pdea Attestation Patient seen and evaluated by the physician delivery assistant. Attending physician was present in the emergency department and supervised care. This visit was performed by both the physician and an APC. I performed all aspects of the MDM as documented. This report was transcribed using voice recognition software. Every effort was made to ensure accuracy, however, inadvertently computerized industrial workers mistakes may be present. Appropriate healthcare PPE was used in evaluating this patient. The patient was placed in a mask. The healthcare provider was wearing mask, gloves, an (more content not included)... Normal [facility] Comment on above: Result Comment: Elec tronically Signed By: Ruperto Lr PA-C\.br\Date and Time Signed: 09/27/22 11:48 EDT\.br\Electronically Co-Signed By: Marvin Bartlett MD\.br\Date and Time Co-Signed: 10/07/22 08:14 EDT Consent for Treatmenton 09-08 Consent for Treatment [id number] .[id number]:127 Normal [facility] Discharge Instructionson Discharge Instructions [id number]:127 Normal [facility] ED Clinical Summaryon 2022 ED Clinical Summary [place] [id number] ED Clinical Summary Person Information Name: RICARDOSARAHY OMAR GREENWOODRg MARIE [facility]ed[facility] Age: 17 Years : 2005 Sex: Female Language: Mauritanian PCP: NONE, XXXX Marital Status: Single Visit [...] 09/27/2022 11:39:35 09/27/2022 11:39:35 09/27/2022 11:39:35 ADDRESS: [address] [place] [id number] PHYS DOC NOTES: MEDICAL INFORMATION: Prescriptions Given: New Medications Printed Prescriptions cetirizine (cetirizine 10 mg Tab) 1 Tablets By Mouth every day. Refills: 0. predniSONE (predniSONE 20 mg Tab) 1 Tablets By Mouth As Directed. Take two tabs by mouth daily for three days, then one tab daily for three days. Refills: 0. PATIENT EDUCATION INFORMATION: Instructions: Contact Dermatitis, Dlkh-av-Thhs Follow up: With: Address: When: Anaid LUTZ [address] [place], [place] [address], [place] [phone] Business (1) In 3 days 09/30/2022 Comments: Follow-up with your primary care provider in 3 to 5 days. If symptoms worsen, do not improve, or new symptoms arise please report back to emergency department for further evaluation. DIAGNOSIS: Contact dermatitis Normal [facility] ED Patient Education Noteon 09-27-2022 ED Patient [...] and dyes. Medicines ? Take or apply umtp-drd-nlhbche and prescription medicines only as told by [...] and water are not available, use hand manager generation. General instructions ? Avoid the things that [...] Reviewed: 01/09/2022 Elsevier Patient Education ? 2022 [employer] Normal [facility] ED Patient Summaryon 023 ED Patient Summary [address] [address] Patient Discharge Instructions Person Information Name: YVON SMALLS Age: 17 Years Arrival Date: 09/27/2022 10:57:13 Discharge Diagnosis: Contact dermatitis Primary Care Physician: NONE, XXXX Provider Information Primary Provider: Advanced Pick Remover:None The exam and treatment you received in the Emergency Department were for an urgent problem and are not intended as complete care. It is important that you follow up with a doctor, nurse practitioner, or physician?s delivery assistant for ongoing care. If your symptoms [...] Follow-up Instructions: With: Address: When: Anaid LUTZ [address] [place] [address] [address], [place] [address] [facility] (1) In 3 days 09/30/2022 Comments: Follow-up [...] participating provider. Patient Education Materials: Contact Dermatitis, Yuzx-vc-Ubbg A MESSAGE TO ALL PATIENTS REGARDING OPIOIDS PRESCRIPTION OPIOIDS: WHAT YOU NEED TO KNOW Prescription opioids can be used to help relieve lwjkyaae-ez-yersua pain and are often prescribed following a [...] about the (more content not included)... Normal [facility] CHLAMYDIA/GONOCOCCUS RANJAN (SW AB/URINE/PAPon 07-13-2022 Chlamydia trachomatis, RANJAN Negative Normal Negative [facility] Comment on above: Performed By: #### C T/NGNA #### [facility] [address] [place] [address] Dr. Marbella Campos Neisseria gonorrhoeae, RANJAN Negative Normal Negative [facility] Comment on above: Performed By: #### C T/NGNA #### [facility] [address] [place] [address] [address] Marbella Campos VAGINITIS/VAGINOSIS DNA PROB David 07-12-2022 Prerna species Negative Normal Negative [facility] Comment on above: Performed By: #### V AGINT #### [facility] [address] [place] [address] [address] Marbella Campos Gardnerella vaginalis Positive Abnormal Negative [facility] Comment on above: Performed By: #### V AGINT #### [facility] [address] [place] [address] [address] Marbella Campos Trichomonas vaginalis Negative Normal Negative [facility] Comment on above: Performed By: #### V AGINT #### [facility] [address] [place] [address] [address] Marbella Campos CHLAMYDIA/GONOCOCCUS RANJAN (SW AB/URINE/PAPon 03-31-2022 Chlamydia trachomatis, RANJAN Negative Normal Negative [facility] Comment on above: Performed By: #### C T/NGNA #### [facility] [address] [place] [address] [address] Marbella Campos Neisseria gonorrhoeae, RANJAN Negative Normal Negative [facility] Comment on above: Performed By: #### C T/NGNA #### [facility] [address] [place] [address] Dr. Marbella Campos VAGINITIS/VAGINOSIS DNA PROB David 03-30-2022 Prerna species Negative Normal Negative [facility] Comment on above: Performed By: #### V AGINT #### [facility] [address] [place] [address] Dr. Marbella Campos Gardnerella vaginalis Positive Abnormal Negative [facility] Comment on above: Performed By: #### V AGINT #### [facility] [address] [place] [address] Dr. Marbella Campos Trichomonas vaginalis Negative Normal Negative [facility] Comment on above: Performed By: #### V AGINT #### [facility] [address] [place] [address] Dr. Marbella Campos INFLUENZA A AND B AGon 03-19 INFLUBNEGH SEE BELOW Normal [facility] Comment on above: Result Comment: Nega tive for Flu B protein antigen. Infection due to Flu B cannot be ruled out. Flu B antigen in the sample may be below the detection limit of the test. Performed By: #### I NFLUAB #### [facility] [address] [place] [address] Dr. Marbella Campos INFLUENZA A AG Positive Abnormal NEGATIVE SEE COMMENT [facility] Comment on above: Performed By: #### I NFLUAB #### [facility] [address] [place] [address] Dr. Marbella Campos INFLUENZA B AG Negative Normal NEGATIVE SEE COMMENT [facility] Comment on above: Performed By: #### I NFLUAB #### [facility] [address] [place] [address] Dr. Marbella Campos INFLUPOSH SEE BELOW Normal [facility] Comment on above: Result Comment: NOTE : Live attenuated influenzae vaccine viruses can cause a positive result for a rapid influenza diagnostic test if administered up to 7 days prior to rapid testing. Performed By: #### I NFLUAB #### [facility] [address] [place], [place] [address] Dr. Marbella Campos INTERNAL CONTROLS Within Normal Limits Normal Wi thin Normal Limits [facility] Comment on above: Performed By: #### I NFLUAB #### [facility] [address] [place], [place] [address] Dr. Marbella Campos C.trachomatis N.gonorrhoeae DNAon 01-17-2022 C. trachomatis DNA RANJAN+probe Ql (Genital specimen) POSITIVE: CHLAMYDIA TRACHOMATIS DNA detected by nucleic acid amplification. Abnormal NEGATIVE [facility] Comment on above: This test is intended [...] Interpretation and review of laboratory results Abnormal [facility] N. gonorrhoeae DNA Negative NEGATIVE [facility] Comment on above: NEISSERIA GONORRHOEA E [...] nucleic acid target. Specimen Description .CERVIX [facility] Chlamydia/GC,DNA Ampon 01-17 Chlamydia Probe POSITIVE: CHLAMYDIA TRACHOMATIS DNA detected by nucleic acid amplification. Abnormal NEG [facility] Comment on above: Result Comment: This [...] appropriate Health Department Performed By: #### S WC #### [id number] [place], [place] [id number] Radiator Cleaner: Yeyo Spencer MD Gonorrhea Probe Negative Normal NEG [facility] Comment on above: Result Comment: NEIS [...] target. Performed By: #### S WCGP #### [facility] [address] [place] [address] [phone] Radiator Cleaner: Yeyo Spencer MD Vaginitis DNA Probeon 2021 Prerna Negative Normal NEG [facility] Comment on above: Result Comment: for Prerna sp. Method of testing is a DNA probe intended for detection and identification of Prerna species, Gardnerella vaginalis, and Trichomonas vaginalis nucleic acid in vaginal fluid specimens from patients with symptoms of vaginitis/vaginosis. Performed By: #### V AGP #### [employer] [address] [id number] Radiator Cleaner: Yeyo Spencer MD PRERNA SPECIES, DNA PROBE Negative NEGATIVE [facility] Comment on above: for Prerna sp. Method of testing is a DNA probe intended for detection and identification of Prerna species, Gardnerella vaginalis, and Trichomonas vaginalis nucleic acid in vaginal fluid specimens from patients with symptoms of vaginitis/vaginosis. Gardnerella Positive Abnormal NEG [facility] Comment on above: Result Comment: for Gardnerella vaginalis Performed By: #### V AGP #### [employer] [address] [place] [address] [phone] Radiator Cleaner: Yeyo Spencer MD GARDNERELLA VAGINALIS, DNA PROBE Positive Abnormal NEGATIVE [facility] Comment on above: for Gardnerella vagi nalis Interpretation and review of laboratory results Abnormal [facility] Source .VAGINAL SWAB Normal [facility] Comment on above: Performed By: #### V AGP #### [facility] [address] [place] [phone] Radiator Cleaner: Yeyo Spencer MD Source .VAGINAL SWAB [facility] Trichomonas Negative Normal NEG [facility] Comment on above: Result Comment: for Trichomonas Vaginalis Performed By: #### V AGP #### [address] [address] Radiator Cleaner: Yeyo Spencer MD Trichomonas Vaginalis DNA Negative NEGATIVE [facility] Comment on above: for Trichomonas Vagi nalis [facility] Chlamydia/GC,DNA Ampon 03-21 Chlamydia Probe Negative Normal NEG [facility] Comment on above: Result Comment: CHLA [...] target. Performed By: #### S WCGP #### [facility] [address] [place] [phone] Radiator Cleaner: Yeyo Spencer MD Gonorrhea Probe Negative Normal NEG [facility] Comment on above: Result Comment: NEIS [...] target. Performed By: #### S WCGP #### [address] [address] Radiator Cleaner: Yeyo Spencer MD Vaginitis DNA Probeon 2020 Vaginitis DNA Probe Specimen Description .VAGINA Special Requests NOT REPORTED Direct Exam POSITIVE for Prerna sp. NEGATIVE for Gardnerella vaginalis NEGATIVE for Trichomonas vaginalis Method of testing is a DNA probe intended for detection and identification of Prerna species, Gardnerella vaginalis, and Trichomonas vaginalis nucleic acid in vaginal fluid specimens from patients with symptoms of vaginitis/vaginosis. Report Status FINAL 03/18/2021 Normal [facility] Comment on above: Performed By: #### V AGDNA #### [address] [address] Radiator Cleaner: Yeyo Spencer MD Cult,Urineon 03-05-2021 Cult,Urine Specimen Description .CLEAN CATCH URINE Special Requests NOT REPORTED Culture NO SIGNIFICANT GROWTH Report Status FINAL 03/05/2021 [facility] Comment on above: Performed By: #### U RC #### [address] [address] Radiator Cleaner: Yeyo Spencer MD Urinalysis w/ Microon 2020 ----- Normal [facility] Comment on above: Performed By: #### U AMIC #### [address] [address] Radiator Cleaner: Yeyo Spencer MD Amorphous sediment LM Ql (Urine sed) NOT REPORTED Normal NONE [facility] Comment on above: Performed By: #### U AMIC #### [address] [address] Radiator Cleaner: Yeyo Spencer MD Bacteria None Normal [facility] Comment on above: Performed By: #### U AMIC #### [address] [address] Radiator Cleaner: Yeyo Spencer MD Bilirubin, SemiQt,Ur Negative Normal NEG [facility] Comment on above: Performed By: #### U AMIC #### [address] [address] Radiator Cleaner: Yeyo Spencer MD Blood, Urine Negative Normal NEG [facility] Comment on above: Performed By: #### U AMIC #### [address] [address] Radiator Cleaner: Yeyo Spencer MD Casts 0 TO 2 Normal 0-2 [facility] Comment on above: Result Comment: HYAL INE Performed By: #### U AMIC #### [address] [address] Radiator Cleaner: Yeyo Spencer MD Clarity (U) Clear Normal CLEAR [facility] Comment on above: Performed By: #### U AMIC #### [address] [address] Radiator Cleaner: Yeyo Spencer MD Color (U) Yellow Normal YEL [facility] Comment on above: Performed By: #### U AMIC #### [address] [address] Radiator Cleaner: Yeyo Spencer MD Crystals LM Nom (Urine sed) FEW Abnormal NONE [facility] Comment on above: Result Comment: CALC IUM OXALATE Performed By: #### U AMIC #### [address] [address] Radiator Cleaner: Yeyo Spencer MD Epithelial cells LM Ql (Urine sed) 2 TO 5 Normal 0-5 [facility] Comment on above: Performed By: #### U AMIC #### [address] [address] Radiator Cleaner: Yeyo Spencer MD Epithelial, Renal NOT REPORTED Normal 0 [facility] Comment on above: Performed By: #### U AMIC #### [address] [address] Radiator Cleaner: Yeyo Spencer MD Glucose Ql (U) Negative Normal NEG [facility] Comment on above: Performed By: #### U AMIC #### [address] [address] Radiator Cleaner: Yeyo Spencer MD Ketones Ql (U) Negative Normal NEG [facility] Comment on above: Performed By: #### U AMIC #### [address] [address] Radiator Cleaner: Yeyo Spencer MD Leukocyte esterase Test strip Ql (U) Negative Normal NEG [facility] Comment on above: Performed By: #### U AMIC #### [address] [address] Radiator Cleaner: Yeyo Spencer MD Mucus Strands 2+ Abnormal NONE [facility] Comment on above: Performed By: #### U AMIC #### [address] [address] Radiator Cleaner: Yeyo Spencer MD Nitrite,Ur Negative Normal NEG [facility] Comment on above: Performed By: #### U AMIC #### [address] [address] Radiator Cleaner: Yeyo Spencer MD Other Observations NOT REPORTED Normal NREQ [facility] Comment on above: Performed By: #### U AMIC #### [address] [address] Radiator Cleaner: Yeyo Spencer MD PH,Ur 6.0 Normal 5.0-8.0 [facility] Comment on above: Performed By: #### U AMIC #### [address] [address] Radiator Cleaner: Yeyo Spencer MD Protein Ql (U) Negative Normal NEG [facility] Comment on above: Performed By: #### U AMIC #### [address] [address] Radiator Cleaner: Yeyo Spencer MD Spec. [place],Ur 1.027 Normal 1.005-1.030 [facility] Comment on above: Performed By: #### U AMIC #### [address] [address] Radiator Cleaner: Yeyo Spencer MD Trichomonas NOT REPORTED Normal NONE [facility] Comment on above: Performed By: #### U AMIC #### [address] [address] Radiator Cleaner: Yeyo Spencer MD Urine RBC's 0 TO 2 Normal 0-2 [facility] Comment on above: Performed By: #### U AMIC #### [address] [address] Radiator Cleaner: Yeyo Spencer MD Urine WBC's 0 TO 2 Normal 0-5 [facility] Comment on above: Performed By: #### U AMIC #### [address] [address] Radiator Cleaner: Yeyo Spencer MD Urobilinogen,Ur Normal Normal NORM [facility] Comment on above: Performed By: #### U AMIC #### [address] [address] Radiator Cleaner: Yeyo Spencer MD Yeast NOT REPORTED Normal NONE [facility] Comment on above: Performed By: #### U AMIC #### [address] [address] Radiator Cleaner: Yeyo Spencer MD [id number] 12-07-2020 SARS-CoV-2 (COVID-19) RNA RANJAN+probe Ql (Unsp spec) Detected Abnormal NOTDET [facility] Comment on above: Result Comment: Rapid [...] this assay. Fact sheet for Healthcare Providers: https://www.fda.gov/media/232251/download Fact sheet for Patients: https://www.fda.gov/media/997972/download Methodology: Isothermal Nucleic Acid Amplification Results reported to the appropriate Health Department Performed By: #### C OVRB ####[facility] [id number] [place] [address] Lab Director: Gamaliel Calderon DO HIV Ag/Abon 04-27-2020 HIV Ag/Ab Non-Reactive Normal NR [facility] Comment on above: Result Comment: No l aboratory evidence of HIV infection. If acute HIV infection is suspected, consider testing for HIV-1 RNA. Performed By: #### H IVCMB #### [facility] [address] [place], [place] [phone] Radiator Cleaner: Yeyo Spencer MD HIV Screenon 04-27-2020 HIV Ag/Ab NONREACTIVE NONREACTIVE [place] Comment on above: No laboratory eviden ce of HIV infection. If acute HIV infection is suspected, consider testing for HIV-1 RNA. US PELVIS COMPLETEon 021 US PELVIS COMPLETE EXAMINATION: PELVIC ULTRASOUND 04/27/2020 TECHNIQUE: Transabdominal pelvic ultrasound was performed. COMPARISON: CT 04/10/2020 HISTORY: ORDERING SYSTEM PROVIDED HISTORY: Abdominal pain, suprapubic TECHNOLOGIST PROVIDED HISTORY: This procedure can be scheduled via [employer]. Access your [employer] account by visiting [email or web address] ([email or web address]). ovarian cyst, abdominal pain FINDINGS: Measurements: Uterus: [...] Juan Melgar MD 04/27/20 Final result Normal [facility] Unremarkable pelvic ultrasound. [place] EXAMINATION: PELVIC ULTRASOUND 04/27/2020 TECHNIQUE: Transabdominal pelvic ultrasound was performed. COMPARISON: CT 04/10/2020 HISTORY: ORDERING SYSTEM PROVIDED HISTORY: Abdominal pain, suprapubic TECHNOLOGIST PROVIDED HISTORY: This procedure can be scheduled via [employer]. Access your [employer] account by visiting [email or web address] [email or web address]). ovarian cyst, abdominal pain FINDINGS: Measurements: Uterus: [...] fluid in the cul-de-sac is likely physiologic [place], [place] Domingo, Mhpn Incoming Radiant Results From [employer] - 04/27/2020 11:11 AM EST EXAMINATION: PELVIC ULTRASOUND 04/27/2020 TECHNIQUE: Transabdominal pelvic ultrasound was performed. COMPARISON: CT 04/10/2020 HISTORY: ORDERING SYSTEM PROVIDED HISTORY: Abdominal pain, suprapubic TECHNOLOGIST PROVIDED HISTORY: This procedure can be scheduled via [employer]. Access your [employer] account by visiting [email or web address] [email or web address]). ovarian cyst, abdominal pain FINDINGS: Measurements: Uterus: [...] is likely physiologic IMPRESSION: Unremarkable pelvic ultrasound. [place] Microscopic Urinalysison Amorphous, UA NOT REPORTED None [place], [place] Bacteria, UA MODERATE Abnormal None [place] Casts UA 5 TO 10 HYALINE Reference range defined for non-centrifuged specimen. [place] Crystals, UA NOT REPORTED None /HPF [place] Epithelial Cells UA 20 TO 50 [place] Mucus, UA NOT REPORTED None [place] Other Observations UA NOT REPORTED NOT REQ. [place] RBC (U) [#/Vol] 2 TO 5 [place] Comment on above: Reference range defi marlen for non-centrifuged specimen. Renal Epithelial, UA NOT REPORTED 0 /HPF [place] Trichomonas, UA NOT REPORTED None [place] WBC, UA 10 TO 20 [place] Yeast, UA NOT REPORTED None [place] - [place] Otheron 04-14-2020 Interpretation and review of laboratory results Abnormal [place] Urinalysison 04-14-2020 Bilirubin Urine Negative NEGATIVE [place] Color, UA YELLOW YELLOW [place] Glucose, Ur Negative NEGATIVE [place] Ketones Ql (U) Negative NEGATIVE [place] Leukocyte esterase Test strip Ql (U) TRACE Abnormal NEGATIVE [place] Nitrite, Urine Negative NEGATIVE [place] pH, UA 6.5 [place] Protein (U) [Mass/Vol] Negative NEGATIVE [place] Specific [place], UA 1.026 [place], [place] Turbidity UA CLOUDY Abnormal CLEAR [place] Urinalysis Comments NOT REPORTED [place] Urine Hgb Negative NEGATIVE [place] Urobilinogen, Urine Normal Normal [place] Chlamydia/GC,DNA Ampon 04-12 Chlamydia Probe Negative Normal NEG [facility] Comment on above: Result Comment: CHLA [...] target. Performed By: #### S WCGP #### [employer] [address] [place] [address] [phone] Radiator Cleaner: Yeyo Spencer MD Gonorrhea Probe Negative Normal NEG [facility] Comment on above: Result Comment: NEIS [...] target. Performed By: #### S WCGP #### [employer] [address] [place] [id number] Radiator Cleaner: Yeyo Spencer MD CBC Auto Differentialon Basophils (Bld) [#/Vol] 0.00 10*3/uL [place] Basophils/100 WBC (Bld) 0 % 0 - 2 % [place] Differential Type NOT REPORTED [place] Eosinophils (Bld) [#/Vol] 0.10 10*3/uL [place] Eosinophils/100 WBC (Bld) 1 % 0 - 4 % [place] Erythrocyte distribution width (RBC) [Ratio] 11.7 % 11.5 - 14.9 % [place] Hematocrit (Bld) [Volume fraction] 39.8 % 36 - 46 % [place] Hemoglobin (Bld) [Mass/Vol] 13.3 g/dL 12 - 16 g/dL [place] Lymphocytes (Bld) [#/Vol] 1.60 10*3/uL [place] Lymphocytes/100 WBC (Bld) 15 % Low 25 - 45 % [place] MCH (RBC) [Entitic mass] 31.7 pg 25 - 35 pg [place] MCHC (RBC) [Mass/Vol] 33.5 g/dL 31 - 37 g/dL [place] MCV (RBC) [Entitic vol] 94.5 fL 78 - 102 fL [place] Monocytes (Bld) [#/Vol] 0.60 10*3/uL [place] Monocytes/100 WBC (Bld) 6 % 2 - 8 % [place] Platelet mean volume (Bld) [Entitic vol] 7.1 fL 6 - 12 fL [place] Platelets (Bld) [#/Vol] 322 10*3/uL [place] Platelets (Bld) [#/Vol] NOT REPORTED [place] RBC (Bld) [#/Vol] 4.21 10*6/uL 4 - 5.2 m/uL [place] RBC morphology finding Nom (Bld) NOT REPORTED [place] Segmented neutrophils/100 WBC (Bld) 78 % High 34 - 64 % [place] Segs Absolute 8.50 [place] WBC (Bld) [#/Vol] NOT REPORTED per 100 WBC [place] WBC (Bld) [#/Vol] 10.8 10*3/uL [place] WBC Morphology NOT REPORTED [place], [place] CBC with Diffon 04-10-2020 Abs. Basophil 0.00 k/uL Normal 0.0-0.2 [facility] Comment on above: Performed By: #### M G, CDP, CP, HCG, LIP ####[facility] [id number] [place] [address] Lab Director: Gamaliel Calderon, Abs.Imm.Granulocyte NOT REPORTED Normal 0.00-0.30 [facility] Comment on above: Performed By: #### M G, CDP, CP, HCG, LIP ####[facility] [id number], [place] [phone] Director: Gamaliel Calderon DO Abs.Neutrophil (Seg) 8.50 k/uL Normal 1.3-9.1 [facility] Comment on above: Performed By: #### M G, CDP, CP, HCG, LIP ####[facility] Hnr2261 [facility], [place] [phone] Director: Gamaliel Calderon DO Auto Diff Performed NOT REPORTED Normal [facility] Comment on above: Performed By: #### M G, CDP, CP, HCG, LIP ####[facility] Wce6365 [facility], [place] [phone] Director: Gamaliel Calderon DO Basophils/100 WBC (Bld) 0 % Normal 0-2 [facility] Comment on above: Performed By: #### M G, CDP, CP, HCG, LIP ####[facility] Dli4533 [facility], [place] [phone] Director: Gamaliel Calderon DO Eosinophils (Bld) [#/Vol] 0.10 10*3/uL Normal 0.0-0.4 [facility] Comment on above: Performed By: #### M G, CDP, CP, HCG, LIP ####[facility] K[address] [facility], [place] [phone])[phone] Director: Gamaliel Calderon DO Eosinophils/100 WBC (Bld) 1 % Normal 0-4 [facility] Comment on above: Performed By: #### M G, CDP, CP, HCG, LIP ####[facility] [address] [facility], [place] [phone])[phone] Director: Gamaliel Calderon DO Erythrocyte distribution width (RBC) [Ratio] 11.7 % Normal 11.5-14.9 [facility] Comment on above: Performed By: #### M G, CDP, CP, HCG, LIP ####[facility] [address], [place] [phone] Director: Gamaliel Calderon DO Hematocrit (Bld) [Volume fraction] 39.8 % Normal 36-46 [facility] Comment on above: Performed By: #### M G, CDP, CP, HCG, LIP ####[facility] [address], [place] [phone] Director: Gamaliel Calderon DO Hemoglobin (Bld) [Mass/Vol] 13.3 g/dL Normal 12.0-16.0 [facility] Comment on above: Performed By: #### M G, CDP, CP, HCG, LIP ####[facility] [address] [facility].[place], [place] [phone] Director: Gamaliel Calderon DO Immature Granulocyte NOT REPORTED Normal [address] [facility] Comment on above: Performed By: #### M G, CDP, CP, HCG, LIP ####[facility] [address] [facility], [place] [phone])[phone] Director: Gamaliel Calderon DO Lymphocytes (Bld) [#/Vol] 1.60 10*3/uL Normal 1.2-5.2 [facility] Comment on above: Performed By: #### M G, CDP, CP, HCG, LIP ####[facility] [address] [facility] [place] [address] lab Director: Gamaliel Calderon DO Lymphocytes/100 WBC (Bld) 15 % Low 25-45 [facility] Comment on above: Performed By: #### M G, CDP, CP, HCG, LIP ####[facility] [address], [place] [phone] Director: Gamaliel Calderon DO MCH (RBC) [Entitic mass] 31.7 pg Normal 25-35 [facility] Comment on above: Performed By: #### M G, CDP, CP, HCG, LIP ####[facility] [address] [place] [address] lab Director: Gamaliel Calderon DO MCHC (RBC) [Mass/Vol] 33.5 g/dL Normal 31-37 [facility] Comment on above: Performed By: #### M G, CDP, CP, HCG, LIP ####[facility] U[address] [facility], [place] [phone] Director: Gamaliel Calderon DO MCV (RBC) [Entitic vol] 94.5 fL Normal 78-102 [facility] Comment on above: Performed By: #### M G, CDP, CP, HCG, LIP ####[facility] Syx9413 [facility] [place] [address] lab Director: Gamaliel Calderon DO Monocytes (Bld) [#/Vol] 0.60 10*3/uL Normal 0.1-1.3 [facility] Comment on above: Performed By: #### M G, CDP, CP, HCG, LIP ####[facility] Smr2626 [facility] [place] [address] lab Director: Gamaliel Calderon DO Monocytes/100 WBC (Bld) 6 % Normal 2-8 [facility] Comment on above: Performed By: #### M G, CDP, CP, HCG, LIP ####[facility] Iax9679 [facility] [place] [address] lab Director: Gamaliel Calderon DO Neutrophil (Seg) 78 % High 34-64 [facility] Comment on above: Performed By: #### M G, CDP, CP, HCG, LIP ####[facility] [id number] [place], [place] [address]e.[place] [address] Lab Director: Gamaliel Calderon DO NRBC Automated NOT REPORTED Normal [facility] Comment on above: Performed By: #### M G, CDP, CP, HCG, LIP ####[facility] Amm8843 [facility], [place] [phone] Director: Gamaliel Calderon DO Platelet Estimate NOT REPORTED Normal [facility] Comment on above: Performed By: #### M G, CDP, CP, HCG, LIP ####[facility] Ekv7728 [facility] [place] [address] Lab Director: Gamaliel Calderon DO Platelet mean volume (Bld) [Entitic vol] 7.1 fL Normal 6.0-12.0 [facility] Comment on above: Performed By: #### Prateek G, CDP, CP, HCG, LIP ####[facility] [id number] [facility] [place] [address] Lab Director: Gamaliel Calderon DO Platelets (Bld) [#/Vol] 322 10*3/uL Normal 150-450 [facility] Comment on above: Performed By: #### Prateek G, CDP, CP, HCG, LIP ####[facility] Ceo3336 [facility] [place] [address] Lab Director: Gamaliel Calderon DO RBC (Bld) [#/Vol] 4.21 10*6/uL Normal 4.0-5.2 [facility] Comment on above: Performed By: #### Prateek G, CDP, CP, HCG, LIP ####[facility] Bgp3737 [facility], [place] [phone])[phone] Director: Gamaliel Calderon DO RBC morphology finding Nom (Bld) NOT REPORTED Normal [facility] Comment on above: Performed By: #### M G, CDP, CP, HCG, LIP ####[facility] [address] [place] [address] Lab Director: Gamaliel Calderon DO WBC (Bld) [#/Vol] 10.8 10*3/uL Normal 4.5-13.5 [facility] Comment on above: Performed By: #### M G, CDP, CP, HCG, LIP ####[facility] Gsk5120 [facility] [place] [address] Lab Director: Gamaliel Calderon DO WBC Morphology NOT REPORTED Normal [facility] Comment on above: Performed By: #### M G, CDP, CP, HCG, LIP ####[facility] Gua4068 [facility], [place] [phone] Director: Gamaliel Calderon DO CT ABDOMEN PELVIS [...] Radhika Sloan MD 04/10/20 Final result Normal [facility] CT ABDOMEN PELVIS W IV CONTR AST Additional Contrast? Noneon 04-10-2020 Domingo, [employer] Incoming Radiant Results From [employer] - 04/10/2020 3:44 PM EST EXAMINATION: CT [...] ovarian cysts of less than 2 cm. [place] EXAMINATION: CT OF THE ABDOMEN AND [...] No acute osseous or soft tissue abnormality. [place] Scattered fluid-filled small bowel loops favoring enteritis. No small bowel obstruction, gallstones, or appendicitis. No urinary obstruction. Hypodensities in the adnexal areas compatible with cysts. RECOMMENDATIONS: No further ultrasound evaluation for appearance of ovarian cysts of less than 2 cm. [place] Comp Metabolic Profon 2020 (cont.) Normal [facility] Comment on above: Result Comment: Aver age GFR for <20 years old not available. Chronic Kidney Disease: <60 mL/min/1.73sq m Kidney failure: <15 mL/min/1.73sq m eGFR calculated using average adult body mass. Additional eGFR calculator available at: http://www.[employer]marks.GoMoto/multiple_crcl_2012.htm Performed By: #### M G, CDP, CP, HCG, LIP ####[facility] [id number], [place] [phone])[phone] Director: Gamaliel Calderon DO Albumin [Mass/Vol] 4.1 g/dL Normal 3.2-4.5 [facility] Comment on above: Performed By: #### M G, CDP, CP, HCG, LIP ####[facility] [address], [place] [phone] Director: Gamaliel Calderon DO Albumin/Glob Ratio NOT REPORTED Normal 1.0-2.5 [facility] Comment on above: Performed By: #### M G, CDP, CP, HCG, LIP ####[facility] O[address] [facility].[place], [place] [phone] Director: Gaamliel Calderon DO Alkaline Phos 77 U/L Normal 47-119 [facility] Comment on above: Performed By: #### M G, CDP, CP, HCG, LIP ####[facility] [address], [place] [phone] Director: Gamaliel Calderon DO ALT [Catalytic activity/Vol] 10 U/L Normal 5-33 [facility] Comment on above: Performed By: #### M G, CDP, CP, HCG, LIP ####[facility] Izl64[address] [facility], [place] [phone] Director: Gamaliel Calderon DO Anion gap [Moles/Vol] 9 mmol/L Normal 9-17 [facility] Comment on above: Performed By: #### M G, CDP, CP, HCG, LIP ####[facility] [address], [place] [phone] Director: Gamaliel Calderon DO AST [Catalytic activity/Vol] 14 U/L Normal <32 [facility] Comment on above: Performed By: #### M G, CDP, CP, HCG, LIP ####[facility] [address] [place] [address] Lab Director: Gamaliel Calderon DO Bilirubin [Mass/Vol] 0.54 mg/dL Normal 0.3-1.2 [facility] Comment on above: Performed By: #### M G, CDP, CP, HCG, LIP ####[facility] [address] [place] [address] Lab Director: Gamaliel Calderon DO BUN/CRE Ratio NOT REPORTED Normal 9-20 [facility] Comment on above: Performed By: #### M G, CDP, CP, HCG, LIP ####[facility] [address], [place] [phone] Director: Gamaliel Calderon DO Calcium [Mass/Vol] 9.2 mg/dL Normal 8.4-10.2 [facility] Comment on above: Performed By: #### M G, CDP, CP, HCG, LIP ####[facility] [address], [place] [phone] Director: Gamaliel Calderon DO Chloride [Moles/Vol] 105 mmol/L Normal 98-107 [facility] Comment on above: Performed By: #### M G, CDP, CP, HCG, LIP ####[facility] [address], [place] [phone] Director: Gamaliel Calderon DO CO2 [Moles/Vol] 25 mmol/L Normal 20-31 [facility] Comment on above: Performed By: #### M G, CDP, CP, HCG, LIP ####[facility] [address] [place] [address] lab Director: Gamaliel Calderon DO Creatinine [Mass/Vol] 0.54 mg/dL Normal 0.50-0.90 [facility] Comment on above: Performed By: #### M G, CDP, CP, HCG, LIP ####[facility] Uui0701 [facility] [place] [address] Lab Director: Gamaliel Calderon DO GFR, Amer NOT REPORTED Normal >60 [facility] Comment on above: Performed By: #### M G, CDP, CP, HCG, LIP ####[facility] [id number] [facility] [place] [address] Lab Director: Gamaliel Calderon DO GFR,non Amer Pediatric GFR requires additional information. Refer to NKDEP website for Normal >60 [facility] Comment on above: Result Comment: calc ulator. Performed By: #### M G, CDP, CP, HCG, LIP ####[facility] Udw3942 [facility] [place] [address] Lab Director: Gamaliel Calderon DO Glucose [Mass/Vol] 98 mg/dL Normal 60-100 [facility] Comment on above: Performed By: #### M G, CDP, CP, HCG, LIP ####[facility] Mct[address] [facility] [place] [address] Lab Director: Gamaliel Calderon DO Potassium [Moles/Vol] 4.2 mmol/L Normal 3.6-4.9 [facility] Comment on above: Performed By: #### M G, CDP, CP, HCG, LIP ####[facility] Htk7068 [facility] [place] [address] lab Director: Gamaliel Calderon DO Protein [Mass/Vol] 6.8 g/dL Normal 6.0-8.0 [facility] Comment on above: Performed By: #### M G, CDP, CP, HCG, LIP ####[facility] [id number] [facility] [place] [address] Lab Director: Gamaliel Calderon DO Sodium [Moles/Vol] 139 mmol/L Normal 135-144 [facility] Comment on above: Performed By: #### M G, CDP, CP, HCG, LIP ####[facility] Lgb7545 [facility] [place] [address] Lab Director: Gamaliel Calderon DO Staging: NOT REPORTED Normal [facility] Comment on above: Performed By: #### M G, CDP, CP, HCG, LIP ####[facility] [id number] [facility], [place] [phone] Director: Gamaliel Calderon DO Urea nitrogen [Mass/Vol] 10 mg/dL Normal 5-18 [facility] Comment on above: Performed By: #### M G, CDP, CP, HCG, LIP ####[facility] Edt8374 [facility] [place] [address] Lab Director: Gamaliel Calderon DO Comprehensive Metabolic Pane tommy 04-10-2020 Albumin [Mass/Vol] 4.1 g/dL 3.2 - 4.5 g/dL [place] Albumin/Globulin [Mass ratio] NOT REPORTED [place] ALP [Catalytic activity/Vol] 77 U/L 47 - 119 U/L [place] ALT [Catalytic activity/Vol] 10 U/L 5 - 33 U/L [place] Anion gap [Moles/Vol] 9 mmol/L 9 - 17 mmol/L [place] AST [Catalytic activity/Vol] 14 U/L <32 [place] Bilirubin Ql (U) 0.54 mg/dL 0.3 - 1.2 mg/dL [place] Bun/Cre Ratio NOT REPORTED [place] Calcium [Mass/Vol] 9.2 mg/dL 8.4 - 10.2 mg/dL [place] Chloride [Moles/Vol] 105 mmol/L 98 - 107 mmol/L [place] CO2 [Moles/Vol] 25 mmol/L 20 - 31 mmol/L [place] Creatinine [Mass/Vol] 0.54 mg/dL 0.5 - 0.9 mg/dL [place] GFR NOT REPORTED >60 mL/min [place] GFR Non- Pediatric GFR requires additional information. Refer to NKDE website for calculator. >60 mL/min [place] GFR/1.73 sq M predicted among non-blacks MDRD (S/P/Bld) [Vol rate/Area] [place] Comment on above: Average GFR for <20 years old not available. Chronic Kidney Disease: <60 mL/min/1.73sq m Kidney failure: <15 mL/min/1.73sq m eGFR calculated using average adult body mass. Additional eGFR calculator available at: http://www.[employer]/multiple_crcl_2012.htm GFR/1.73 sq M predicted among non-blacks MDRD (S/P/Bld) [Vol rate/Area] NOT REPORTED [place] Glucose [Mass/Vol] 98 mg/dL 60 - 100 mg/dL [place] Potassium [Moles/Vol] 4.2 mmol/L 3.6 - 4.9 mmol/L [place] Protein [Mass/Vol] 6.8 g/dL 6 - 8 g/dL [place] Sodium [Moles/Vol] 139 mmol/L 135 - 144 mmol/L [place] Urea nitrogen [Mass/Vol] 10 mg/dL 5 - 18 mg/dL [place] HCG Qualitative, Serumon hCG Qual Negative NEGATIVE [place] Comment on above: Specimens with hCG l evels near the threshold of the test (25 mIU/mL) may give a negative or indeterminate result. In such cases, another test should be performed with a new specimen in 48-72 hours. If early is suspected clinically in this setting, correlation with quantitative serum b-hCG level is suggested. HCG Screen, Bloodon 04-10-19 21 HCG Screen, Blood Negative Normal NEG [facility] Comment on above: Result Comment: Spec [...] #### M G, CDP, CP, HCG, LIP ####[facility] [id number] [facility] [place] [address] lab Director: Gamaliel Calderon DO Lipaseon 04-10-2020 Lipase [Catalytic activity/Vol] 16 U/L 13 - 60 U/L [place] Lipase [Catalytic activity/Vol] 16 U/L Normal 13-60 [facility] Comment on above: Performed By: #### M G, CDP, CP, HCG, LIP ####[facility] [id number] [facility] [place] [address] lab Director: Gamaliel Calderon DO Magnesiumon 04-10-2020 Magnesium [Mass/Vol] 2.0 mg/dL 1.7 - 2.2 mg/dL [facility], [place] Magnesium [Mass/Vol] 2.0 mg/dL Normal 1.7-2.2 [facility] Comment on above: Performed By: #### Prateek G, CDP, CP, HCG, LIP ####[facility] [id number] [facility] [place] [address] lab Director: Gamaliel Calderon DO Microscopic Urinalysison Amorphous, UA 1+ Abnormal None [facility] [place] Bacteria, UA FEW Abnormal None [facility], [place] Casts UA NOT REPORTED /LPF [facility], [place] Crystals, UA NOT REPORTED None /HPF [facility], [place] Epithelial Cells UA 0 TO 2 /HPF [facility], [place] Mucus, UA NOT REPORTED None [place], [place] Other Observations UA NOT REPORTED NOT REQ. [place] RBC (U) [#/Vol] 20 TO 50 /HPF [place] Renal Epithelial, UA NOT REPORTED 0 /HPF [place] Trichomonas, UA NOT REPORTED None [place], [place] WBC, UA 10 TO 20 /HPF [place] Yeast, UA NOT REPORTED None [place] Otheron 04-10-2020 Direct Exam Negative [place] Immature granulocytes (Bld) [#/Vol] NOT REPORTED [place] Interpretation and review of laboratory results Abnormal [place] Urinalysison 04-10-2020 Bilirubin Urine Negative NEGATIVE [place] Color, UA YELLOW YELLOW [place] Glucose, Ur Negative NEGATIVE [place] Ketones Ql (U) Negative NEGATIVE [place], [place] Leukocyte esterase Test strip Ql (U) MOD Abnormal NEGATIVE [place] Nitrite, Urine Positive Abnormal NEGATIVE [place], [place] pH, UA 7.0 [place] Protein (U) [Mass/Vol] 1+ Abnormal NEGATIVE [place] Specific [place], UA 1.018 [place], [place] Turbidity UA CLEAR CLEAR [place] Urinalysis Comments NOT REPORTED [place] Urine Hgb LARGE Abnormal NEGATIVE [place] Urobilinogen, Urine Normal Normal [place] Urinalysis, Routineon 2020 Acetoacetic Acid,Ur Negative Normal NEG [facility] Comment on above: Performed By: #### U AKINO #### [facility] [address] [place] [address] Radiator Cleaner: Gamaliel Calderon DO Bilirubin, SemiQt,Ur Negative Normal NEG [facility] Comment on above: Performed By: #### U A UMICAO #### [facility] [address] [place] [address] Radiator Cleaner: Gamaliel Calderon DO Color (U) YELLOW Normal YEL [facility] Comment on above: Performed By: #### CHASE Delaney #### [facility] [address] [facility] [place] [address] Radiator Cleaner: Gamaliel Calderon DO Comment NOT REPORTED Normal [facility] Comment on above: Performed By: #### CHASE Delaney #### [facility] [address] [facility] [place] [address] Radiator Cleaner: Gamaliel Calderon DO Glucose Ql (U) Negative Normal NEG [facility] Comment on above: Performed By: #### CHASE Delaney #### [facility] Lab [facility] [address] [place] [address] Radiator Cleaner: Gamaliel Calderon DO Hemoglobin, Ur LARGE Abnormal NEG [facility] Comment on above: Performed By: #### CHASE Delaney #### [facility] [address] [facility] [place] [address] Radiator Cleaner: Gamaliel Calderon DO Leukocyte esterase Test strip Ql (U) MOD Abnormal NEG [facility] Comment on above: Performed By: #### CHASE Delaney #### [facility] [address] [facility] [place] [address] Radiator Cleaner: Gamaliel Calderon DO Nitrite,Ur Positive Abnormal NEG [facility] Comment on above: Performed By: #### CHASE Delaney #### [facility] [address] [place] [address] Radiator Cleaner: Gamaliel Calderon DO PH,Ur 7.0 Normal 5.0-8.0 [facility] Comment on above: Performed By: #### CHASE Delaney #### [facility] [address] [place] [address] Radiator Cleaner: Gamaliel Calderon DO Protein Ql (U) 1+ Abnormal NEG [facility] Comment on above: Performed By: #### CHASE Delaney #### [facility] [address] [place] [address] Radiator Cleaner: Gamaliel Calderon DO Spec. [place],Ur 1.018 Normal 1.000-1.030 [facility] Comment on above: Performed By: #### CHASE Delaney #### [facility] [address] [place] [address] Radiator Cleaner: Gamaliel Calderon DO Turbidity CLEAR Normal CLEAR [facility] Comment on above: Performed By: #### CHASE Delaney #### [facility] [address] [place] [address] Radiator Cleaner: Gamaliel Calderon DO Urobilinogen,Ur Normal Normal NORM [facility] Comment on above: Performed By: #### CHASE Delaney #### [facility] [address] [place] [address] Radiator Cleaner: Gamaliel Calderon DO Urinalysis,Microon 1 ----- Normal [facility] Comment on above: Performed By: #### CHASE Delaney ####[facility] [address] [place] [address] Lab Director: Gamaliel Calderon DO Amorphous sediment LM Ql (Urine sed) 1+ Abnormal NONE [facility] Comment on above: Performed By: #### CHASE Delaney ####[facility] Swk3941 [place] [address] Lab Director: Gamaliel Calderon DO Bacteria FEW Abnormal NONE [facility] Comment on above: Performed By: #### CHASE Delaney ####[facility] Eci0591 [facility], [place] [phone] Director: Gamaliel Calderon DO Casts NOT REPORTED Normal [facility] Comment on above: Performed By: #### CHASE Delaney ####[facility] Scn4299 [facility], [place] [phone] Director: Gamaliel Calderon DO Crystals LM Nom (Urine sed) NOT REPORTED Normal NONE [facility] Comment on above: Performed By: #### CHASE Delaney ####[facility] Bhq5055 [facility], [place] [phone] Director: Gamaliel Calderon DO Epithelial cells LM Ql (Urine sed) 0 TO 2 Normal [facility] Comment on above: Performed By: #### CHASE Delaney ####[facility] [id number] [facility], [place] [phone] Director: Gamaliel Calderon DO Epithelial, Renal NOT REPORTED Normal 0 [facility] Comment on above: Performed By: #### CHASE Delaney ####[facility] Adx9340 [facility], [place] [phone] Director: Gamaliel Calderon DO Mucus Strands NOT REPORTED Normal NONE [facility] Comment on above: Performed By: #### CHASE Delaney ####[facility] Bun2747 [facility], [place] [phone] Director: Gamaliel Calderon DO Other Observations NOT REPORTED Normal NREQ [facility] Comment on above: Performed By: #### CHASE Delaney ####[facility] [address] [facility], [place] [phone] Director: Gamaliel Calderon DO Trichomonas NOT REPORTED Normal NONE [facility] Comment on above: Performed By: #### U A, CORINAICAO ####[facility] [address] [place] [address] Lab Director: Gamaliel Calderon DO Urine RBC's 20 TO 50 Normal [facility] Comment on above: Performed By: #### U CHASE Diez ####[facility] [address] [place] [address] Lab Director: Gamaliel Calderon DO Urine WBC's 10 TO 20 Normal [facility] Comment on above: Performed By: #### U CHASE Diez ####[facility] [address] [place] [address] Lab Director: Gamaliel Calderon DO Yeast NOT REPORTED Normal NONE [facility] Comment on above: Performed By: #### U CHASE Diez ####[facility] [address] [place] [address] Lab Director: Gamaliel Calderon DO VAGINITIS DNA PROBEon 2020 Direct Exam Method of testing is a DNA probe intended for detection and identification of Prerna species, Gardnerella vaginalis, and Trichomonas vaginalis nucleic acid in vaginal fluid specimens from patients with symptoms of vaginitis/vaginosis. [place] Special Requests NOT REPORTED [place] Specimen Description .VAGINA [place] Vaginitis DNA Probeon 2020 Vaginitis DNA Probe Specimen Description .VAGINA Special Requests NOT REPORTED Direct Exam NEGATIVE for Gardnerella vaginalis NEGATIVE for Prerna sp. NEGATIVE for Trichomonas vaginalis Method of testing is a DNA probe intended for detection and identification of Prerna species, Gardnerella vaginalis, and Trichomonas vaginalis nucleic acid in vaginal fluid specimens from patients with symptoms of vaginitis/vaginosis. Report Status FINAL 04/10/2020 Normal [facility] Comment on above: Performed By: #### V AGDNA #### [facility] [address] [place] [address] Radiator Cleaner: Gamaliel Calderon DO Group A Strep DNAon 04-01-20 20 Group A Strep DNA Specimen Description .THROAT SWAB Special Requests NOT REPORTED Direct Exam Negative: Specimen negative for Streptococcus pyogenes by DNA amplification. Report Status FINAL 04/01/2020 Normal [facility] Comment on above: Performed By: #### G ASDNA ####[facility] Eyo4147 [facility] [place] [address] Lab Director: Gamaliel Calderon DOMercy [address] [place] [address] Lab Director: Yeyo Spencer MD HCG, ,Urineon 03-31 Beta HCG ( test) Ql (U) Negative NEGATIVE [place] Comment on above: Specimens with hCG l evels near the threshold of the test (25 mIU/mL) may give a negative or indeterminate result. In such cases, another test should be performed with a new specimen in 48-72 hours. If early is suspected clinically in this setting, correlation with quantitative serum b-hCG level is suggested. Beta HCG ( test) Ql (U) Negative Normal NEG [facility] Comment on above: Result Comment: Spec [...] By: #### U HCG, UAX, UMICAO #### [facility] [address] [facility] [place] [address] Radiator Cleaner: Gamaliel Calderon DO Microscopic Urinalysison Amorphous, UA NOT REPORTED None [facility] [place] Bacteria, UA MODERATE Abnormal None [facility], [place] Casts UA NOT REPORTED /LPF [facility], [place] Crystals, UA NOT REPORTED None /HPF [facility] [place] Epithelial Cells UA 5 TO 10 /HPF [place] Mucus, UA NOT REPORTED None [place] Other Observations UA NOT REPORTED NOT REQ. [place] RBC (U) [#/Vol] 0 TO 2 /HPF [facility] [place], [place] Renal Epithelial, UA NOT REPORTED 0 /HPF [place] Trichomonas, UA NOT REPORTED None [facility] [place] WBC, UA 0 TO 2 /HPF [place] Yeast, UA NOT REPORTED None [place] Otheron 03-31-2020 Interpretation and review of laboratory results Abnormal [place] STREP SCREEN GROUP A THROATo n 03-31-2020 S. pyogenes Ag IA Ql (Unsp spec) Rapid Strep A negative. A negative Rapid Group A Strep Screen result does not rule out the possibility of Group A Streptococci in the specimen. The [place] [employer] recommends confirmation testing. Therefore, a Group A Strep DNA test will be performed. [place] Special Requests NOT REPORTED [place] Specimen Description .THROAT [place] Strep Gr A Direct Agon 03-31 Strep Gr A Direct Ag Specimen Descriptio n .THROAT Special Requests NOT REPORTED Direct Exam Rapid Strep A negative. A negative Rapid Group A Strep Screen result does not rule out the possibility of Group A Streptococci in the specimen. The [place] [employer] recommends confirmation testing. Therefore, a Group A Strep DNA test will be performed. Report Status FINAL 03/31/2020 Normal [facility] Comment on above: Performed By: #### S GPA #### [facility] [address] [facility] [place] [address] Radiator Cleaner: Gamaliel Calderon DO UA w/Reflex Cultureon 2019 Acetoacetic Acid,Ur Negative Normal NEG [facility] Comment on above: Performed By: #### U HCG, UAX, UMICAO #### [facility] [address] [place] [address] Radiator Cleaner: Gamaliel Calderon DO Bilirubin, SemiQt,Ur Presumptive positiv e. Unable to confirm due to unavailability of reagent. Abnormal NEG [facility] Comment on above: Performed By: #### U HCG, UAX, UMICAO #### [facility] [address] [place] [address] Radiator Cleaner: Gamaliel Calderon DO Color (U) YELLOW Normal YEL [facility] Comment on above: Performed By: #### U HCG, UAX, UMICAO #### [facility] [address] [place] [address] Radiator Cleaner: Gamaliel Calderon DO Comment NOT REPORTED Normal [facility] Comment on above: Performed By: #### U HCG, UAX, UMICAO #### [facility] [address] [place] [address] Radiator Cleaner: Gamaliel Calderon DO Glucose Ql (U) Negative Normal NEG [facility] Comment on above: Performed By: #### U HCG, UAX, UMICAO #### [facility] [address] [place] [address] Radiator Cleaner: Gamaliel Calderon DO Hemoglobin, Ur Negative Normal NEG [facility] Comment on above: Performed By: #### U HCG, UAX, UMICAO #### [facility] [address] [place] [address] [place] [address] Radiator Cleaner: Gamaliel Calderon DO Leukocyte esterase Test strip Ql (U) Negative Normal NEG [facility] Comment on above: Performed By: #### U HCG, UAX, UMICAO #### [facility] [address] [place] [address] Radiator Cleaner: Gamaliel Calderon DO Nitrite,Ur Negative Normal NEG [facility] Comment on above: Performed By: #### U HCG, UAX, UMICAO #### [facility] [address] [facility] [place] [address] Radiator Cleaner: Gamaliel Calderon DO PH,Ur 5.5 Normal 5.0-8.0 [facility] Comment on above: Performed By: #### U HCG, UAX, UMICAO #### [facility] [address] [place] [address] Radiator Cleaner: Gamaliel Calderon DO Protein Ql (U) Negative Normal NEG [facility] Comment on above: Performed By: #### U HCG, UAX, UMICAO #### [facility] [address] [place] [address] Radiator Cleaner: Gamaliel Calderon DO Spec. [place],Ur 1.028 Normal 1.000-1.030 [facility] Comment on above: Performed By: #### U HCG, UAX, UMICAO #### [facility] [address] [place] [address]. [place] [address] Radiator Cleaner: Gamaliel Calderon DO Turbidity CLOUDY Abnormal CLEAR [facility] Comment on above: Performed By: #### U HCG, UAX, UMICAO #### [facility] [address] [place] [address] Radiator Cleaner: Gamaliel Calderon DO Urobilinogen,Ur Normal Normal NORM [facility] Comment on above: Performed By: #### U HCG, UAX, UMICAO #### [facility] [address] [place] [address] Radiator Cleaner: Gamaliel Calderon DO Urinalysis Reflex to Culture on 03-31-2020 Bilirubin Urine Presumptive positive . Unable to confirm due to unavailability of reagent. Abnormal NEGATIVE [facility] [place] Color, UA YELLOW YELLOW [facility] [place] Glucose, Ur Negative NEGATIVE [facility] [place] Ketones Ql (U) Negative NEGATIVE [facility], [place] Leukocyte esterase Test strip Ql (U) Negative NEGATIVE [facility], [place] Nitrite, Urine Negative NEGATIVE [facility], [place] pH, UA 5.5 [place] Protein (U) [Mass/Vol] Negative NEGATIVE [facility], [place] Specific [place], UA 1.028 [facility], [place] Turbidity UA CLOUDY Abnormal CLEAR [place] Urinalysis Comments NOT REPORTED [facility], [place] Urine Hgb Negative NEGATIVE [facility], [place] Urobilinogen, Urine Normal Normal [place] Urinalysis,Microon 0 ----- Normal [facility] Comment on above: Performed By: #### U HCG, UAX, UMICAO #### [facility] [address] [place] [address] Radiator Cleaner: Gamaliel Calderon DO Amorphous sediment LM Ql (Urine sed) NOT REPORTED Normal [facility] Comment on above: Performed By: #### U HCG, UAX, UMICAO #### [facility] [address] [place] [address] Radiator Cleaner: Gamaliel Calderon DO Bacteria MODERATE Abnormal [facility] Comment on above: Performed By: #### U HCG, UAX, UMICAO #### [facility] [address] [place] [address] Radiator Cleaner: Gamaliel Calderon DO Casts NOT REPORTED Normal [facility] Comment on above: Performed By: #### U HCG, UAX, UMICAO #### [facility] [address] [place] [address] Radiator Cleaner: Gamaliel Calderon DO Crystals LM Nom (Urine sed) NOT REPORTED Normal [facility] Comment on above: Performed By: #### U HCG, UAX, UMICAO #### [facility] [address] [place] [address] [place] [address] Radiator Cleaner: Gamaliel Calderon DO Epithelial cells LM Ql (Urine sed) 5 TO 10 Normal [facility] Comment on above: Performed By: #### U HCG, UAX, UMICAO #### [facility] [address] [place] [address] Radiator Cleaner: Gamaliel Calderon DO Epithelial, Renal NOT REPORTED Normal 0 [facility] Comment on above: Performed By: #### U HCG, UAX, UMICAO #### [facility] [address] [place] [id number] Radiator Cleaner: Gamaliel Calderon DO Mucus Strands NOT REPORTED Normal NONE [facility] Comment on above: Performed By: #### U HCG, UAX, UMICAO #### [facility] [address] [place] [id number] Radiator Cleaner: Gamaliel Calderon DO Other Observations NOT REPORTED Normal NREQ [facility] Comment on above: Performed By: #### U HCG, UAX, UMICAO #### [facility] [address] [place] [id number] Radiator Cleaner: Gamaliel Calderon DO Trichomonas NOT REPORTED Normal NONE [facility] Comment on above: Performed By: #### U HCG, UAX, UMICAO #### [facility] [address] [place] [id number] Radiator Cleaner: Gamaliel Calderon DO Urine RBC's 0 TO 2 Normal [facility] Comment on above: Performed By: #### U HCG, UAX, UMICAO #### [facility] [address] [place] [id number] Radiator Cleaner: Gamaliel Calderon DO Urine WBC's 0 TO 2 Normal [facility] Comment on above: Performed By: #### U HCG, UAX, UMICAO #### [facility] [address] [place] [address] Radiator Cleaner: Gamaliel Calderon DO Yeast NOT REPORTED Normal NONE [facility] Comment on above: Performed By: #### U HCG, UAX, UMICAO #### [facility] [address] [place] [address] Radiator Cleaner: Gamaliel Calderon DO XR CHEST PORTABLEon 03-31-20 [...] F Sanchez MD 03/31/20 Final result Normal [facility] Domingo, Mhpn Incoming Radiant Results From [facility] - 03/31/2020 1:07 PM EST EXAMINATION: ONE [...] grossly intact. IMPRESSION: No acute cardiopulmonary pathology. [facility] [place], [place] EXAMINATION: ONE XRA Y VIEW [...] structures and soft tissues are grossly intact. [place] No acute cardiopulmonary pathology. [place] Otheron 08-19-2019 Direct Exam Positive Abnormal [place] VAGINITIS DNA PROBEon 2019 Direct Exam Negative [place] Direct Exam Method of testing is a DNA probe intended for detection and identification of Prerna species, Gardnerella vaginalis, and Trichomonas vaginalis nucleic acid in vaginal fluid specimens from patients with symptoms of vaginitis/vaginosis. [place] Interpretation and review of laboratory results Abnormal [place] Special Requests NOT REPORTED [place] Specimen Description .VAGINA [place] Social History Date Type Detail Facility Start: 04-29-2020 History SDOH Financial 5 [place] Start: 04-29-2020 History SDOH Food Worry 1 [place] Start: 04-29-2020 History SDOH Transpo rt Med 2 [place] Start: 03-31-2020 End: 01-16-2022 Tobacco use and exposure Never used [place] Start: 08-19-2019 End: 01-16-2022 Tobacco smoking status NHIS Never smoker [facility] Start: 08-19-2019 End: 01-16-2022 Alcohol intake Current non-drinker of alcohol (finding) [place] Start: 2003 Sex Assigned At Not on file [place] Exposure to SARS-CoV -2 (event) Unable to assess [place] Exposure to SARS-CoV -2 (event) Not sure [place] History of tobacco use Passive smoker [facility] Perfect Audience Work Phone: Tobacco smoking status No Smokin g Status Entered [facility] Sex Assigned At Female [facility] Vital Signs Date Time Vital Sign Value Performing Clinician Facility 09-27-2022 11:05-0400 Body temperature 98.6 [degF] Marvin Bartlett [facility] 09-27-2022 11:05-0400 bodymassindex -0.22 Marvin Bartlett [facility] Comment on above: Result Comment: ^~:![facility]Score [facility] 09-27-2022 11:05-0400 Diastolic blood pressure 63 mm[Hg] Marvin Bartlett [facility] 09-27-2022 11:05-0400 Heart rate 80 /min Marvin Bartlett [facility] 09-27-2022 11:05-0400 Height/Length Percentile 45.55 Marvin Bartlett [facility] Comment on above: Result Comment: ^~:!Percentile [facility] 09-27-2022 11:05-0400 Height/Length Z-Score -0.11 Marvin Bartlett [facility] Comment on above: [facility] 11:05-0400 Respiratory rate 16 /min Marvin Bartlett [facility] 09-27-2022 11:05-0400 SaO2% (BldA) [Mass fraction] 98 % Marvin Bartlett [facility] 09-27-2022 11:05-0400 Systolic blood pressure 103 mm[Hg] Marvin Bartlett [facility] 09-27-2022 11:05-0400 weight -0.26 Marvin Bartlett [facility] Comment on above: Result Comment: ^~:![facility] 06-21-2023 11:05-0400 Weight Percentile 39.74 % Marvin Bartlett [facility] Comment on above: Result Comment: ^~:!Percentile Source -C [place] 04-10-2020 14:06-0500 Body Temperature 98.4 [degF] [facility] [place] 04-10-2020 14:06-0500 BP Diastolic 61 mm[Hg] Donato [employer] [facility], [place] 04-10-2020 14:06-0500 BP Systolic 118 mm[Hg] [facility] [place] 04-10-2020 14:06-0500 Height 160 cm [place] [facility] [place] 04-10-2020 14:06-0500 Pulse (Heart Rate) 84 /min [place] [employer] [facility] 04-10-2020 14:06-0500 Pulse Oximetry 99 % Don[place] [employer] [facility], [place] 04-10-2020 14:06-0500 Respiratory Rate 20 /min [place] [employer] [facility] 03-31-2020 12:06-0500 BMI (Body Mass Index) 21.46 kg/m2 [place] [employer] [facility], [place] 03-31-2020 12:06-0500 Body Temperature 98.2 [degF] [place] [employer] [facility] 03-31-2020 12:06-0500 Body weight 56.7 kg [place] [employer] [facility] 03-31-2020 12:06-0500 BP Diastolic 60 mm[Hg] [place] [employer] [facility] 03-31-2020 12:06-0500 BP Systolic 112 mm[Hg] [facility] [facility] [place] 03-31-2020 12:06-0500 Height 162.6 cm [place] [employer] [facility] 03-31-2020 12:06-0500 Pulse (Heart Rate) 80 /min [place] [employer] [facility], [place] 03-31-2020 12:06-0500 Pulse Oximetry 99 % [place] [employer] [facility], [place] 03-31-2020 12:06-0500 Respiratory Rate 14 /min [facility], [place] Functional Status Date Assessment Result Facility 09-27-2022 Functional Status N/A [facility] Hospital Discharge instructions 09-27-2022 Note Date & Type Note Facility 09-27-2022 Hospital Discharg e instructions Patient Education 09/27/2022 11:39:36 Contact Dermatitis, Ucev-[id number]-[id number] Contact Dermatitis Dermatitis is redness, soreness, and [...] perfumes, and dyes. Medicines Take or apply [id number] and prescription medicines only as told by [...] and water are not available, use hand manager generation. General instructions Avoid the things that caused [...] provider. Document Revised: 01/09/2022 Document Reviewed: 01/09/2022 [employer] Patient Education 2022 [employer]. Follow Up Care 09/27/2022 11:01:54 With:Anaid LUTZ Address: [address] [place] [address] [address] [place] [address]- Business (1) When:09/30/2022 11:28:16 Comments:Follow-up with your primary care provider in 3 to 5 days. If symptoms worsen, do not improve, or new symptoms arise please report back to emergency department for further evaluation. [facility] Evaluation + Plan note Note Date & Type Note Facility Evaluation + Plan note No data available for this section [facility] Evaluation note Note Date & Type Note Facility Evaluation note Diagnosis Screen for STD (sexually transmitted disease) Screening examination for venereal disease Vaginal discharge Leukorrhea, not specified as infective documented in this encounter [employer] Phone: Evaluation note Note Date & Type Note Facility Evaluation note Diagnosis Acute vaginitis Vaginitis and vulvovaginitis, unspecified documented in this encounter LETI ZAYASCHEMA [employer] Phone: Progress note Note Date & Type Note Facility Progress note No data available for this section [facility] Assessments Diagnosis Unprotected sexual intercourse Problems related [...] FoundDocuments on File Type Date Recorded Patient Test Evaluator Expl anation Advance Directives and Living Will Power of Chief I Dispatcher Documents on File Type Date Recorded Patient Test Evaluator Expl anation ACP-Advance Directive ACP-Power of Chief I Dispatcher Documents on File Type Date Recorded Patient Test Evaluator Expl anation ACP-Advance Directive ACP-Power of Chief I Dispatcher Healthcare Agents on File Name Relationship Healthcare Agent [facility] Communication Sonia Freeman Parent Primary Decision Maker Discharge Instructions * Instructions* Ilene Tapia PA-C - 03/31/2020 If you develop fever, worsening abd pain, right lower abdominal pain, vaginal bleeding/ discharge, chest pain, vomiting please return to ED. Recommend outpatient COVID test. * Attachments The following attachments cannot be sent through Care Everywhere. * URI (Upper Respiratory Infection): Pediatric (Mauritanian) * Urticaria: Teen (Mauritanian) documented in this encounter* Attachments The following attachments cannot be sent through Care Everywhere. * UTI (Urinary Tract Infection): Female: Teen (Mauritanian) * Abdominal Pain: Pediatric (Mauritanian) documented in this encounter Reason for Referral Status Reason Specialty Diagnoses / Procedures Referre d By Contact Referred To Contact Closed Radiology Diagnoses Abdominal pain, suprapubic Cyst of ovary, unspecified laterality Procedures US PELVIS COMPLETE US PELVIS LIMITED Rosalinda Sargent, NURSING UNIT CLERK - MANAGER BALANCE [address] [place] [address] Summary Purpose Family History No Family History [...] US PELVIS COMPLETE US PELVIS LIMITED Rosalinda Sargent, NURSING UNIT CLERK - MANAGER BALANCE [address] [place] [address] Ordered Prescriptions (unrec ognized section and content) [...] and content) DATE CREATED AUTHOR 06/17/2020 [facility] DATE CREATED AUTHOR AUTHOR'S ORGANIZ ATION 12/08/2020 [facility] DATE CREATED AUTHOR AUTHOR'S ORGANIZ ATION 01/18/2022 [facility] DATE CREATED AUTHOR AUTHOR'S ORGANIZ ATION 07/15/2022 [facility] DATE CREATED AUTHOR AUTHOR'S ORGANIZ ATION [facility]20[facility] DATE CREATED AUTHOR AUTHOR'S ORGANIZ ATION 09/06/[address] [facility] dical Specialists [employer] Care Teams (unrecognized sec tion and content) Import Export Coordinator Relationship Specialty Start Date End Date Roland Kraus MD [address] [place], [place] [id number] PCP - General Pediatrics 03/04/21 FOR RECORDS [...] BE BASED ON THE PRIMARY CLINICAL RECORDS. [employer] provides no warranty or guarantee of the accuracy or completeness of information in this document.
== END 2023-09-19 08:36 | disposition home or self-care (01) ==
LOC: NOMS 08:36
PROVIDERS: Visit Provider Obstetrics & Gynecology
DX: O26.843 Uterine size-date discrepancy, third trimester (principal); Z3A.33 33 weeks gestation of pregnancy
CPT/HCPCS: 76816

== ENCOUNTER 2023-10-17 19:13 | Outpatient (REF) | payer OTHER, SELFPAY | END 2023-10-17 19:14 | disposition home or self-care (01) | LOC: LAB 19:13 | PROVIDERS: Visit Provider Obstetrics & Gynecology | DX: Z34.93 Encounter for supervision of normal pregnancy, unspecified, third trimester (principal) | CPT/HCPCS: 87081 ==